=== PATIENT | female | born 1940 | race Caucasian/White ===

== ENCOUNTER 2016-09-17 20:30 | Emergency (ER) | payer MEDICARE, MEDICAID ==
--- NOTE | 2016-09-17 20:56 | ER Document Report ---
ED General - General Stated Complaint: ALTERED MENTAL STATUS Time seen by provider: 20:55 Mode of Arrival: Medic Information source: Outside Facility Records TRAVEL OUTSIDE OF THE [place] IN LAST 30 DAYS: No - HPI Patient complains to provider of: altered mental status Onset: This evening Notes: Patient is a 76-year-old female sent from local half-way for change in mental status, patient is nonverbal which half-way staff reports is not her baseline, I am unable to obtain any details from patient - Related Data Allergies/Adverse Reactions: codeine [Codeine] Allergy (Mild, Verified 03/30/14 01:51) Past Medical History - General Information source: Outside Facility Records - Social History Smoking Status: Unknown if Ever Smoked Family History: Reviewed & Not Pertinent, Other - Past Medical History Cardiac Medical History: Reports: Hx Heart Attack, Hx Hypercholesterolemia, Hx Hypertension Pulmonary Medical History: Denies: Hx Tuberculosis Neurological Medical History: Reports: Hx Cerebrovascular Accident Endocrine Medical History: Reports: Hx Diabetes Mellitus Type 1, Hx Diabetes Mellitus Type 2, Hx Hypothyroidism Renal/ Medical History: Reports: Hx End Stage Renal Disease - CRF, Hx Renal Insufficiency Musculoskeltal Medical History: Reports Hx Arthritis Skin Medical History: Reports Hx Psoriasis Psychiatric Medical History: Reports: Hx Bipolar Disorder, Hx Dementia, Hx Depression Past Surgical History: Reports: Hx Cardiac Surgery - pacemaker, Hx Pacemaker - Immunizations Hx Diphtheria, Pertussis, Tetanus Vaccination: Yes Hx Pneumococcal Vaccination: 08/23/13 Review of Systems - Review of Systems -: Yes ROS unobtainable due to patient's medical condition Physical Exam - Vital signs Vitals: Temp Pulse Resp BP Pulse Ox 97.9 F 59 L 16 149/55 H 94 09/17/16 20:37 09/17/16 20:37 09/17/16 20:37 09/17/16 20:37 09/17/16 20:37 Interpretation: Normal - General General appearance: Other - non-verbal In distress: Mild - HEENT Head: Normocephalic, Atraumatic Eyes: Normal Conjunctiva: Normal Eyelashes: Normal Pupils: Pinpoint Ears: Normal Sinus: Normal Mucous membranes: Other - Drooling Neck: Normal - Respiratory Respiratory status: No respiratory distress Chest status: Nontender Breath sounds: Nonproductive cough, Rhonchi Chest palpation: Normal - Cardiovascular Rhythm: Regular Heart sounds: Normal auscultation - Abdominal Inspection: Normal Distension: No distension Bowel sounds: Normal Tenderness: Nontender Organomegaly: No organomegaly - Back Back: Normal - Extremities Arm: Other - Left upper extremity contracted - Neurological On[place]imo Coma Scale Eye Opening: To Voice [place] Coma Scale Verbal: None [place] Coma Scale Motor: Withdraws to Pain [place] Coma Scale Total: 8 - Skin Skin Temperature: Warm Skin Moisture: Dry Skin Color: Normal Skin irregularity: other - Diffuse plaque psoriasis Course - Re-evaluation Re-evalutation: 09/18/16 02:28 Patient vital signs are stable, she has been resting comfortably, evaluation in the emergency room consistent with urinary tract infection, patient periodically wakes up, is able to answer yes and no questions appropriately, she was given a dose of antibiotics in the emergency room, she will be discharged with a prescription for same and advised to follow-up with a primary care provider or return if symptoms worsen - Vital Signs Vital signs: Temp Pulse Resp BP Pulse Ox 97.9 F 59 L 16 129/53 H 97 09/17/16 20:37 09/17/16 20:37 09/18/16 02:09 09/18/16 02:09 09/18/16 02:09 - Laboratory Result Diagrams: 09/17/16 22:45 09/17/16 22:45 Laboratory results interpreted by me: 09/17/16 09/17/16 09/17/16 21:25 22:45 22:45 RDW 14.5 H Sodium 147.1 H BUN 28 H Est GFR ( Amer) 52 L Est GFR (Non-Af Amer) 43 L Glucose 142 H Urine Protein 100 H Urine Blood MODERATE H Ur Leukocyte Esterase LARGE H - Diagnostic Test Radiology reviewed: Image reviewed, Reports reviewed - EKG Interpretation by Me EKG shows normal: Sinus rhythm Rate: Normal Rhythm: NSR [place]/QRS: RBBB, LAHB/LAFB When compared to previous EKG there are: No significant change Discharge - Discharge Clinical Impression: UTI (lower urinary tract infection) Condition: Stable Disposition: HOME, SELF-CARE Instructions: Urinary Tract Infection ([facility]) Additional Instructions: Follow up with your primary care provider in one to 2 days. Return to the emergency room immediately if symptoms worsen or any additional concerns. Prescriptions: Sulfamethoxazole/Trimethoprim [Bactrim Ds Tablet] 1 each PO BID #20 tablet
[2016-09-17] MEDS ORDERED: ONDANSETRON HCL INJ/PF 4 MG/2 ML SDV IV ONE (21:29)
[2016-09-17 22:12] LABS: VENOUS BLOOD BASE EXCESS 3.6 mmol/L; VENOUS BLOOD HCO3 30.2 mmol/L (20-32); VENOUS BLOOD PCO2 53.9 mmHg (35-63); VENOUS BLOOD PH 7.37 (7.30-7.42)
[2016-09-17 22:29] LABS: APPEARANCE,URINE CLOUDY; BILIRUBIN,URINE NEGATIVE (NEGATIVE); GLUCOSE, URINE NEGATIVE (NEGATIVE); KETONES,URINE NEGATIVE (NEGATIVE); LEUKOCYTE ESTERASE,URINE LARGE (NEGATIVE); NITRITE,URINE NEGATIVE (NEGATIVE); PROTEIN,URINE 100 mg/dL (NEGATIVE); URINE SPECIFIC GRAVITY 1.018; UROBILINOGEN,URINE NEGATIVE mg/dL (<2.0)
[2016-09-17 22:37] LABS: URINE BARBITURATES SCREEN NEGATIVE; URINE METHADONE SCREEN NEGATIVE; URINE OPIATES LOW NEGATIVE; URINE PHENCYCLIDINE SCREEN NEGATIVE
[2016-09-17 23:16] LABS: ABSOLUTE EOSINOPHILS # (AUTO) 0.1 10^3/uL (0.0-0.6); ABSOLUTE LYMPHOCYTES (AUTO) 1.7 10^3/uL (0.5-4.7); ABSOLUTE MONOCYTES (AUTO) 0.4 10^3/uL (0.1-1.4); ABSOLUTE NEUT (AUTO) 6.4 10^3/uL (1.7-8.2); BASOPHILS % (AUTO) 0.2 % (0-2); EOSINOPHILS % (AUTO) 1.1 % (0-6); HEMATOCRIT 40.3 % (36.0-47.0); HEMOGLOBIN 13.3 g/dL (12.0-15.5); HGB HCT DIFFERENCE -0.4; LYMPHOCYTES % (AUTO) 19.7 % (13-45); MEAN CORPUSCULAR HEMOGLOBIN 30.6 pg (27.0-33.4); MEAN CORPUSCULAR HGB CONC 32.9 g/dL (32.0-36.0); MEAN CORPUSCULAR VOLUME 93 fl (80-97); MONOCYTES % (AUTO) 4.8 % (3-13); RED BLOOD COUNT 4.33 10^6/uL (3.72-5.28); RED CELL DISTRIBUTION WIDTH 14.5 % (11.5-14.0); SEGMENTED NEUTROPHILS % (AUTO) 74.2 % (42-78); WHITE BLOOD COUNT 8.6 10^3/uL (4.0-10.5)
[2016-09-17 23:22] LABS: ALANINE AMINOTRANSFERASE 19 U/L (9-52); ALBUMIN 4.3 g/dL (3.5-5.0); ALKALINE PHOSPHATASE 64 U/L (38-126); ANION GAP 14 (5-19); ASPARTATE AMINO TRANSFERASE 21 U/L (14-36); BILIRUBIN,TOTAL 0.3 mg/dL (0.2-1.3); BLOOD UREA NITROGEN 28 mg/dL (7-20); CARBON DIOXIDE 28 mmol/L (22-30); CHLORIDE 105 mmol/L (98-107); CREATININE RESULT 1.22 mg/dL (0.52-1.25); GLUCOSE 142 mg/dL (75-110); MAGNESIUM 1.8 mg/dL (1.6-2.3); POTASSIUM 4.7 mmol/L (3.6-5.0); SODIUM 147.1 mmol/L (137-145); TOTAL PROTEIN 7.4 g/dL (6.3-8.2)
[2016-09-17] MEDS ORDERED: SULFAMETHOXAZOLE/TRIMETHOPRIM 800-160 MG TABLET PO ONE (23:32)
[2016-09-17] MEDS ORDERED: NORMAL SALINE 1000 ML 1,000 ML IV PRN (23:51)
[2016-09-18 07:26] VITALS: BP 128/59
--- NOTE | 2016-09-18 12:43 | EKG REPORT ---
SEVERITY:- ABNORMAL ECG - SINUS RHYTHM RBBB AND LAFB : Confirmed by: Maria Manrique MD 18-Sep-2016 12:42:30
== END 2016-09-18 07:28 | disposition home or self-care (01) ==
LOC: ER 20:30
DX: N39.0 Urinary tract infection, site not specified (principal); R41.82 Altered mental status, unspecified; E78.00 Pure hypercholesterolemia, unspecified; E11.22 Type 2 diabetes mellitus with diabetic chronic kidney disease; I12.0 Hypertensive chronic kidney disease with stage 5 chronic kidney disease or end stage renal disease; N18.6 End stage renal disease; I25.2 Old myocardial infarction; Z86.73 Personal history of transient ischemic attack (TIA), and cerebral infarction without residual deficits; Z88.6 Allergy status to analgesic agent; Z95.0 Presence of cardiac pacemaker
CPT/HCPCS: 93005; 99285; 96361; 96374; 36415; 87040; 87086; 83735; 85025; 87088; 80053; 81001; 87186; 80307; 82803; 83880; 71010; 70450; 93010; J2405; J7030

== ENCOUNTER 2016-10-02 04:25 | Emergency (ER) | payer MEDICARE, MEDICAID ==
--- NOTE | 2016-10-02 04:45 | ER Document Report ---
ED Fall - General Stated Complaint: FALL NO KNOWN INJURY Notes: Patient is a 76-year-old female that comes by EMS from [facility]-term [facility] for chief complaint of a fall, patient was reported to have rolled out of her bed onto a rubber mat which is adjacent to her bed, the fall is approximately 2 feet, patient fell, staff witnessed her after she had rotated herself around on the mat. No loss of consciousness, no reported head or neck injury, no vomiting reported. Patient is denying any areas of pain at this time. Patient is not on any blood thinners. TRAVEL OUTSIDE OF THE [place] IN LAST 30 DAYS: No - Related data Allergies/Adverse Reactions: codeine [Codeine] Allergy (Mild, Verified 03/30/14 01:51) Past Medical History - General Information source: Patient, Emergency Med Personnel - Social History Smoking Status: Never Smoker Frequency of alcohol use: None Drug Abuse: None Lives with: Family Family History: Reviewed & Not Pertinent, Other - Past Medical History Cardiac Medical History: Reports: Hx Heart Attack, Hx Hypercholesterolemia, Hx Hypertension Pulmonary Medical History: Denies: Hx Tuberculosis Neurological Medical History: Reports: Hx Cerebrovascular Accident Endocrine Medical History: Reports: Hx Diabetes Mellitus Type 2, Hx Hypothyroidism Renal/ Medical History: Reports: Hx End Stage Renal Disease - CRF, Hx Renal Insufficiency Musculoskeltal Medical History: Reports Hx Arthritis Skin Medical History: Reports Hx Psoriasis Psychiatric Medical History: Reports: Hx Bipolar Disorder, Hx Dementia, Hx Depression Past Surgical History: Reports: Hx Cardiac Surgery - pacemaker, Hx Pacemaker - Immunizations Hx Diphtheria, Pertussis, Tetanus Vaccination: Yes Hx Pneumococcal Vaccination: 08/23/13 Review of Systems - Review of Systems Constitutional: No symptoms reported EENT: No symptoms reported Cardiovascular: No symptoms reported Respiratory: No symptoms reported Gastrointestinal: No symptoms reported Genitourinary: No symptoms reported Female Genitourinary: No symptoms reported Musculoskeletal: See HPI Skin: No symptoms reported Hematologic/Lymphatic: No symptoms reported Neurological/Psychological: See HPI Physical Exam - Vital signs Vitals: Temp Pulse Resp BP Pulse Ox 98.1 F 59 L 18 152/47 H 93 10/02/16 04:34 10/02/16 04:34 10/02/16 04:34 10/02/16 04:34 10/02/16 04:34 Interpretation: Normal - General General appearance: Appears well, Alert In distress: None - HEENT Head: Normocephalic, Atraumatic Eyes: Normal Conjunctiva: Normal Extraocular movements intact: Yes Eyelashes: Normal Pupils: PERRL Ears: Normal External canal: Normal Tympanic membrane: Normal Sinus: Normal Nasal: Normal Mouth/Lips: Normal Mucous membranes: Normal Pharynx: Normal Neck: Normal - Respiratory Respiratory status: No respiratory distress Chest status: Nontender Breath sounds: Normal. No: Decreased air movement, Wheezing Chest palpation: Normal - Cardiovascular Rhythm: Regular. No: Tachycardia Heart sounds: Normal auscultation, S1 appreciated, S2 appreciated Murmur: No - Abdominal Inspection: Normal Distension: No distension Bowel sounds: Normal Tenderness: Nontender Organomegaly: No organomegaly - Back Back: Normal - non-tender back and spine, no saddle anesthesia, no signs of injury, patient moving all extremities, normal distal N/V exam, Nontender. No: Tender, Vertebra tenderness - Extremities General upper extremity: Other - left arm contracted slightly, normal UE exam otherwise General lower extremity: Other - patient complains with palpation over bilateraly femoral bursa and proximal thigh areas, otherwise unremarkable exam, no signs of injury - Neurological Neuro grossly intact: Yes Cognition: Normal Orientation: AAOx4 Onesimo Coma Scale Eye Opening: Spontaneous [place] Coma Scale Verbal: Oriented [place] Coma Scale Motor: Obeys Commands [place] Coma Scale Total: 15 Speech: Normal Motor strength normal: LUE, RUE, LLE, RLE Sensory: Normal - Psychological Associated symptoms: Normal affect, Normal mood - Skin Skin Temperature: Warm Skin Moisture: Dry Skin Color: Normal Course - Re-evaluation Re-evalutation: Patient well-appearing, reported at baseline, no signs of injury on exam, small complaints of pain with palpation of her hips and thighs, x-ray negative for any acute abnormality. - Vital Signs Vital signs: Temp Pulse Resp BP Pulse Ox 98.4 F 74 16 110/62 97 10/02/16 05:50 10/02/16 05:50 10/02/16 05:50 10/02/16 05:50 10/02/16 05:50 - Diagnostic Test Radiology reviewed: Image reviewed, Reports reviewed Discharge - Discharge Clinical Impression: Fall Qualifiers: Encounter type: initial encounter Qualified Code(s): W19.XXXA - Unspecified fall, initial encounter Condition: Stable Disposition: HOME, SELF-CARE Additional Instructions: Based on exam questionable for hip pain/injury x-rays were performed of the hips , this shows arthritis but no fracture. No other signs of injury are seen on examination tonight. Follow-up with primary care. Take Tylenol for pain if needed. Return to emergency department for any concerning or worsening symptoms including body swelling, abdominal pain, chest pain, passing out, vomiting, etc.
[2016-10-02 05:51] VITALS: BP 110/62
== END 2016-10-02 06:14 | disposition home or self-care (01) ==
LOC: ER 04:25
DX: M25.551 Pain in right hip (principal); M25.552 Pain in left hip; M79.652 Pain in left thigh; M79.651 Pain in right thigh; W06.XXXA Fall from bed, initial encounter; Y92.122 Bedroom in nursing home as the place of occurrence of the external cause; I25.2 Old myocardial infarction; I12.0 Hypertensive chronic kidney disease with stage 5 chronic kidney disease or end stage renal disease; E11.22 Type 2 diabetes mellitus with diabetic chronic kidney disease; N18.6 End stage renal disease; Z88.5 Allergy status to narcotic agent; Z95.0 Presence of cardiac pacemaker
CPT/HCPCS: 73522; 99284

== ENCOUNTER 2017-01-16 22:50 | Inpatient (IN) | payer MEDICARE, MEDICAID ==
--- NOTE | 2017-01-16 23:08 | ER Document Report ---
ED General - General Stated Complaint: ALTERED MENTAL STATUS Time Seen by Provider: 01/16/17 22:55 Notes: Patient is a 76-year-old female [id number] for chief complaint of altered mental status, EMS was unable to tell me how long patient has had altered mental status, apparently her baseline is being responsive and alert although they believe she is nonverbal, tonight patient was noted to be with decreased responsiveness, only responding to shaking or painful stimuli on initial evaluation reportedly. Patient reportedly takes her pills and cooperates although today she will not. Patient also coughed /vomiting out greenish mucus earlier today, and she was suctioned. No fevers, no diarrhea, no fall or injury, no other symptoms reported. Past medical history of multi-infarct dementia, insulin-dependent diabetes, pacemaker, chronic renal failure, cardiomyopathy. TRAVEL OUTSIDE OF THE [place] IN LAST 30 DAYS: No - Related Data Allergies/Adverse Reactions: codeine [Codeine] Allergy (Mild, Verified 03/30/14 01:51) Past Medical History - General Information source: Transfer Record, Emergency Med Personnel - Social History Smoking Status: Never Smoker Frequency of alcohol use: None Drug Abuse: None Lives with: Family Family History: Reviewed & Not Pertinent, Other - Past Medical History Cardiac Medical History: Reports: Hx Heart Attack, Hx Hypercholesterolemia, Hx Hypertension Pulmonary Medical History: Denies: Hx Tuberculosis Neurological Medical History: Reports: Hx Cerebrovascular Accident Endocrine Medical History: Reports: Hx Diabetes Mellitus Type 2, Hx Hypothyroidism Renal/ Medical History: Reports: Hx End Stage Renal Disease - CRF, Hx Renal Insufficiency Musculoskeltal Medical History: Reports Hx Arthritis Skin Medical History: Reports Hx Psoriasis Psychiatric Medical History: Reports: Hx Bipolar Disorder, Hx Dementia, Hx Depression Past Surgical History: Reports: Hx Cardiac Surgery - pacemaker, Hx Pacemaker - Immunizations Hx Diphtheria, Pertussis, Tetanus Vaccination: Yes Hx Pneumococcal Vaccination: 08/23/13 Review of Systems - Review of Systems Constitutional: No symptoms reported EENT: No symptoms reported Cardiovascular: No symptoms reported Respiratory: No symptoms reported Gastrointestinal: No symptoms reported Genitourinary: No symptoms reported Female Genitourinary: No symptoms reported Musculoskeletal: No symptoms reported Skin: No symptoms reported Hematologic/Lymphatic: No symptoms reported Neurological/Psychological: See HPI Physical Exam - Vital signs Vitals: Temp 98.1 F 01/16/17 22:55 - General General appearance: Other - patient sleeping, grunts when stimulated or addressed, no obvious distress - HEENT Head: Normocephalic, Atraumatic Eyes: Normal Conjunctiva: Normal Extraocular movements intact: Yes Eyelashes: Normal Pupils: Pinpoint Nasal: Normal Mouth/Lips: Normal Mucous membranes: Dry Neck: Normal - Respiratory Respiratory status: No respiratory distress. No: Labored, Tachypnea Breath sounds: Other - a few scattered rhonchi. No: Decreased air movement - Cardiovascular Rhythm: Regular, Bradycardia - borderline Heart sounds: Normal auscultation, S1 appreciated, S2 appreciated - Abdominal Inspection: Normal Tenderness: Nontender. No: Tender, Guarding - Back Back: Normal, Nontender - Extremities General upper extremity: Normal inspection, Normal color. No: Edema, Normal ROM - upper extremity contractures, worse on the left General lower extremity: Normal inspection, Normal color. No: Edema - Neurological Neuro grossly intact: No - grunting, irritable [place] Coma Scale Eye Opening: To Pain [place] Coma Scale Verbal: Incomprehensible [place] Coma Scale Motor: Localizes to Pain [place] Coma Scale Total: 9 - Skin Skin Temperature: Warm Skin Moisture: Dry Skin Color: Normal Course - Re-evaluation Re-evalutation: Patient grunts in response and if she is agitated (moving her, moving her arms for her) she will use her right arm to swing at us. Lungs with some congestion sounds but good air movement. No hypoxia on my evaluation. No tachycardia, hypotension, or fever. Abdomen soft on exam. No obvious cellulitis noted. Workup pending. Urine drug screen performed, this was done because patient's pupils noted to be pinpoint, however this is unremarkable. CT of the head shows no acute abnormality, chest x-ray with no obvious acute findings. CBC shows leukocytosis with elevation of neutrophils but no bandemia, chemistry shows mildly elevated potassium, baseline renal functioning, otherwise unremarkable. Dialysis consistent with infection with bacteria, large amount of white blood cells, this was a catheterized sample. Suspect altered mental status secondary to urinary tract infection in a patient with vascular dementia. Giving Rocephin , patient was given 500 cc fluid bolus. Discussed with Dr. Sherie Mulligan, recommend contacting responsible green party in case patient needs to be restrained because of her altered mental state. 01/17/17 03:29 I spoke with responsible green party/emergency contact Abby Noriega at [phone] , she states that we can do whatever we need to do including possible restraints while patient is altered, however she also makes a request for the patient to have her be placed in DO NOT RESUSCITATE status, she does not want CPR, intubation, or patient placed on ventilation. DNR form completed and signed. Dr. Mulligan admitting to telemetry - Vital Signs Vital signs: Temp Pulse Resp BP Pulse Ox 98.1 F 13 102/55 L 91 L 01/16/17 22:55 01/17/17 03:02 01/17/17 03:02 01/17/17 03:02 - Laboratory Result Diagrams: 01/16/17 23:35 01/16/17 23:35 Laboratory results interpreted by me: 01/16/17 01/16/17 01/16/17 23:35 23:35 23:35 WBC 13.0 H RDW 14.7 H Absolute Neutrophils 9.4 H Potassium 5.5 H BUN 30 H Est GFR ( Amer) 54 L Est GFR (Non-Af Amer) 44 L Glucose 147 H Calcium 10.9 H Ur Leukocyte Esterase MODERATE H Discharge - Discharge Clinical Impression: Altered mental status Qualifiers: Altered mental status type: unspecified Qualified Code(s): R41.82 - Altered mental status, unspecified Urinary tract infection Qualifiers: Urinary tract infection type: site unspecified Hematuria presence: without hematuria Qualified Code(s): N39.0 - Urinary tract infection, site not specified Disposition: ADMITTED INPATIENT Admitting Provider: Hospitalist Unit Admitted: Telemetry
[2017-01-16 23:51] LABS: ABSOLUTE BASOPHILS # (AUTO) 0.1 10^3/uL (0.0-0.2); ABSOLUTE LYMPHOCYTES (AUTO) 2.8 10^3/uL (0.5-4.7); ABSOLUTE MONOCYTES (AUTO) 0.6 10^3/uL (0.1-1.4); ABSOLUTE NEUT (AUTO) 9.4 10^3/uL (1.7-8.2); BASOPHILS % (AUTO) 0.4 % (0-2); EOSINOPHILS % (AUTO) 0.3 % (0-6); HEMATOCRIT 41.4 % (36.0-47.0); HEMOGLOBIN 13.7 g/dL (12.0-15.5); HGB HCT DIFFERENCE -0.3; LYMPHOCYTES % (AUTO) 21.8 % (13-45); MEAN CORPUSCULAR HEMOGLOBIN 30.9 pg (27.0-33.4); MEAN CORPUSCULAR VOLUME 94 fl (80-97); MONOCYTES % (AUTO) 4.9 % (3-13); RED BLOOD COUNT 4.42 10^6/uL (3.72-5.28); RED CELL DISTRIBUTION WIDTH 14.7 % (11.5-14.0); SEGMENTED NEUTROPHILS % (AUTO) 72.6 % (42-78)
[2017-01-17 00:08] LABS: APPEARANCE,URINE CLOUDY; BILIRUBIN,URINE NEGATIVE (NEGATIVE); GLUCOSE, URINE NEGATIVE (NEGATIVE); KETONES,URINE NEGATIVE (NEGATIVE); LEUKOCYTE ESTERASE,URINE MODERATE (NEGATIVE); NITRITE,URINE NEGATIVE (NEGATIVE); PROTEIN,URINE NEGATIVE (NEGATIVE); URINE SPECIFIC GRAVITY 1.023; UROBILINOGEN,URINE NEGATIVE mg/dL (<2.0)
[2017-01-17 00:14] LABS: ALANINE AMINOTRANSFERASE 27 U/L (9-52); ALBUMIN 4.4 g/dL (3.5-5.0); ALKALINE PHOSPHATASE 77 U/L (38-126); ANION GAP 14 (5-19); ASPARTATE AMINO TRANSFERASE 26 U/L (14-36); BILIRUBIN,DIRECT 0.3 mg/dL (0.0-0.4); BILIRUBIN,TOTAL 0.5 mg/dL (0.2-1.3); BLOOD UREA NITROGEN 30 mg/dL (7-20); CALCIUM 10.9 mg/dL (8.4-10.2); CARBON DIOXIDE 29 mmol/L (22-30); CHLORIDE 101 mmol/L (98-107); CREATININE RESULT 1.18 mg/dL (0.52-1.25); GLUCOSE 147 mg/dL (75-110); POTASSIUM 5.5 mmol/L (3.6-5.0); SODIUM 144.3 mmol/L (137-145); TOTAL PROTEIN 7.7 g/dL (6.3-8.2)
[2017-01-17 00:22] LABS: URINE BARBITURATES SCREEN NEGATIVE; URINE METHADONE SCREEN NEGATIVE; URINE OPIATES LOW NEGATIVE; URINE PHENCYCLIDINE SCREEN NEGATIVE
[2017-01-17] MEDS ORDERED: CEFTRIAXONE 1 GM/D5W RTU 50 ML IV ONE (00:36)
[2017-01-17] MEDS ORDERED: NORMAL SALINE 1000 ML 500 ML IV ONE (00:36)
--- NOTE | 2017-01-17 01:01 | RADIOLOGY REPORT (SQ) ---
EXAM DESCRIPTION: CT HEAD WITHOUT COMPLETED DATE/TIME: 01/17/2017 12:50 am REASON FOR STUDY: altered mental status, decreased responsiveness COMPARISON: 09/17/2016 TECHNIQUE: Axial images acquired through the brain without intravenous contrast. Images reviewed wi th bone, brain and subdural windows. Images stored on PACS. All CT scanners at this facility use dose modulation, iterative reconstruction, and/or weight based d osing when appropriate to reduce radiation dose to as low as reasonably achievable (ALARA). [facility]: Dose Right [facility]: CareDose [facility]: Dose Right [facility]: Teradose 4D [facility]: ReInnervate RADIATION DOSE: 64.61mGy. LIMITATIONS: None. FINDINGS: VENTRICLES: Prominent. CEREBRUM: No masses. No hemorrhage. No midline shift. Re- demonstration scattered lacunar infarcts . Areas of low density in the white matter most likely due to chronic micro-vascular ischemic change . No evidence for acute infarction. CEREBELLUM: No masses. No hemorrhage. No alteration of density. No evidence for acute infarction. EXTRAAXIAL SPACES: Age-related involutional change. No fluid collections. No masses. ORBITS AND GLOBE: No intra- or extraconal masses. Normal contour of globe without masses. CALVARIUM: No fracture. PARANASAL SINUSES: No fluid or mucosal thickening. SOFT TISSUES: No mass or hematoma. OTHER: No other significant finding. IMPRESSION: STABLE CT APPEARANCE OF THE BRAIN, DEMONSTRATING CHRONIC CHANGES OF ATROPHY AND MICROVAS CULAR ISCHEMIA. NO ACUTE PROCESS. TECHNICAL DOCUMENTATION: JOB ID: [id number] Quality ID # [id number]: Final reports with documentation of one or more dose reduction techniques (e.g., Au tomated exposure control, adjustment of the mA and/or kV according to patient size, use of iterative reconstruction technique) 2010 [employer]- All Rights Reserved
--- NOTE | 2017-01-17 01:24 | RADIOLOGY REPORT (SQ) ---
EXAM DESCRIPTION: CHEST SINGLE VIEW COMPLETED DATE/TIME: 01/17/2017 1:12 am REASON FOR STUDY: AMS COMPARISON: 09/17/2016 EXAM PARAMETERS: NUMBER OF VIEWS: One view. TECHNIQUE: Single frontal radiographic view of the chest acquired. RADIATION DOSE: NA LIMITATIONS: Suboptimal patient positioning results in obscuration of the left apical lung. FINDINGS: LUNGS AND PLEURA: No opacities, masses or pneumothorax. No pleural effusion. MEDIASTINUM AND HILAR STRUCTURES: No masses. Contour normal. HEART AND VASCULAR STRUCTURES: Heart normal in size. Normal vasculature. BONES: No acute findings. HARDWARE: Left anterior chest wall cardiac pacer OTHER: No other significant finding. IMPRESSION: Limited examination. No discrete radiographic evidence of acute cardiopulmonary abnorma lity. TECHNICAL DOCUMENTATION: JOB ID: [id number]
[2017-01-17] MEDS ORDERED: HYDROCODONE/ACETAMINOPHEN 5-325 MG TABLET PO PRN (03:34)
[2017-01-17] MEDS ORDERED: INSULIN LISPRO 100 UNIT/ML 3 ML VIAL SUBCUT PRN (03:36)
[2017-01-17] MEDS ORDERED: MAGNESIUM HYDROXIDE SUSP 30 ML UDCUP PO PRN (03:36)
[2017-01-17] MEDS ORDERED: DEXTROSE 50%-WATER 25 GM/50 ML DISP.SYRIN IV PRN ×2 (03:36)
[2017-01-17] MEDS ORDERED: ACETAMINOPHEN 325 MG TABLET PO PRN (03:36)
[2017-01-17] MEDS ORDERED: GLUCAGON,HUMAN RECOMB 1 MG INJ IM PRN (03:36)
[2017-01-17] MEDS ORDERED: DEXTROSE 40% GEL 15 GM TUBE PO PRN ×2 (03:36)
[2017-01-17] MEDS ORDERED: IPRATROPIUM/ALBUTEROL 0.5-2.5 MG/3 ML AMPUL NEB PRN (03:36)
[2017-01-17] MEDS ORDERED: NORMAL SALINE 1000 ML 1,000 ML IV PRN (03:45)
[2017-01-17] MEDS ORDERED: LACTULOSE SYRUP 20 GM/30 ML UDCUP PO ONE (05:17)
[2017-01-17] MEDS ORDERED: LACTULOSE SYRUP 20 GM/30 ML UDCUP NG ONE (05:17)
[2017-01-17] MEDS ORDERED: HYDROCODONE/ACETAMINOPHEN 5-325 MG TABLET NG PRN (05:19)
[2017-01-17] MEDS ORDERED: ACETAMINOPHEN 325 MG TABLET NG PRN (05:19)
--- NOTE | 2017-01-17 05:29 | PDOC H&P ---
History of Present Illness Admission Date/PCP: 01/17/17 03:36 Patient complains of: Altered mental status History of Present Illness: ZAMZAM BIANCHI is a 76 year old female with a past medical history of vascular dementia, hypertension, CVA, and diabetes who is a long-term prison resident with left-sided contractures and poorly verbal who is found by staff at the [facility] to refuse p.o. medications and diet and subsequently transferred to the emergency room for evaluation where she is found to have leukocytosis hyperkalemia and it urinalysis suggestive of urinary tract infection. Her CODE STATUS is verified by family to be DNR though understand restraints are required for NG tube and IV treatment. Is unable to provide history appearing chronically ill with cachexia and temporal wasting. Past Medical History Cardiac Medical History: Reports: Myocardial Infarction, Hyperlipidema, Hypertension Pulmonary Medical History: Denies: Tuberculosis Endocrine Medical History: Reports: Diabetes Mellitus Type 1, Diabetes Mellitus Type 2, Hypothyroidism Renal/ Medical History: Reports: End Stage Renal Disease - CRF Musculoskeltal Medical History: Reports: Arthritis Skin Medical History: Reports: Psoriasis Psychiatric Medical History: Reports: Bipolar Disorder, Dementia, Depression Past Surgical History Past Surgical History: Reports: Pacemaker Social History Information Source: [facility] Records Lives with: Family, Longterm Smoking Status: Never Smoker Frequency of Alcohol Use: None Hx Recreational Drug Use: No Hx Prescription Drug Abuse: No - Advance Directive Resuscitation Status: Do Not Resuscitate Family History Family History: Other - Unobtainable Parental Family History Reviewed: No - Unobtainable Children Family History Reviewed: No Sibling(s) Family History Reviewed.: No - Unobtainable unobtainable Medication/Allergy Home Medications: Acetaminophen [Tylenol 325 mg Tablet] 325 mg PO Q4H PRN 01/15/12 Amlodipine/Valsartan [Exforge 10-160 mg Tablet] 1 each PO DAILY 01/15/12 Aspirin/Dipyridamole [Aggrenox 25 mg/200 mg Capsule SA] 1 cap.sr PO BID Ca Carbonate/Vitamin D2/Soyb [Calcium 600 with Soy Caplet] 1 each PO DAILY 01/14 Calcipotriene [Dovonex Solution] 60 ml TP BID 01/15/12 Glimepiride 2 mg PO DAILY 01/15/12 Hydrocortisone [Hydrocortisone 0.5% Cream 28.35 gm] 1 applic TP DAILY 01/15/12 Multivitamin [Vitamin A Day] 1 each PO DAILY 01/15/12 Pravastatin Sodium 40 mg PO QHS 01/15/12 Ranitidine HCl [Zantac 300 mg Tablet] 300 mg PO DAILY 01/15/12 Carvedilol [Coreg 12.5 mg Tablet] 12.5 mg PO DAILY 10/18/12 Lidocaine [Lidoderm 5% (700 mg) Transdermal Patch] 1 patch TP Q12 10/18/12 Sertraline HCl 100 mg PO QAM 03/14/14 Alprazolam [Xanax 0.25 mg Tablet] 0.25 mg PO BID #30 tablet 03/16/14 Folic Acid [Folvite 1 mg Tablet] 1 mg PO DAILY #30 tablet 03/16/14 Hydrocodone/Acetaminophen [Vicodin 5-300 mg Tablet] 1 tab PO Q8HP PRN #10 tab Levothyroxine Sodium [Tirosint] 150 mcg PO DAILY #30 capsule 03/16/14 Quetiapine Fumarate [Seroquel 25 mg Tablet] 12.5 mg PO BID #30 tablet 03/16/14 Clobetasol Propionate/Emoll [Clobetasol Emollient 0.05% Crm] 1 applic TP BID Haloperidol Decanoate 25 mg IM Q14D 06/13/14 Insulin Aspart [Novolog Insulin (Aspart) 100 unit/mL] 0 unit SUBCUT .SLD SCALE 06/13/14 Lorazepam Gel 1 applic TOP TID 06/13/14 Mineral Oil/Petrolatum,White [Eucerin Cream 114 Gm/Jar] 1 applic TP BID Nystatin [Mycostatin Cream] 1 applic TP BID 06/13/14 Nitrofurantoin/Nitrofuran Mac [Macrobid 100 mg Capsule] 1 tab PO BID #20 capsule 07/06/14 Sulfamethoxazole/Trimethoprim [Bactrim Ds Tablet] 1 each PO BID #20 tablet 09/18 Allergies/Adverse Reactions: codeine [Codeine] Allergy (Mild, Verified 03/30/14 01:51) Review of Systems ROS unobtainable: Due to mental status - Profound dementia Physical Exam Vital Signs: Temp Pulse Resp BP Pulse Ox 98.1 F 15 104/46 L 91 L 01/16/17 22:55 01/17/17 05:03 01/17/17 05:03 01/17/17 05:03 General appearance: PRESENT: disheveled, mild distress, thin, other - Temporal wasting and cachexia unable to track. ABSENT: cooperative Head exam: PRESENT: atraumatic, normocephalic Eye exam: PRESENT: conjunctiva pink, EOMI, PERRLA. ABSENT: scleral icterus Ear exam: PRESENT: normal external ear exam Mouth exam: PRESENT: dry mucosa, tongue midline Neck exam: ABSENT: carotid bruit, JVD, lymphadenopathy, thyromegaly Respiratory exam: PRESENT: clear to auscultation cadence. ABSENT: rales, rhonchi, wheezes Cardiovascular exam: PRESENT: RRR. ABSENT: diastolic murmur, rubs, systolic murmur Pulses: PRESENT: normal dorsalis pedis pul GI/Abdominal exam: PRESENT: normal bowel sounds, soft. ABSENT: distended, guarding, mass, organolmegaly, rebound, tenderness Rectal exam: PRESENT: deferred Extremities exam: PRESENT: full ROM. ABSENT: calf tenderness, clubbing, pedal edema Neurological exam: PRESENT: altered, CN II-XII grossly intact, aphasic. ABSENT : motor sensory deficit Psychiatric exam: PRESENT: flat affect Skin exam: PRESENT: dry, intact, warm. ABSENT: cyanosis, rash Results Impressions: Head CT 01/16/17 23:05 IMPRESSION: STABLE CT APPEARANCE OF THE BRAIN, DEMONSTRATING CHRONIC CHANGES OF ATROPHY AND MICROVASCULAR ISCHEMIA. NO ACUTE PROCESS. Chest X-Ray 01/16/17 23:06 IMPRESSION: Limited examination. No discrete radiographic evidence of acute cardiopulmonary abnormality. Assessment & Plan - Diagnosis (1) Urinary tract infection Qualifiers: Urinary tract infection type: site unspecified Hematuria presence: without hematuria Qualified Code(s): N39.0 - Urinary tract infection, site not specified Is this a current diagnosis for this admission?: YesPlan: Supportive care, empiric antibiotics, follow-up blood and urine culture with CBC and chemistry (2) Hyperkalemia Is this a current diagnosis for this admission?: YesPlan: NG tube placement for lactulose versus Kayexalate reevaluate chemistry (3) Encephalopathy acute Is this a current diagnosis for this admission?: YesPlan: Secondary to dementia on delirium with acute illness continue supportive care restraints as needed (4) Altered mental status Qualifiers: Altered mental status type: unspecified Qualified Code(s): R41.82 - Altered mental status, unspecified (5) Dementia Plan: Supportive care restraints as needed - Inpatient Certification Medical Necessity: Need Close Monitoring Due to Risk of Patient Decompensation
[2017-01-17] MEDS ORDERED: PHARMACY COMMUNICATION ORDER MC NR (05:30)
[2017-01-17] MEDS ORDERED: SERTRALINE HCL 50 MG TABLET NG SCH (08:00)
[2017-01-17] MEDS ORDERED: SERTRALINE HCL 50 MG TABLET PO SCH (08:00)
[2017-01-17] MEDS ORDERED: GLIMEPIRIDE 1 MG TABLET PO SCH (08:00)
[2017-01-17] MEDS ORDERED: NORMAL SALINE 1000 ML 2,000 ML IV ONE (09:45)
[2017-01-17] MEDS ORDERED: LEVOTHYROXINE SODIUM 0.15 MG TABLET PO SCH (10:00)
[2017-01-17] MEDS ORDERED: VALSARTAN 160 MG TABLET PO SCH (10:00)
[2017-01-17] MEDS ORDERED: VALSARTAN 160 MG TABLET NG SCH (10:00)
[2017-01-17] MEDS ORDERED: CARVEDILOL 12.5 MG TABLET NG SCH (10:00)
[2017-01-17] MEDS ORDERED: ALPRAZOLAM 0.25 MG TABLET PO SCH (10:00)
[2017-01-17] MEDS ORDERED: QUETIAPINE FUMARATE 25 MG TABLET NG SCH (10:00)
[2017-01-17] MEDS ORDERED: QUETIAPINE FUMARATE 25 MG TABLET PO SCH (10:00)
[2017-01-17] MEDS ORDERED: AMLODIPINE BESYLATE 10 MG TABLET PO SCH (10:00)
[2017-01-17] MEDS ORDERED: ASPIRIN/DIPYRIDAMOLE 25-200 MG 1 CAP.SR CPMP.12HR PO SCH (10:00)
[2017-01-17] MEDS ORDERED: CARVEDILOL 12.5 MG TABLET PO SCH (10:00)
[2017-01-17] MEDS ORDERED: BISACODYL 10 MG SUPP.RECT PR PRN (10:42)
[2017-01-17] MEDS: HEPARIN SOD (PORCINE) 5,000 UNIT/ML 1 ML SYRINGE SUBCUT SCH ×3 (12:22→23:15)
[2017-01-17] MEDS: DOCUSATE SODIUM 100 MG CAPSULE PO SCH ×2 (12:22→17:34)
[2017-01-17] MEDS: LEVOTHYROXINE SODIUM 0.15 MG TABLET NG SCH (12:22)
[2017-01-17] MEDS: FAMOTIDINE INJ/PF 20 MG/2 ML SDV IV SCH ×2 (12:31→23:15)
[2017-01-17] MEDS: CEFTRIAXONE 1 GM/D5W RTU 50 ML IV SCH (12:31)
[2017-01-17] MEDS: NORMAL SALINE 1000 ML 1,000 ML IV PRN (12:32)
--- NOTE | 2017-01-17 14:34 | RADIOLOGY REPORT (SQ) ---
EXAM DESCRIPTION: KUB/ABDOMEN (SINGLE VIEW) COMPLETED DATE/TIME: 01/17/2017 2:25 pm REASON FOR STUDY: PAIN COMPARISON: None. NUMBER OF VIEWS: One view. TECHNIQUE: Supine radiographic image of the abdomen acquired. LIMITATIONS: Limited study. The right side is not completely included. FINDINGS: BOWEL GAS PATTERN: Normal bowel gas pattern. No dilated loops. CALCIFICATIONS: No suspicious calcifications. SOFT TISSUES: No gross mass or suggestion of organomegaly. HARDWARE: Surgical clips. BONES: No acute fracture. No worrisome bone lesions. OTHER: No other significant finding. IMPRESSION: NO RADIOGRAPHIC EVIDENCE FOR ACUTE ABDOMINAL DISEASE. TECHNICAL DOCUMENTATION: JOB ID: [id number] [email or web address]- All Rights Reserved
--- NOTE | 2017-01-17 14:35 | RADIOLOGY REPORT (SQ) ---
EXAM DESCRIPTION: CHEST SINGLE VIEW COMPLETED DATE/TIME: 01/17/2017 2:25 pm REASON FOR STUDY: ?RLL pna COMPARISON: 01/17/2017 0451 hours. EXAM PARAMETERS: NUMBER OF VIEWS: One view. TECHNIQUE: Single frontal radiographic view of the chest acquired. RADIATION DOSE: NA LIMITATIONS: None. FINDINGS: LUNGS AND PLEURA: No opacities, masses or pneumothorax. No pleural effusion. MEDIASTINUM AND HILAR STRUCTURES: No masses. Contour normal. HEART AND VASCULAR STRUCTURES: Heart normal in size. Normal vasculature. BONES: No acute findings. HARDWARE: Pacemaker. OTHER: No other significant finding. IMPRESSION: NO ACUTE RADIOGRAPHIC FINDING IN THE CHEST. TECHNICAL DOCUMENTATION: JOB ID: [id number]
[2017-01-17] MEDS ORDERED: RISPERIDONE 0.5 MG TAB.RAPDIS PO PRN (16:35)
--- NOTE | 2017-01-17 17:05 | PDOC PROGRESS REPORT ---
Subjective Progress Note for:: 01/17/17 Subjective:: Called by nursing staff for hypotension. Selected Entries 01/17/17 01/17/17 08:02 10:00 Temperature 97.7 F Pulse Rate 59 L Respiratory 16 Rate Blood Pressure 85/28 L O2 Sat by Pulse 92 Oximetry Oxygen Delivery Room Air Method ( includes room air) Patient was given 2 L normal saline bolus and evaluated. Patient responsive to pain and noxious stimuli but otherwise unable to obtain any review of systems from patient. Physical Exam Vital Signs: Temp Pulse Resp BP Pulse Ox 98.2 F 60 15 131/49 H 99 01/17/17 05:45 01/17/17 06:00 01/17/17 05:45 01/17/17 05:45 01/17/17 05:45 Intake & Output 01/16/17 01/17/17 01/18/17 06:59 06:59 06:59 Weight 55.8 kg Exam: GENERAL: Responsive only to pain, noxious stimuli HEENT: conjunctiva clear, nonicteric, dry mucous membranes, no JVD, midline trachea RESPIRATORY: rhonchi RLL CARDIAC: Regular rate and rhythm, no murmurs/gallops/rubs ABDOMEN: Soft, mildly distended, mildly tender, hypoactive bowel sounds, no rebound, no guarding, rigidity EXTREMETIES: No edema, cyanosis, clubbing NEUROLOGIC: Left upper extremity and contracted bilateral lower extremity contractures, left-sided facial droop Skin: Erythematous scale on flexor surfaces Results Impressions: Head CT 01/16/17 23:05 IMPRESSION: STABLE CT APPEARANCE OF THE BRAIN, DEMONSTRATING CHRONIC CHANGES OF ATROPHY AND MICROVASCULAR ISCHEMIA. NO ACUTE PROCESS. Chest X-Ray 01/16/17 23:06 IMPRESSION: Limited examination. No discrete radiographic evidence of acute cardiopulmonary abnormality. Assessment & Plan - Diagnosis (1) Sepsis Is this a current diagnosis for this admission?: YesPlan: Likely secondary to UTI However had concerns for previously undiagnosed pneumonia (2) Urinary tract infection Qualifiers: Urinary tract infection type: site unspecified Hematuria presence: without hematuria Qualified Code(s): N39.0 - Urinary tract infection, site not specified Is this a current diagnosis for this admission?: YesPlan: Patient empirically placed on Rocephin pending cultures. (3) Hypotension Is this a current diagnosis for this admission?: YesPlan: Likely secondary to intravascular volume depletion (4) Hemiparesis affecting left side as late effect of cerebrovascular accident Is this a current diagnosis for this admission?: Yes (5) Encephalopathy acute Is this a current diagnosis for this admission?: Yes (6) Dementia Qualifiers: Dementia type: Lewy body dementia Dementia behavioral disturbance: with behavioral disturbance Qualified Code(s): G31.83 - Dementia with Lewy bodies; F02.81 - Dementia in other diseases classified elsewhere with behavioral disturbance Is this a current diagnosis for this admission?: YesPlan: Patient has history of Lewy body dementia with behavioral disturbance. Continue supportive care and we will resume her medications once able. IV Ativan as needed if she does take this at home. I do find it suspicious the patient is recorded to have taken Ativan daily but her urine toxicology is negative. Will give Ativan here and repeat urine toxicology. (7) Hypothyroidism Qualifiers: Hypothyroidism type: unspecified Qualified Code(s): E03.9 - Hypothyroidism, unspecified Is this a current diagnosis for this admission?: YesPlan: Synthroid (8) Cerebral atherosclerosis Is this a current diagnosis for this admission?: Yes (9) Do not resuscitate Is this a current diagnosis for this admission?: YesPlan: Abby Granados is listed as surrogate decision-maker - Time Time Spent with patient: 25-34 minutes Medications reviewed and adjusted accordingly: Yes
[2017-01-17] MEDS: LORAZEPAM INJ 2 MG/1 ML VIAL IV PRN (17:34)
[2017-01-17] MEDS: CALCIUM CARBONATE 500 MG TABLET PO SCH (17:34)
[2017-01-17] MEDS: CLOBETASOL PROPIONATE 0.05% CREAM 15 GM TOP SCH (17:35)
[2017-01-17] MEDS ORDERED: (PENDING PHARMACY ID) (Betamet Diprop/Prop Gly [Betamethasone Dp Aug 0.05% Cream] 1 APPLIC TOP SCH (18:00)
[2017-01-17] MEDS ORDERED: TACROLIMUS TOP SCH (18:00)
[2017-01-17] MEDS ORDERED: [UNRECOGNIZED DRUG - OTHER] TOP SCH (21:00)
[2017-01-17] MEDS ORDERED: CALCIPOTRIENE TOP SCH (21:00)
[2017-01-17] MEDS ORDERED: DIAZEPAM INJ 10 MG/2 ML DISP.SYRIN IV ONE (22:15)
[2017-01-17] MEDS: CARVEDILOL 12.5 MG TABLET PO SCH (23:15)
[2017-01-17] MEDS: ASPIRIN/DIPYRIDAMOLE 25-200 MG 1 CAP.SR CPMP.12HR PO SCH (23:15)
[2017-01-18 04:49] LABS: ABSOLUTE EOSINOPHILS # (AUTO) 0.1 10^3/uL (0.0-0.6); ABSOLUTE LYMPHOCYTES (AUTO) 2.6 10^3/uL (0.5-4.7); ABSOLUTE MONOCYTES (AUTO) 0.4 10^3/uL (0.1-1.4); ABSOLUTE NEUT (AUTO) 4.8 10^3/uL (1.7-8.2); BASOPHILS % (AUTO) 0.3 % (0-2); EOSINOPHILS % (AUTO) 1.6 % (0-6); HEMOGLOBIN 11.7 g/dL (12.0-15.5); HGB HCT DIFFERENCE 0.1; LYMPHOCYTES % (AUTO) 32.6 % (13-45); MEAN CORPUSCULAR HEMOGLOBIN 31.3 pg (27.0-33.4); MEAN CORPUSCULAR HGB CONC 33.6 g/dL (32.0-36.0); MEAN CORPUSCULAR VOLUME 93 fl (80-97); MONOCYTES % (AUTO) 4.4 % (3-13); RED BLOOD COUNT 3.76 10^6/uL (3.72-5.28); RED CELL DISTRIBUTION WIDTH 14.5 % (11.5-14.0); SEGMENTED NEUTROPHILS % (AUTO) 61.1 % (42-78); WHITE BLOOD COUNT 7.9 10^3/uL (4.0-10.5)
[2017-01-18 05:00] LABS: ANION GAP 11 (5-19); BLOOD UREA NITROGEN 16 mg/dL (7-20); CALCIUM 8.7 mg/dL (8.4-10.2); CARBON DIOXIDE 22 mmol/L (22-30); CHLORIDE 108 mmol/L (98-107); CREATININE RESULT 0.87 mg/dL (0.52-1.25); GLUCOSE 70 mg/dL (75-110); MAGNESIUM 1.8 mg/dL (1.6-2.3); POTASSIUM 3.9 mmol/L (3.6-5.0); SODIUM 141.3 mmol/L (137-145)
[2017-01-18] MEDS: HEPARIN SOD (PORCINE) 5,000 UNIT/ML 1 ML SYRINGE SUBCUT SCH ×3 (06:09→22:52)
[2017-01-18] MEDS: NORMAL SALINE 1000 ML 1,000 ML IV PRN (06:10)
[2017-01-18] MEDS ORDERED: SERTRALINE HCL 50 MG TABLET PO SCH (08:00)
[2017-01-18] MEDS ORDERED: LEVOTHYROXINE SODIUM 0.025 MG TABLET PO SCH (08:00)
[2017-01-18] MEDS ORDERED: PYRIDOXINE PO SCH (10:00)
[2017-01-18] MEDS ORDERED: CALCIPOTRIENE TOP SCH ×2 (10:00→21:00)
[2017-01-18] MEDS ORDERED: [UNRECOGNIZED DRUG - OTHER] PO SCH (10:00)
[2017-01-18] MEDS ORDERED: CYANOCOBALAMIN/FA/PYRIDOXINE TABLET PO SCH (10:00)
[2017-01-18] MEDS ORDERED: HYDROPHIL PETROLAT TOP SCH (10:00)
[2017-01-18] MEDS ORDERED: AMLODIPINE PO SCH (10:00)
[2017-01-18] MEDS ORDERED: CYANOCOBALAMIN PO SCH (10:00)
[2017-01-18] MEDS ORDERED: VALSARTAN PO SCH (10:00)
[2017-01-18] MEDS ORDERED: [UNRECOGNIZED DRUG - OTHER] TOP SCH (10:00)
[2017-01-18] MEDS ORDERED: MINERAL OIL TOP SCH (10:00)
[2017-01-18] MEDS: CALCIUM CARBONATE 500 MG TABLET PO SCH ×2 (10:26→18:03)
[2017-01-18] MEDS: POLYETHYLENE GLYCOL 3350 POWDER 17 GM/1 PACKET PO SCH (10:26)
[2017-01-18] MEDS: VALSARTAN 160 MG TABLET PO SCH (10:26)
[2017-01-18] MEDS: FAMOTIDINE 20 MG TABLET PO SCH (10:26)
[2017-01-18] MEDS: AMLODIPINE BESYLATE 10 MG TABLET PO SCH (10:26)
[2017-01-18] MEDS: ASPIRIN/DIPYRIDAMOLE 25-200 MG 1 CAP.SR CPMP.12HR PO SCH ×2 (10:26→22:11)
[2017-01-18] MEDS: LEVOTHYROXINE SODIUM 0.15 MG TABLET NG SCH (10:27)
[2017-01-18] MEDS: CETIRIZINE 10 MG TABLET PO SCH (10:27)
[2017-01-18] MEDS: FAMOTIDINE INJ/PF 20 MG/2 ML SDV IV SCH ×2 (10:27→22:12)
[2017-01-18] MEDS: CARVEDILOL 12.5 MG TABLET PO SCH ×2 (10:27→22:12)
[2017-01-18] MEDS: DOCUSATE SODIUM 100 MG CAPSULE PO SCH ×2 (10:27→18:03)
[2017-01-18] MEDS: CHOLECALCIFEROL (D3) 1,000 UNIT TABLET PO SCH (10:27)
[2017-01-18] MEDS: CEFTRIAXONE 1 GM/D5W RTU 50 ML IV SCH (10:28)
[2017-01-18] MEDS: CLOBETASOL PROPIONATE 0.05% CREAM 15 GM TOP SCH ×2 (10:29→17:39)
[2017-01-18] MEDS: DIVALPROEX SODIUM 125 MG CAP.SPRINK PO SCH (10:29)
[2017-01-18] MEDS: PANTOT AC/MIN OIL/PET HY-PHL OINT 50 GM TOP SCH (10:29)
[2017-01-18] MEDS: HYDROCORTISONE 1% CREAM 28.35 GM TP SCH ×2 (10:30→22:11)
[2017-01-18] MEDS: SERTRALINE HCL 50 MG TABLET PO SCH (10:41)
--- NOTE | 2017-01-18 14:23 | PDOC PROGRESS REPORT ---
Subjective Progress Note for:: 01/18/17 Subjective:: Overnight, patient was confused and disoriented. Today she reports she feels better. Her caregiver is at bedside, Damion. Patient denies fever, chills, chest pain, shortness of breath, nausea, vomiting , constipation, diarrhea. Physical Exam Vital Signs: Temp Pulse Resp BP Pulse Ox 98.3 F 61 16 117/45 L 98 01/18/17 12:00 01/18/17 13:32 01/18/17 13:32 01/18/17 12:00 01/18/17 12:00 Intake & Output 01/17/17 01/18/17 01/19/17 06:59 06:59 06:59 Intake Total 3707 Balance 3707 Weight 55.8 kg 58.1 kg 58.1 kg Exam: GENERAL: A+Ox1, NAD HEENT: conjunctiva clear, nonicteric, dry mucous membranes, no JVD, midline trachea RESPIRATORY: CTAB CARDIAC: Regular rate and rhythm, no murmurs/gallops/rubs ABDOMEN: Soft, not distended, nontender, hypoactive bowel sounds, no rebound, no guarding, rigidity EXTREMETIES: No edema, cyanosis, clubbing NEUROLOGIC: Left upper extremity and contracted bilateral lower extremity contractures, Skin: Erythematous scale on flexor surfaces Results Laboratory Results: 01/18/17 04:13 01/18/17 04:13 01/18/17 01/18/17 04:13 04:13 WBC 7.9 RBC 3.76 Hgb 11.7 L Hct 35.0 L MCV 93 MCH 31.3 MCHC 33.6 RDW 14.5 H Plt Count 183 Seg Neutrophils % 61.1 Lymphocytes % 32.6 Monocytes % 4.4 Eosinophils % 1.6 Basophils % 0.3 Absolute Neutrophils 4.8 Absolute Lymphocytes 2.6 Absolute Monocytes 0.4 Absolute Eosinophils 0.1 Absolute Basophils 0.0 Sodium 141.3 Potassium 3.9 Chloride 108 H Carbon Dioxide 22 Anion Gap 11 BUN 16 Creatinine 0.87 Est GFR ( Amer) > 60 Est GFR (Non-Af Amer) > 60 Glucose 70 L Calcium 8.7 Magnesium 1.8 Impressions: Head CT 01/16/17 23:05 IMPRESSION: STABLE CT APPEARANCE OF THE BRAIN, DEMONSTRATING CHRONIC CHANGES OF ATROPHY AND MICROVASCULAR ISCHEMIA. NO ACUTE PROCESS. KUB X-Ray 01/17/17 05:17 IMPRESSION: NO RADIOGRAPHIC EVIDENCE FOR ACUTE ABDOMINAL DISEASE. Chest X-Ray 01/17/17 14:00 IMPRESSION: NO ACUTE RADIOGRAPHIC FINDING IN THE CHEST. Assessment & Plan - Diagnosis (1) Sepsis Qualifiers: Sepsis type: Streptococcus group B Qualified Code(s): A40.1 - Sepsis due to streptococcus, group B Is this a current diagnosis for this admission?: YesPlan: Likely secondary to UTI (2) Urinary tract infection Qualifiers: Urinary tract infection type: site unspecified Hematuria presence: without hematuria Qualified Code(s): N39.0 - Urinary tract infection, site not specified Is this a current diagnosis for this admission?: YesPlan: Patient with Group B streptococcus Patient transitioned to ampicillin. (3) Hypotension Is this a current diagnosis for this admission?: YesPlan: Improved. Secondary to sepsis. (4) Hemiparesis affecting left side as late effect of cerebrovascular accident Is this a current diagnosis for this admission?: Yes (5) Encephalopathy acute Is this a current diagnosis for this admission?: YesPlan: Improved, but not quite back to baseline according to caregiver. (6) Dementia Qualifiers: Dementia type: Lewy body dementia Dementia behavioral disturbance: with behavioral disturbance Qualified Code(s): G31.83 - Dementia with Lewy bodies; F02.81 - Dementia in other diseases classified elsewhere with behavioral disturbance Is this a current diagnosis for this admission?: YesPlan: Patient has history of Lewy body dementia with behavioral disturbance. Continue supportive care and we will resume her medications once able. transition to home medications Repeat urine toxicology. (7) Hypothyroidism Qualifiers: Hypothyroidism type: unspecified Qualified Code(s): E03.9 - Hypothyroidism, unspecified Is this a current diagnosis for this admission?: YesPlan: Synthroid (8) Cerebral atherosclerosis Is this a current diagnosis for this admission?: Yes (9) Do not resuscitate Is this a current diagnosis for this admission?: Yes - Time Time Spent with patient: 25-34 minutes Medications reviewed and adjusted accordingly: Yes Anticipated discharge: SNF Within: within 24 hours
[2017-01-18] MEDS ORDERED: AMPICILLIN TRIHYD 500 MG CAPSULE PO ONE (15:30)
[2017-01-18 17:43] LABS: URINE BARBITURATES SCREEN NEGATIVE; URINE METHADONE SCREEN NEGATIVE; URINE OPIATES LOW NEGATIVE; URINE PHENCYCLIDINE SCREEN NEGATIVE
[2017-01-18] MEDS: AMPICILLIN TRIHYD 500 MG CAPSULE PO SCH (23:21)
[2017-01-19] MEDS: LORAZEPAM INJ 2 MG/1 ML VIAL IV PRN ×2 (00:35→18:16)
[2017-01-19] MEDS: AMPICILLIN TRIHYD 500 MG CAPSULE PO SCH ×3 (06:53→18:48)
[2017-01-19] MEDS: HEPARIN SOD (PORCINE) 5,000 UNIT/ML 1 ML SYRINGE SUBCUT SCH ×2 (06:53→18:48)
[2017-01-19] MEDS ORDERED: LEVOTHYROXINE SODIUM 0.025 MG TABLET PO SCH (08:00)
[2017-01-19] MEDS ORDERED: LEVOTHYROXINE SODIUM 0.15 MG TABLET PO SCH (08:00)
--- NOTE | 2017-01-19 10:07 | Physician Advisory Note ---
Physician Advisor ProgressNote .: Pursuant to the plan for [facility], I have reviewed the medical record for this patient. Physician Advisor Statement: Possible documentation opportunities if attending agrees: 1. "suspected early sepsis, POA, with AMS, hypoxemia, leukocytosis, & then acute hypotension, likely due to UTI" - Initial O2 sat 88% on RA gives P/F ratio 257. ED dr reported total GCS of only 9 initially. Initial WBC 13.0. MAP dropped from initial 124 to 70- 80s, then to 60s & as low as 47 within a couple hrs of adm. - Pt did not have tachycardia, but is chronically on beta-saranya which would prevent this. - Therefore, pt met Sepsis-3 (SOFA & qSOFA) criteria for dx of acute sepsis. SOFA score = 5 initially,then 6 with development of hypotension. 2. Do you believe the acute hypotension on 01/17 was due to possible acute sepsi s manifesting itself further, or simply due to volume depletion? If you agree, please consider documenting "I believe this pt's acute hypotension was due to sepsis." 3. "Lt hemiparesis due to past CVA" 4. "suspected protein-calorie malnutrition [state mild, mod, or severe] with BMI 24.5, ____[?wt loss, ?appetite loss, ]" [if possible, give specifics on intake, wt loss, loss of SQ fat & muscle mass, diminished hand cementer oil well strength, & clinical importance such as (A) nutritional assessment ordered, (B) modified diet or supplements ordered, (C) additional labs ordered, (D) prolonged wound healing time, (E) delayed infxn clearance] - H&P already noted "cachexia"/temporal wasting. As always, if concerned about any unstable VS or abnormal labs, please comment on them - what bad things they might indicate, why they concern you - & note what doing about them. Please also document each day the potential clinical problems you are concerned could occur if pt not kept in hospital for tx at this time. (These points are huerta - if present in each note, attending's status decision should be sufficiently supported.) Discussion: 76yo from SNF, w/CKD stage __, DM-2, HTN, HLD, ___ cardiomyopathy w/pacemaker, Lewy body dementia w/beh disturbance, CVA w/Lt hemiparesis/contractures, hypothyroidism, bipolar d/o - but no underlying lung dz - came to ED late 01/16 PM with decreased responsiveness, coughed/vomited greenish mucus (was suctioned @[facility]), scattered rhonchi, neg CXR but evidence of volume depletion, (+)U/A. Initial VS = T98.1, HR 62, R 16-21, BP 134/119 sat 88%. WBC 13.0, K 5.5, Ca 10.9, BUN 30, Cr 1.18, glc 147, CT & CXR = no acute changes. Shortly after admission, despite prompt initiation of IV Rocephin, 500ml IVF bolus initially & then IVF @200/hr, pt dropped BP from 130s-140s systolic to 100s systolic, then as low as 85/28. Attending documented concern for sepsis, continued IVF aggressive resuscitation & IV abx. She also noted pt reportedly takes Ativan daily but UDS was negative, which made her suspicious that pt might be having benzodiazepine withdrawal (repeat UDS, however, remained neg even after Ativan given in hospital). Attending ordered Rocephin IV, IV NS @200ml/hr, tele monitoring, falls & aspir & sz precautions, I/Os, daily wts, VS q4h, prn nebs. Status: A pt w/UTI & associated AMS, alone or w/intravascular volume depletion, is most appropriate to come in as Outpt Obs. However, this Medicare pt, who had already spent 1MN in hospital care in the ED prior to adm order, did meet Sepsis -3 criteria at the time of admission, & shortly thereafter dropped her BP severely despite ongoing IVF resuscitation, and the oncoming attending was called by nurse who was concerned about patient's instability. Attending was also concerned, & documented her concern for presence of sepsis due to UTI & possible PNA. She discontinued pt's amlodipine, ordered CXR repeat given concern for PNA, & ordered O2. She certainly had clinical reasons to consider pt not sufficiently stable for d/c on 01/17 & needing 2nd MN of hosptial care/ monitoring. Hypotension simply due to volume depletion would be less likely to drop so quickly after already starting IVF than hypotension due to evolving sepsis. Indeed, attending documented on 01/18 that she felt the hypotension was due to sepsis. Pt at higher risk for acute morbidity such as acute CHF/pulmonary edema from IVF resuscitation given undelrying cardiomyopathy. Also at increased risk for SANTOS given underlying CKD & intravascular volume depletion. As of 01/18, after 2MN of hospital Inpt care, although BP & WBC were improved, pt was hypoglycemic w/glc 70, & attending documented the pt's mental status was not yet back to baseline, & continued IVF while adjusting abx based on cx results, continuing to monitor closely clinically for potential new issues to develop. She also restarted amlodipine with monitoring for toleration. Tx & monitoring in inpatient hospital setting medically reasonable & necessary to protect pt's health, safety, & medical condition. Appropriate for Inpt status. Thanks for your help with documentation accuracy/specificity improvement! Diana Stanley MD ON LICENSE OF [facility] Physician Advisor, Fellow of Hospital Medicine
[2017-01-19] MEDS: CARVEDILOL 12.5 MG TABLET PO SCH (11:26)
[2017-01-19] MEDS: ASPIRIN/DIPYRIDAMOLE 25-200 MG 1 CAP.SR CPMP.12HR PO SCH (11:26)
[2017-01-19] MEDS: CHOLECALCIFEROL (D3) 1,000 UNIT TABLET PO SCH (11:27)
[2017-01-19] MEDS: SERTRALINE HCL 50 MG TABLET PO SCH (11:28)
[2017-01-19] MEDS: DOCUSATE SODIUM 100 MG CAPSULE PO SCH (11:28)
[2017-01-19] MEDS: VALSARTAN 160 MG TABLET PO SCH (11:28)
[2017-01-19] MEDS: AMLODIPINE BESYLATE 10 MG TABLET PO SCH (11:29)
[2017-01-19] MEDS: CETIRIZINE 10 MG TABLET PO SCH (11:29)
[2017-01-19] MEDS: FAMOTIDINE INJ/PF 20 MG/2 ML SDV IV SCH (11:29)
[2017-01-19] MEDS: FAMOTIDINE 20 MG TABLET PO SCH (11:29)
[2017-01-19] MEDS: DIVALPROEX SODIUM 125 MG CAP.SPRINK PO SCH (11:30)
[2017-01-19] MEDS: POLYETHYLENE GLYCOL 3350 POWDER 17 GM/1 PACKET PO SCH (11:30)
[2017-01-19] MEDS: CALCIUM CARBONATE 500 MG TABLET PO SCH (11:30)
[2017-01-19] MEDS: CLOBETASOL PROPIONATE 0.05% CREAM 15 GM TOP SCH ×2 (11:32→18:48)
[2017-01-19] MEDS: PANTOT AC/MIN OIL/PET HY-PHL OINT 50 GM TOP SCH (11:32)
[2017-01-19] MEDS: HYDROCORTISONE 1% CREAM 28.35 GM TP SCH ×2 (11:33→20:19)
--- NOTE | 2017-01-19 11:55 | PDOC TRANSFER SUMMARY ---
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 accident Is this a current diagnosis for this admission?: Yes (3) Hyperkalemia Is this a current diagnosis for this admission?: Yes (4) Dementia Is this a current diagnosis for this admission?: Yes (5) Do not resuscitate Is this a current diagnosis for this admission?: Yes - Additional Information Resuscitation Status: Do Not Resuscitate Discharge Diet: Regular Discharge Activity: Activity As Tolerated Home Medications: Acetaminophen [Tylenol 325 mg Tablet] 650 mg PO TID 01/17/17 Aspirin/Dipyridamole [Aggrenox 25 mg-200 mg Capsule] 1 cap PO Q12 01/17/17 Betamet Diprop/Prop Gly [Betamethasone Dp Aug 0.05% Cream] 1 applic TOP BID Calcipotriene [Dovonex] 1 applic TOP MOTUWETHFR@1000 01/17/17 Calcipotriene [Dovonex] 1 applic TOP MOTUWETHFR@209901/17/17 Calcipotriene [Dovonex] 1 applic TOP SUFRSA@99901/17/17 Calcipotriene [Dovonex] 1 applic TOP SUFRSA@209901/17/17 Clobetasol Propionate [Temovate 0.05% Cream 15 gm] 1 applic TOP BID 01/17/17 Hydrocortisone/Oatmeal/Aloe/E [Hydrocortisone 1% Cream] 1 applic TOP SUMOTUWETHFR@1000 01/17/17 Hydrocortisone/Oatmeal/Aloe/E [Hydrocortisone 1% Cream] 1 applic TOP SUMOTUWETHFR@209901/17/17 Levothyroxine Sodium [Synthroid] 175 mcg PO ACBRKFST 01/17/17 Mineral Oil/Hydrophil Petrolat [Aquaphor Ointment] 1 applic TOP DAILY 01/17/17 Polyethylene Glycol 3350 [Miralax Powder 17 gm/Packet] 17 gm PO DAILY 01/17/17 Risperidone [Risperdal] 0.5 mg PO BIDP PRN 01/17/17 Sertraline HCl [Zoloft 50 mg Tablet] 50 mg PO QAM 01/17/17 Tacrolimus [Protopic] 1 applic TOP BID 01/17/17 Ampicillin Trihydrate [Princepen 500 mg Capsule] 500 mg PO Q6 #28 capsule History of Present Illness Admission Date/PCP: 01/17/17 03:36 Patient complains of: Altered mental status History of Present Illness: ZAMZAM BIANCHI is a 76 year old female with a past medical history of vascular dementia, hypertension, CVA, and diabetes who is a long[facility]term [facility] resident with left-sided contractures and poorly verbal who is found by staff at the [facility] to refuse p.o. medications and diet and subsequently transferred to the emergency room for evaluation where she is found to have leukocytosis hyperkalemia and it urinalysis suggestive of urinary tract infection. Her CODE STATUS is verified by family to be DNR though understand restraints are required for NG tube and IV treatment. Is unable to provide history appearing chronically ill with cachexia and temporal wasting. Hospital Course Hospital Course: Patient was admitted for altered mental status. She has end-stage dementia and resides at a dementia care facility. She was found to have urinary tract infection with culture growing group B Streptococcus species. She has been transitioned to oral ampicillin for this infection. Her mental status is at baseline. At baseline she is basically nonverbal for the most part. She has poor oral intake. She is taking oral medications inconsistently and therefore medication regimen has been significantly reduced. I think regarding patient's advanced dementia further discussions need to be held between primary care provider and family regarding end-of-life/palliative care. Patient is currently a DO NOT RESUSCITATE status. Physical Exam Vital Signs: Temp Pulse Resp BP Pulse Ox 97.6 F 60 17 146/43 H 98 01/19/17 08:24 01/19/17 08:24 01/19/17 08:24 01/19/17 08:24 01/19/17 08:24 Intake & Output 01/18/17 01/19/17 01/20/17 06:59 06:59 06:59 Intake Total 7395 3750 Balance 4276 3750 Weight 58.1 kg 56.8 kg GENERAL: No acute distress HEENT: Conjunctiva clear, nonicteric, moist mucous membranes, no JVD, midline trachea RESPIRATORY: Clear to auscultation bilaterally, no wheezes, no rhonchi CARDIAC: Regular rate and rhythm, no murmurs/gallops/rubs ABDOMEN: Soft, nondistended, nontender, positive bowel sounds, no rebound, no guarding EXTREMETIES: No edema, cyanosis, clubbing NEUROLOGIC: Sleeping, nonverbal SKIN: Diffuse rash Results Laboratory Results: 01/18/17 04:13 01/18/17 04:13 01/18/17 06:15 MRSA Surveillance Culture - Preliminary Nasophary (Mrsa Only) 01/17/17 00:34 Blood Culture - Preliminary Blood NO GROWTH AFTER 48 HOURS 01/16/17 23:35 Urine Culture - Final Catheterized Urine Group B Beta Streptococcus 01/16/17 23:35 Blood Culture - Preliminary Blood NO GROWTH AFTER 48 HOURS Impressions: Head CT 01/16/17 23:05 IMPRESSION: STABLE CT APPEARANCE OF THE BRAIN, DEMONSTRATING CHRONIC CHANGES OF ATROPHY AND MICROVASCULAR ISCHEMIA. NO ACUTE PROCESS. KUB X-Ray 01/17/17 05:17 IMPRESSION: NO RADIOGRAPHIC EVIDENCE FOR ACUTE ABDOMINAL DISEASE. Chest X-Ray 01/17/17 14:00 IMPRESSION: NO ACUTE RADIOGRAPHIC FINDING IN THE CHEST. Transfer Plan - Time Spent with Patient Time spent with patient: Greater than 30 Minutes
[2017-01-19 21:11] VITALS: BP 133/55
[2017-01-22] MEDS ORDERED: CALCIPOTRIENE TOP SCH (10:00)
== END 2017-01-19 20:20 | DRG 871 ==
LOC: ER 22:50 → EH 01-17 03:36 → UNDOADMIN 01-17 03:38 → EH 01-17 03:38 → 4N 01-17 05:43
PROVIDERS: ADMIT Internal Medicine; ATTEND Internal Medicine
PROC: 0DH67UZ Insertion of Feeding Device into Stomach, Via Natural or Artificial Opening (ICD-10-PCS; principal; 2017-01-17)
PROC: 3E0F73Z Introduction of Anti-inflammatory into Respiratory Tract, Via Natural or Artificial Opening (ICD-10-PCS; 2017-01-17)
DX: A40.1 Sepsis due to streptococcus, group B (principal); G93.41 Metabolic encephalopathy; N18.6 End stage renal disease; N39.0 Urinary tract infection, site not specified; R64 Cachexia; I69.354 Hemiplegia and hemiparesis following cerebral infarction affecting left non-dominant side; I12.0 Hypertensive chronic kidney disease with stage 5 chronic kidney disease or end stage renal disease; F01.50 Vascular dementia, unspecified severity, without behavioral disturbance, psychotic disturbance, mood disturbance, and anxiety; I25.2 Old myocardial infarction; E87.5 Hyperkalemia; Z66 Do not resuscitate; E78.5 Hyperlipidemia, unspecified; M24.50 Contracture, unspecified joint; M19.90 Unspecified osteoarthritis, unspecified site; E11.22 Type 2 diabetes mellitus with diabetic chronic kidney disease; I70.90 Unspecified atherosclerosis; E03.9 Hypothyroidism, unspecified; F31.9 Bipolar disorder, unspecified; Z95.0 Presence of cardiac pacemaker; Z79.899 Other long term (current) drug therapy; Z78.1 Physical restraint status; Z79.4 Long term (current) use of insulin; Z88.6 Allergy status to analgesic agent; Z68.24 Body mass index [BMI] 24.0-24.9, adult
CPT/HCPCS: 36415; 70450; 71010; 74000; 80048; 80053; 80164; 80307; 81001; 82962; 83036; 83735; 85025; 87040; 87086; 87088; 96361; 96365; 99285; J0696; J1644; J2060; J3360; J3490; J7030; S0028

== ENCOUNTER 2017-02-08 19:20 | Emergency (ER) | payer MEDICARE, MEDICAID ==
--- NOTE | 2017-02-08 19:34 | ER Document Report ---
ED Fall - General Stated Complaint: FALL, SHOULDER PAIN Time Seen by Provider: 02/08/17 19:26 Mode of Arrival: Medic Information source: Patient, Emergency Med Personnel, [facility] Records Cannot obtain history due to: Dementia Notes: 76-year-old female patient from the [facility] found on the floor beside her wheelchair , unwitnessed fall. She was laying on her left side. She has complained of left shoulder pain. She is known to suffer frequent falls. She does suffer from multi-infarct dementia, insulin diabetes, coronary artery disease with cardiomyopathy and prior ID, hyperlipidemia and hypertension. She has chronic renal insufficiency. Depression and bipolar disorder. At this time she is alert, does complain of pain to her left shoulder. TRAVEL OUTSIDE OF THE [place] IN LAST 30 DAYS: No - Related data Allergies/Adverse Reactions: codeine [Codeine] Allergy (Mild, Verified 03/30/14 01:51) Past Medical History - General Information source: Patient, Emergency Med Personnel, [facility] Records Cannot obtain history due to: Dementia - Social History Smoking Status: Unknown if Ever Smoked Cigarette use (# per day): No Chew tobacco use (# tins/day): No Smoking Education Provided: No Frequency of alcohol use: None Drug Abuse: None Lives with: Long-Term Family History: Other - Unobtainable - Past Medical History Cardiac Medical History: Reports: Hx Coronary Artery Disease, Hx Heart Attack, Hx Hypercholesterolemia, Hx Hypertension, Other - Cardiomyopathy Pulmonary Medical History: Reports: None EENT Medical History: Reports: None Neurological Medical History: Reports: Hx Cerebrovascular Accident - Multiple infarcts Endocrine Medical History: Reports: Hx Diabetes Mellitus Type 2, Hx Hypothyroidism Renal/ Medical History: Reports: Hx Renal Insufficiency GI Medical History: Reports: None Musculoskeltal Medical History: Reports Hx Arthritis Skin Medical History: Reports Hx Psoriasis Psychiatric Medical History: Reports: Hx Bipolar Disorder, Hx Dementia - Multi- infarct dementia, Hx Depression Past Surgical History: Reports: Hx Pacemaker - Immunizations Hx Diphtheria, Pertussis, Tetanus Vaccination: Yes Hx Pneumococcal Vaccination: 08/23/13 Review of Systems - Review of Systems Constitutional: Weakness EENT: No symptoms reported Cardiovascular: No symptoms reported Respiratory: No symptoms reported Gastrointestinal: No symptoms reported Genitourinary: No symptoms reported Female Genitourinary: Post menopausal Musculoskeletal: Joint pain, Other - Left upper extremity contractures Skin: Rash - Psoriasis Neurological/Psychological: Dementia, Loss of power Physical Exam - Vital signs Vitals: Temp Pulse Resp BP Pulse Ox 98.4 F 59 L 18 148/60 H 96 02/08/17 19:49 02/08/17 19:49 02/08/17 19:49 02/08/17 19:49 02/08/17 19:49 Interpretation: Normal - General General appearance: Appears well, Alert In distress: None - HEENT Head: Normocephalic, Atraumatic Eyes: Normal Pupils: PERRL Neck: Other - The patient reports tenderness on posterior cervical palpation. She is able to rotate her head to the right and to the left. She is able to flex her neck and complains of pain but she localizes that pain to the shoulder when she flexes her neck. - Respiratory Respiratory status: No respiratory distress Breath sounds: Normal - Cardiovascular Rhythm: Regular - Abdominal Inspection: Normal Distension: No distension Bowel sounds: Normal Tenderness: Nontender - Back Back: Other - Kyphosis - Extremities General upper extremity: Other - Contractures in the fingers hand wrist and elbow of the left upper extremity General lower extremity: Other - Left hip is internally rotated with the knees partially flexed and leg maintained crossing underneath the right leg. It is possible to uncross the legs and externally rotate the hip to place the thigh in neutral position, but this does meet some resistance due to chronic contracture. Shoulder: Tender - Left shoulder is tender and there is palpable crepitance. Calf: Other - A wound bandaged on the anterior tibial surface of the right leg - Neurological Neuro grossly intact: Yes - except for weakness and contractures of the left side [place] Coma Scale Verbal: Oriented - Oriented to person and place - Psychological Associated symptoms: Normal affect, Normal mood - Skin Skin Temperature: Warm Skin Moisture: Dry Skin Color: Normal Skin irregularity: other - Psoriasis lesions seen on the extremities Course - Vital Signs Vital signs: Temp Pulse Resp BP Pulse Ox 98.4 F 59 L 18 148/60 H 96 02/08/17 19:49 02/08/17 19:49 02/08/17 19:49 02/08/17 19:49 02/08/17 19:49 - Laboratory Result Diagrams: 02/08/17 20:04 02/08/17 20:04 Laboratory results interpreted by me: 02/08/17 02/08/17 02/08/17 19:47 20:04 20:04 Hgb 11.8 L Hct 35.7 L RDW 14.5 H Est GFR (Non-Af Amer) 58 L Glucose 160 H Urine Blood SMALL H - Diagnostic Test Radiology reviewed: Image reviewed, Reports reviewed - X-ray of the left shoulder shows an old healed proximal humeral neck fracture which is healed at a very abnormal angle. Appears to be an acute inferior subluxation of the glenohumeral relationship. Discharge - Discharge Clinical Impression: Fall Qualifiers: Encounter type: initial encounter Qualified Code(s): W19.XXXA - Unspecified fall, initial encounter Subluxation of left shoulder joint Qualifiers: Encounter type: initial encounter Qualified Code(s): S43.002A - Unspecified subluxation of left shoulder joint, initial encounter Condition: Stable Disposition: HOME, SELF-CARE Additional Instructions: Your left shoulder was injured when you fell. It was not refractured. The x- ray appears to have subluxed the shoulder joint which is similar to a dislocation but it did not completely come out of the socket. You were given a sling to wear to protect the shoulder joint from movement. You should follow-up with your doctor or a local orthopedic doctor this week for recheck. RETURN TO THE EMERGENCY ROOM IF ANY NEW OR WORSENING SYMPTOMS.
[2017-02-08 19:52] VITALS: BP 148/60
[2017-02-08 20:07] LABS: APPEARANCE,URINE CLEAR; BILIRUBIN,URINE NEGATIVE (NEGATIVE); GLUCOSE, URINE NEGATIVE (NEGATIVE); KETONES,URINE NEGATIVE (NEGATIVE); LEUKOCYTE ESTERASE,URINE NEGATIVE (NEGATIVE); NITRITE,URINE NEGATIVE (NEGATIVE); PROTEIN,URINE NEGATIVE (NEGATIVE); URINE SPECIFIC GRAVITY 1.014; UROBILINOGEN,URINE NEGATIVE mg/dL (<2.0)
[2017-02-08 20:21] LABS: ABSOLUTE EOSINOPHILS # (AUTO) 0.2 10^3/uL (0.0-0.6); ABSOLUTE LYMPHOCYTES (AUTO) 3.3 10^3/uL (0.5-4.7); ABSOLUTE MONOCYTES (AUTO) 0.5 10^3/uL (0.1-1.4); ABSOLUTE NEUT (AUTO) 4.2 10^3/uL (1.7-8.2); BASOPHILS % (AUTO) 0.4 % (0-2); EOSINOPHILS % (AUTO) 2.8 % (0-6); HEMATOCRIT 35.7 % (36.0-47.0); HEMOGLOBIN 11.8 g/dL (12.0-15.5); HGB HCT DIFFERENCE -0.3; LYMPHOCYTES % (AUTO) 40.2 % (13-45); MEAN CORPUSCULAR HEMOGLOBIN 31.2 pg (27.0-33.4); MEAN CORPUSCULAR HGB CONC 33.1 g/dL (32.0-36.0); MEAN CORPUSCULAR VOLUME 95 fl (80-97); MONOCYTES % (AUTO) 6.1 % (3-13); RED BLOOD COUNT 3.78 10^6/uL (3.72-5.28); RED CELL DISTRIBUTION WIDTH 14.5 % (11.5-14.0); SEGMENTED NEUTROPHILS % (AUTO) 50.5 % (42-78); WHITE BLOOD COUNT 8.2 10^3/uL (4.0-10.5)
[2017-02-08 20:35] LABS: ALANINE AMINOTRANSFERASE 31 U/L (9-52); ALBUMIN 3.8 g/dL (3.5-5.0); ALKALINE PHOSPHATASE 64 U/L (38-126); ANION GAP 11 (5-19); ASPARTATE AMINO TRANSFERASE 28 U/L (14-36); BILIRUBIN,DIRECT 0.3 mg/dL (0.0-0.4); BILIRUBIN,TOTAL 0.3 mg/dL (0.2-1.3); BLOOD UREA NITROGEN 19 mg/dL (7-20); CALCIUM 9.3 mg/dL (8.4-10.2); CARBON DIOXIDE 25 mmol/L (22-30); CHLORIDE 103 mmol/L (98-107); CREATININE RESULT 0.94 mg/dL (0.52-1.25); GLUCOSE 160 mg/dL (75-110); POTASSIUM 4.5 mmol/L (3.6-5.0); SODIUM 139.3 mmol/L (137-145); TOTAL PROTEIN 7.1 g/dL (6.3-8.2)
--- NOTE | 2017-02-08 20:42 | RADIOLOGY REPORT (SQ) ---
EXAM DESCRIPTION: SHOULDER LEFT 2 OR MORE VIEWS COMPLETED DATE/TIME: 02/08/2017 8:29 pm REASON FOR STUDY: fall, shoulder pain COMPARISON: 05/06/2015 NUMBER OF VIEWS: Three views. TECHNIQUE: Internal rotation, external rotation, and Y view images acquired of the left shoulder. LIMITATIONS: None. FINDINGS: MINERALIZATION: Osteopenia. BONES: Mild inferior subluxation of the glenohumeral relationship. Old healed proximal humerus fract ure appears stable. No acute fracture. No worrisome bone lesions. JOINTS: No dislocation. VISUALIZED LUNGS AND RIBS: No pneumothorax. No rib fracture. SOFT TISSUES: No radiopaque foreign body. OTHER: No other significant finding. IMPRESSION: Mild inferior subluxation of the glenohumeral relationship. Old healed proximal humerus fracture appears stable. No acute fracture. TECHNICAL DOCUMENTATION: JOB ID: [id number] [employer]- All Rights Reserved
--- NOTE | 2017-02-08 22:15 | RADIOLOGY REPORT (SQ) ---
EXAM DESCRIPTION: CT CERVICAL SPINE WITHOUT COMPLETED DATE/TIME: 02/08/2017 10:01 pm REASON FOR STUDY: fall, neck pain COMPARISON: 03/30/2014 TECHNIQUE: Axial images acquired through the cervical spine without intravenous contrast. Images re viewed with lung, soft tissue and bone windows. Reconstructed coronal and sagittal MPR images review ed. Images stored on PACS. All CT scanners at this facility use dose modulation, iterative reconstruction, and/or weight based d osing when appropriate to reduce radiation dose to as low as reasonably achievable (ALARA). [facility]: Dose Right [facility]: CareDose [facility]: Dose Right [facility]: Teradose 4D [facility]: Smart E-Sign RADIATION DOSE: Up-to-date CT equipment and radiation dose reduction techniques were employed. CTDIv ol: 14.2 mGy. DLP: 267 mGy-cm. mGy. LIMITATIONS: None. FINDINGS: ALIGNMENT: Anatomic. MINERALIZATION: Normal. VERTEBRAL BODIES: No fractures or dislocation. DISCS: Multilevel disc space narrowing with osteophytes. FACETS, LATERAL MASSES, POSTERIOR ELEMENTS: Facet arthropathy. No fractures. No dislocation. No ac phan findings. HARDWARE: None in the spine. VISUALIZED RIBS: No fractures. LUNG APICES AND SOFT TISSUES: No significant or acute findings. OTHER: No other significant finding. IMPRESSION: CHRONIC DEGENERATIVE CHANGES. NO ACUTE FINDINGS. TECHNICAL DOCUMENTATION: JOB ID: [id number] Quality ID # [id number]: Final reports with documentation of one or more dose reduction techniques (e.g., Au tomated exposure control, adjustment of the mA and/or kV according to patient size, use of iterative reconstruction technique) 2010 [employer]- All Rights Reserved
== END 2017-02-08 22:50 | disposition home or self-care (01) ==
LOC: ER 19:20
DX: S43.002A Unspecified subluxation of left shoulder joint, initial encounter (principal); M25.512 Pain in left shoulder; W19.XXXA Unspecified fall, initial encounter
CPT/HCPCS: 36415; 72125; 80053; 81001; 85025; 99284

== ENCOUNTER 2017-02-12 14:12 | Emergency (ER) | payer MEDICARE, MEDICAID ==
--- NOTE | 2017-02-12 14:59 | ER Document Report ---
HPI - HPI Patient complains to provider of: sent to ed via ems by [facility] staff. Yelling no fall reported, fall last week Onset: Last week Onset/Duration: Intermittent Quality of pain: Other - pain with movement of left arm Associated Symptoms: None Exacerbated by: Movement Relieved by: Denies Similar symptoms previously: Yes Recently seen / treated by doctor: Yes - ROS ROS below otherwise negative: Yes - CONSTITUTIONAL Constitutional: DENIES: Fever, Chills - EENT EENT: DENIES: Sore Throat, Ear Pain, Nasal Drainage-Clear, Nasal Drainage- Purulent, Congestion, Eye problems - NEURO Neurology: DENIES: Headache, Weakness, Vision blurred, Dizzinesss / Vertigo - CARDIOVASCULAR Cardiovascular: DENIES: Chest pain - RESPIRATORY Respiratory: DENIES: Trouble Breathing, Coughing - GASTROINTESTINAL Gastrointestinal: DENIES: Abdominal Pain, Nausea, Patient vomiting, Diarrhea, Constipation, Black / Bloody Stools - URINARY Urinary: DENIES: Dysuria, Urgency, Frequency - REPRODUCTIVE Reproductive: DENIES: :, Postmenopausal, Abnormal bleeding / discharge - MUSCULOSKELETAL Musculoskeletal: REPORTS: Extremity pain - left upper arm. DENIES: Back Pain, Neck Pain, Swelling - DERM Skin Color: Normal Skin Problems: None Past Medical History - General Information source: Emergency Med Personnel, [facility] Records, Outside Facility Records Cannot obtain history due to: Dementia - Social History Smoking Status: Never Smoker Cigarette use (# per day): No Chew tobacco use (# tins/day): No Smoking Education Provided: No Frequency of alcohol use: None Drug Abuse: None Lives with: Group Home Family History: Other - Unobtainable - Past Medical History Cardiac Medical History: Reports: Hx Coronary Artery Disease, Hx Heart Attack, Hx Hypercholesterolemia, Hx Hypertension Pulmonary Medical History: Reports: None EENT Medical History: Reports: None Neurological Medical History: Reports: Hx Cerebrovascular Accident - Multiple infarcts Endocrine Medical History: Reports: Hx Diabetes Mellitus Type 2, Hx Hypothyroidism Renal/ Medical History: Reports: Hx End Stage Renal Disease - CRF, Hx Renal Insufficiency Malignancy Medical History: Reports: None GI Medical History: Reports: None Musculoskeltal Medical History: Reports Hx Arthritis Skin Medical History: Reports Hx Psoriasis Psychiatric Medical History: Reports: Hx Bipolar Disorder, Hx Dementia - Multi- infarct dementia, Hx Depression Past Surgical History: Reports: Hx Cardiac Surgery - pacemaker, Hx Pacemaker - Immunizations Hx Diphtheria, Pertussis, Tetanus Vaccination: Yes Hx Pneumococcal Vaccination: 08/23/13 Vertical Provider Document - CONSTITUTIONAL Agree With Documented VS: Yes Exam Limitations: No Limitations - INFECTION CONTROL TRAVEL OUTSIDE OF THE [place] IN LAST 30 DAYS: No - HEENT HEENT: Atraumatic, Normal ENT Exam, Normocephalic - RESPIRATORY Respiratory: Breath Sounds Normal, No Respiratory Distress, Chest Non-Tender - CARDIOVASCULAR Cardiovascular: Regular Rate - GI/ABDOMEN Gastrointestinal: Abdomen Soft, Abdomen Non-Tender, No Organomegaly, Normal Bowel Sounds - MUSCULOSKELETAL/EXTREMETIES Notes: Contracted arm and hand on the left side. She has a sling along from a old fracture. She was seen here last week for a fall with injury to this arm. - NEURO Level of Consciousness: Awake, Alert, Confused, Agitated - DERM Integumentary: negative: Laceration - skin tear to left leg Course - Vital Signs Vital signs: Temp Pulse Resp BP Pulse Ox 98.6 F 60 16 173/50 H 02/12/17 14:23 02/12/17 14:23 02/12/17 14:23 02/12/17 14:23 Discharge - Discharge Clinical Impression: Left shoulder pain Qualifiers: Chronicity: chronic Qualified Code(s): M25.512 - Pain in left shoulder Condition: Stable [facility]position[facility] Additional Instructions: Continue all current medications and treatments. Can follow-up with her primary doctor Wednesday or Wednesday. Acetaminophen Acetaminophen may be taken for pain relief or fever control. It's much safer than aspirin, offering a wider range of "safe" dosages. It is safe during . Some brand names are Tylenol, Panadol, Datril, Anacin 3, Tempra, and Liquiprin. Acetaminophen can be repeated every four hours. The following are maximum recommended dosages: WEIGHT Dose Drops Elixir Chewable( 80mg) (LBS.) drprs=droppers tsp=teaspoon 6 40 mg .4 ml (1/2) 6-11 80 mg .8 ml (full) 1/2 tsp 1 tab 12-16 120 mg 1 1/2 drprs 3/4 tsp 1 1/2 tabs 17-23 160 mg 2 drprs 1 tsp 2 tabs 24-30 240 mg 3 drprs 1 1/2 tsp 3 tabs 30-35 320 mg 2 tsp 4 tabs 36-41 360 mg 2 1/4 tsp 4 1 /2 tabs 42-47 400 mg 2 1/2 tsp 5 tabs 48-53 480 mg 3 tsp 6 tabs 54-59 520 mg 3 1/4 tsp 6 1 /2 tabs 60-64 560 mg 3 1/2 tsp 7 tabs 65-70 600 mg 3 3/4 tsp 7 1 /2 tabs 71-76 640 mg 4 tsp 8 tabs 77-82 720 mg 4 1/2 tsp 9 tabs 83-88 800 mg 5 tsp 10 tabs >89 pounds or adults 650 mg to 900 mg Acetaminophen can be repeated every four hours. Maximum daily dose not to exceed 4000 mg. These maximum recommended dosages are slightly higher than the dosages written on the product container, but these dosages are very safe and well below the toxic dosage for acetaminophen. FOLLOW-UP CARE: If you have been referred to a physician for follow-up care, call the physician s office for an appointment as you were instructed or within the next two days. If you experience worsening or a significant change in your symptoms, notify the physician immediately or return to the Emergency Department at any time for re-evaluation. Forms: Elevated Blood Pressure
--- NOTE | 2017-02-12 16:09 | RADIOLOGY REPORT (SQ) ---
EXAM DESCRIPTION: SHOULDER LEFT 2 OR MORE VIEWS COMPLETED DATE/TIME: 02/12/2017 3:54 pm REASON FOR STUDY: pain COMPARISON: Left humerus film 03/27/2014, left shoulder films 04/26/2015 NUMBER OF VIEWS: Three views. TECHNIQUE: Internal rotation, external rotation, and Y view images acquired of the left shoulder. LIMITATIONS: Limited patient positioning FINDINGS: MINERALIZATION: Osteoporotic BONES: Chronic healed fracture of the left proximal humeral metaphysis with valgus angulation at the fracture site. JOINTS: Advanced osteoarthritis at the left glenohumeral joint. No gross dislocation. Acromioclavic ular joint intact. VISUALIZED LUNGS AND RIBS: No pneumothorax. No rib fracture. SOFT TISSUES: Left-sided pacemaker OTHER: No other significant finding. IMPRESSION: Old healed fracture of the left proximal humeral metaphysis. No acute re-injury. Advanced osteoarthritis at the glenohumeral joint TECHNICAL DOCUMENTATION: JOB ID: [id number] [employer]- All Rights Reserved
[2017-02-12 17:05] VITALS: BP 140/51
== END 2017-02-12 17:32 ==
LOC: ER 14:12
DX: M25.512 Pain in left shoulder (principal); Z91.81 History of falling; I25.10 Atherosclerotic heart disease of native coronary artery without angina pectoris; E78.00 Pure hypercholesterolemia, unspecified; E03.9 Hypothyroidism, unspecified; E11.22 Type 2 diabetes mellitus with diabetic chronic kidney disease; I12.0 Hypertensive chronic kidney disease with stage 5 chronic kidney disease or end stage renal disease; N18.6 End stage renal disease; Z86.73 Personal history of transient ischemic attack (TIA), and cerebral infarction without residual deficits; Z95.0 Presence of cardiac pacemaker; I25.2 Old myocardial infarction
CPT/HCPCS: 99284

== ENCOUNTER 2017-07-18 08:14 | Inpatient (IN) | payer MEDICARE, MEDICAID ==
[2017-07-18 08:45] LABS: VENOUS BLOOD BASE EXCESS 1.8 mmol/L; VENOUS BLOOD HCO3 25.8 mmol/L (20-32); VENOUS BLOOD PCO2 38.3 mmHg (35-63); VENOUS BLOOD PH 7.45 (7.30-7.42)
[2017-07-18 08:46] LABS: ABSOLUTE EOSINOPHILS # (AUTO) 0.2 10^3/uL (0.0-0.6); ABSOLUTE LYMPHOCYTES (AUTO) 2.2 10^3/uL (0.5-4.7); ABSOLUTE MONOCYTES (AUTO) 0.5 10^3/uL (0.1-1.4); ABSOLUTE NEUT (AUTO) 3.6 10^3/uL (1.7-8.2); BASOPHILS % (AUTO) 0.6 % (0-2); EOSINOPHILS % (AUTO) 2.4 % (0-6); HEMATOCRIT 30.8 % (36.0-47.0); HEMOGLOBIN 10.2 g/dL (12.0-15.5); HGB HCT DIFFERENCE -0.2; LYMPHOCYTES % (AUTO) 33.7 % (13-45); MEAN CORPUSCULAR HEMOGLOBIN 31.2 pg (27.0-33.4); MEAN CORPUSCULAR HGB CONC 33.1 g/dL (32.0-36.0); MEAN CORPUSCULAR VOLUME 94 fl (80-97); RED BLOOD COUNT 3.27 10^6/uL (3.72-5.28); RED CELL DISTRIBUTION WIDTH 15.3 % (11.5-14.0); SEGMENTED NEUTROPHILS % (AUTO) 55.3 % (42-78); WHITE BLOOD COUNT 6.4 10^3/uL (4.0-10.5)
[2017-07-18 08:49] LABS: PROTHROMBIN TIME 14.8 SEC (11.4-15.4)
--- NOTE | 2017-07-18 08:54 | ER Document Report ---
ED Fever - General Stated Complaint: FEVER Time Seen by Provider: 07/18/17 08:35 Mode of Arrival: Medic Information source: Emergency Med Personnel TRAVEL OUTSIDE OF THE [place] IN LAST 30 DAYS: No - HPI Patient complains to provider of: fever, refusing meds Onset: This morning - Pt. is from [facility] and found to have fever this am of 101.2. Also was refusing to take her meds. 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 Pt is non-verbal - Related Data Allergies/Adverse Reactions: codeine [Codeine] Allergy (Mild, Verified 03/30/14 01:51) Past Medical History - General Information source: Emergency Med Personnel - Social History Smoking Status: Never Smoker Cigarette use (# per day): No Chew tobacco use (# tins/day): No Smoking Education Provided: No Family History: Other - Unobtainable - Past Medical History Cardiac Medical History: Reports: Hx Coronary Artery Disease, Hx Heart Attack, Hx Hypercholesterolemia, Hx Hypertension Neurological Medical History: Reports: Hx Cerebrovascular Accident - Multiple infarcts Endocrine Medical History: Reports: Hx Diabetes Mellitus Type 2, Hx Hypothyroidism Renal/ Medical History: Reports: Hx End Stage Renal Disease - CRF, Hx Renal Insufficiency Musculoskeltal Medical History: Reports Hx Arthritis Skin Medical History: Reports Hx Psoriasis Psychiatric Medical History: Reports: Hx Bipolar Disorder, Hx Dementia - Multi- infarct dementia, Hx Depression Past Surgical History: Reports: Hx Cardiac Surgery - pacemaker, Hx Pacemaker - Immunizations Hx Diphtheria, Pertussis, Tetanus Vaccination: Yes Hx Pneumococcal Vaccination: 08/23/13 Review of Systems - Review of Systems -: Yes ROS unobtainable due to patient's medical condition Physical Exam - General General appearance: Alert In distress: None - pt is non-verbal -- will only moan to painful stimuli - HEENT Head: Normocephalic Ears: Normal Tympanic membrane: Normal Sinus: Normal Mucous membranes: Normal Pharynx: Normal Neck: Normal - Respiratory Respiratory status: No respiratory distress Breath sounds: Normal - Cardiovascular Rhythm: Regular Heart sounds: Normal auscultation - Abdominal Inspection: Normal Bowel sounds: Normal Organomegaly: No organomegaly - Extremities General upper extremity: Normal inspection General lower extremity: Normal inspection - Neurological Neuro grossly intact: Yes - pt is alert and is seen to move all extremities Course - Laboratory Result Diagrams: 07/18/17 08:27 07/18/17 08:27
[2017-07-18 09:08] LABS: ALANINE AMINOTRANSFERASE 39 U/L (9-52); ALBUMIN 3.6 g/dL (3.5-5.0); ALKALINE PHOSPHATASE 52 U/L (38-126); ANION GAP 13 (5-19); ASPARTATE AMINO TRANSFERASE 29 U/L (14-36); BILIRUBIN,DIRECT 0.3 mg/dL (0.0-0.4); BILIRUBIN,TOTAL 0.5 mg/dL (0.2-1.3); BLOOD UREA NITROGEN 35 mg/dL (7-20); CALCIUM 9.5 mg/dL (8.4-10.2); CARBON DIOXIDE 24 mmol/L (22-30); CHLORIDE 109 mmol/L (98-107); CREATININE RESULT 1.37 mg/dL (0.52-1.25); GLUCOSE 111 mg/dL (75-110); POTASSIUM 4.6 mmol/L (3.6-5.0); SODIUM 145.6 mmol/L (137-145); TOTAL PROTEIN 6.6 g/dL (6.3-8.2)
[2017-07-18 09:09] LABS: APPEARANCE,URINE SLIGHTLY-CLOUDY; BILIRUBIN,URINE NEGATIVE (NEGATIVE); GLUCOSE, URINE NEGATIVE (NEGATIVE); KETONES,URINE NEGATIVE (NEGATIVE); LEUKOCYTE ESTERASE,URINE NEGATIVE (NEGATIVE); NITRITE,URINE NEGATIVE (NEGATIVE); PROTEIN,URINE NEGATIVE (NEGATIVE); URINE SPECIFIC GRAVITY 1.017; UROBILINOGEN,URINE NEGATIVE mg/dL (<2.0)
--- NOTE | 2017-07-18 09:55 | RADIOLOGY REPORT (SQ) ---
EXAM DESCRIPTION: CHEST PA/LAT COMPLETED DATE/TIME: 07/18/2017 9:17 am REASON FOR STUDY: fever, cough COMPARISON: Chest films 09/03/2014, 01/17/2017 EXAM PARAMETERS: NUMBER OF VIEWS: two views TECHNIQUE: Digital Frontal and Lateral radiographic views of the chest acquired. RADIATION DOSE: NA LIMITATIONS: none FINDINGS: LUNGS AND PLEURA: New right upper lobe airspace disease is present worrisome for pneumonia . No pleural effusion. No pneumothorax. MEDIASTINUM AND HILAR STRUCTURES: No masses or contour abnormalities. HEART AND VASCULAR STRUCTURES: Stable mild cardiomegaly BONES: Old healed left humeral head and left lateral rib fractures HARDWARE: Left-sided pacemaker OTHER: No other significant finding. IMPRESSION: Right upper lobe airspace disease worrisome for pneumonia TECHNICAL DOCUMENTATION: JOB ID: [id number] [employer]- All Rights Reserved
[2017-07-18] MEDS ORDERED: NORMAL SALINE 1000 ML 1,000 ML IV ONE (09:58)
[2017-07-18] MEDS ORDERED: LEVOFLOXACIN 750 MG/D5W RTU 750 MG/150 ML RTUPB IV ONE (09:58)
[2017-07-18] MEDS ORDERED: LEVALBUTEROL HCL NEB 1.25 MG/3 ML AMPUL NEB PRN (11:27)
[2017-07-18] MEDS ORDERED: GUAIFENESIN SYRP 200 MG/10 ML UDC PO PRN (11:27)
[2017-07-18] MEDS ORDERED: NORMAL SALINE 1000 ML 1,000 ML IV PRN (11:27)
[2017-07-18] MEDS ORDERED: CEFTRIAXONE 1 GM/D5W RTU 1 GM/50 ML RTUPB IV SCH (12:00)
[2017-07-18] MEDS ORDERED: PIPERACILLIN SODIUM/TAZOBACTAM 3.375 GM in NORMAL SALINE 100 ML IV SCH (12:00)
[2017-07-18] MEDS ORDERED: VANCOMYCIN HCL 0 MG in DEXTROSE 5%-WATER 250 ML IV NR (12:00)
--- NOTE | 2017-07-18 12:14 | PDOC H&P ---
History of Present Illness History of Present Illness: ZAMZAM BIANCHI is a 77 year old female with a past medical history significant for advanced dementia, left sided hemiparesis secondary to CVA, HTN, hyperlipidemia, CAD, DM2, hypothyroidism and psoriasis. She presents to the emergency department today via EMS from [facility] with a complaint of fever of 101, nonproductive cough, and decreased alertness from her baseline. Workup in the emergency department revealed grossly normal left, however, chest x-ray does demonstrate a right upper lobe pneumonia. Blood cultures were obtained and she was managed with IV fluids and provided IV Levaquin. She is referred to the hospitalist service for admission. Past Medical History Cardiac Medical History: Reports: Coronary Artery Disease, Myocardial Infarction , Hyperlipidema, Hypertension Endocrine Medical History: Reports: Diabetes Mellitus Type 2, Hypothyroidism Musculoskeltal Medical History: Reports: Arthritis Skin Medical History: Reports: Psoriasis Psychiatric Medical History: Reports: Bipolar Disorder, Dementia - Multi- infarct dementia, Depression Past Surgical History Past Surgical History: Reports: Pacemaker Social History Information Source: Emergency Med Personnel, [facility] Records Lives with: Custodial Smoking Status: Never Smoker Frequency of Alcohol Use: None Hx Recreational Drug Use: No Drugs: None Hx Prescription Drug Abuse: No - Advance Directive Resuscitation Status: Do Not Resuscitate Family History Family History: Other - Unobtainable 2/2 advanced dementia Parental Family History Reviewed: No Children Family History Reviewed: No Sibling(s) Family History Reviewed.: No Medication/Allergy Home Medications: Acetaminophen [Tylenol 325 mg Tablet] 650 mg PO TID 01/17/17 Aspirin/Dipyridamole [Aggrenox 25 mg-200 mg Capsule] 1 cap PO Q12 01/17/17 Betamet Diprop/Prop Gly [Betamethasone Dp Aug 0.05% Cream] 1 applic TOP BID Calcipotriene [Dovonex] 1 applic TOP MOTUWETHFR@99901/17/17 Calcipotriene [Dovonex] 1 applic TOP MOTUWETHFR@209901/17/17 Calcipotriene [Dovonex] 1 applic TOP SUFRSA@1000 01/17/17 Calcipotriene [Dovonex] 1 applic TOP SUFRSA@209901/17/17 Clobetasol Propionate [Temovate 0.05% Cream 15 gm] 1 applic TOP BID 01/17/17 Hydrocortisone/Oatmeal/Aloe/E [Hydrocortisone 1% Cream] 1 applic TOP SUMOTUWETHFR@1000 01/17/17 Hydrocortisone/Oatmeal/Aloe/E [Hydrocortisone 1% Cream] 1 applic TOP SUMOTUWETHFR@2100 01/17/17 Levothyroxine Sodium [Synthroid] 175 mcg PO ACBRKFST 01/17/17 Mineral Oil/Hydrophil Petrolat [Aquaphor Ointment] 1 applic TOP DAILY 01/17/17 Polyethylene Glycol 3350 [Miralax Powder 17 gm/Packet] 17 gm PO DAILY 01/17/17 Risperidone [Risperdal] 0.5 mg PO BIDP PRN 01/17/17 Sertraline HCl [Zoloft 50 mg Tablet] 50 mg PO QAM 01/17/17 Tacrolimus [Protopic] 1 applic TOP BID 01/17/17 Ampicillin Trihydrate [Princepen 500 mg Capsule] 500 mg PO Q6 #28 capsule Allergies/Adverse Reactions: codeine [Codeine] Allergy (Mild, Verified 03/30/14 01:51) Review of Systems ROS unobtainable: Due to mental status Physical Exam Vital Signs: Temp Pulse Resp BP Pulse Ox 98.7 F 50 L 14 122/56 L 94 07/18/17 08:58 07/18/17 08:35 07/18/17 10:00 07/18/17 08:48 07/18/17 10:00 Intake & Output 07/17/17 07/18/17 07/19/17 06:59 06:59 06:59 Weight 63.503 kg General appearance: PRESENT: no acute distress, thin, well-developed, well- nourished Head exam: PRESENT: atraumatic, normocephalic Eye exam: PRESENT: conjunctiva pink, EOMI, PERRLA. ABSENT: scleral icterus Ear exam: PRESENT: normal external ear exam Mouth exam: PRESENT: moist, tongue midline Teeth exam: PRESENT: poor dentation Neck exam: ABSENT: carotid bruit, JVD, lymphadenopathy, thyromegaly Respiratory exam: PRESENT: decreased breath sounds - Bibasilar, rhonchi, symmetrical, unlabored. ABSENT: rales, wheezes Cardiovascular exam: PRESENT: RRR, tachycardia. ABSENT: diastolic murmur, rubs , systolic murmur Pulses: PRESENT: normal dorsalis pedis pul Vascular exam: PRESENT: normal capillary refill GI/Abdominal exam: PRESENT: normal bowel sounds, soft. ABSENT: distended, guarding, mass, organolmegaly, rebound, tenderness Rectal exam: PRESENT: deferred Extremities exam: ABSENT: calf tenderness, clubbing, full ROM - Contracture noted to her left hand, lower extremity drawn up and resistant to passive range of motion, pedal edema Neurological exam: PRESENT: alert, awake, CN II-XII grossly intact - Does not participate in exam, aphasic. ABSENT: motor sensory deficit Psychiatric exam: PRESENT: appropriate affect, normal mood. ABSENT: homicidal ideation, suicidal ideation Skin exam: PRESENT: dry, intact, warm. ABSENT: cyanosis, rash Results Laboratory Results: 07/18/17 08:27 07/18/17 08:27 07/18/17 07/18/17 07/18/17 08:27 08:27 08:27 WBC 6.4 RBC 3.27 L Hgb 10.2 L Hct 30.8 L MCV 94 MCH 31.2 MCHC 33.1 RDW 15.3 H Plt Count 224 Seg Neutrophils % 55.3 Lymphocytes % 33.7 Monocytes % 8.0 Eosinophils % 2.4 Basophils % 0.6 Absolute Neutrophils 3.6 Absolute Lymphocytes 2.2 Absolute Monocytes 0.5 Absolute Eosinophils 0.2 Absolute Basophils 0.0 VBG pH VBG pCO2 VBG HCO3 VBG Base Excess Sodium 145.6 H Potassium 4.6 Chloride 109 H Carbon Dioxide 24 Anion Gap 13 BUN 35 H Creatinine 1.37 H Est GFR ( Amer) 45 L Est GFR (Non-Af Amer) 37 L Glucose 111 H Lactic Acid 0.7 Calcium 9.5 Total Bilirubin 0.5 AST 29 ALT 39 Alkaline Phosphatase 52 Total Protein 6.6 Albumin 3.6 Urine Color Urine Appearance Urine pH Ur Specific [place] Urine Protein Urine Glucose (UA) Urine Ketones Urine Blood Urine Nitrite Ur Leukocyte Esterase Urine WBC (Auto) Urine RBC (Auto) 07/18/17 07/18/17 08:27 08:45 WBC RBC Hgb Hct MCV MCH MCHC RDW Plt Count Seg Neutrophils % Lymphocytes % Monocytes % Eosinophils % Basophils % Absolute Neutrophils Absolute Lymphocytes Absolute Monocytes Absolute Eosinophils Absolute Basophils VBG pH 7.45 H VBG pCO2 38.3 VBG HCO3 25.8 VBG Base Excess 1.8 Sodium Potassium Chloride Carbon Dioxide Anion Gap BUN Creatinine Est GFR ( Amer) Est GFR (Non-Af Amer) Glucose Lactic Acid Calcium Total Bilirubin AST ALT Alkaline Phosphatase Total Protein Albumin Urine Color YELLOW Urine Appearance SLIGHTLY-CLOUDY Urine pH 6.0 Ur Specific [place] 1.017 Urine Protein NEGATIVE Urine Glucose (UA) NEGATIVE Urine Ketones NEGATIVE Urine Blood NEGATIVE Urine Nitrite NEGATIVE Ur Leukocyte Esterase NEGATIVE Urine WBC (Auto) 2 Urine RBC (Auto) 5 Impressions: Chest X-Ray 07/18/17 08:39 IMPRESSION: Right upper lobe airspace disease worrisome for pneumonia Assessment & Plan - Diagnosis (1) Right upper lobe pneumonia Is this a current diagnosis for this admission?: Yes Plan: Patient presented with decreased mental status from baseline, fever of greater than 101, and cough. Right upper lobe airspace disease concerning for pneumonia demonstrated on chest x-ray. We will admit to the medical floor for pneumonia. She will be empirically placed on antibiotics with coverage for MRSA as the patient is a long-term resident of a healthcare facility. Will narrow antibiotics as blood cultures results. Supportive care provided with supplemental oxygen as needed, scheduled duo nebs and Xopenex as needed, Tylenol for fever, and Mucinex. (2) Acute kidney injury (nontraumatic) Is this a current diagnosis for this admission?: Yes Plan: Likely secondary to dehydration in the setting of fever. Will rehydrate with IV fluids and monitor lab values. Pharmacy to dose vancomycin. (3) Hypernatremia Is this a current diagnosis for this admission?: Yes Plan: Likely some secondary to dehydration, will receive IV fluids and trend labs. (4) Anemia Is this a current diagnosis for this admission?: Yes Plan: Patient hemoglobin of 10.2, slightly down from previous lab in January 2017. There are no overt signs of bleeding. Will monitor. (5) Hemiparesis affecting left side as late effect of cerebrovascular accident Is this a current diagnosis for this admission?: Yes Plan: Left-sided hemiparesis from previous CVA. Patient is nonverbal at present. For safety, we will place on aspiration precautions with a pured diet and nectar thickened liquids pending evaluation by speech therapy. Her Aggrenox will be resumed once reconciled by pharmacy. (6) Hypothyroidism Is this a current diagnosis for this admission?: Yes Plan: We will continue Synthroid once reconciled by pharmacy. (7) Advanced dementia Is this a current diagnosis for this admission?: Yes Plan: We will continue Zoloft and risperidone once reconciled by pharmacy. - Time Time Spent: 50 to 70 Minutes Medications reviewed and adjusted accordingly: Yes Anticipated discharge: SNF - Inpatient Certification Based on my medical assessment, after consideration of the patient's comorbidities, presenting symptoms, or acuity I expect that the services needed warrant INPATIENT care.: Yes I certify that my determination is in accordance with my understanding of Medicare's requirements for reasonable and necessary INPATIENT services [42 CFR 412.3e].: Yes Medical Necessity: Need For IV Fluids, Need for IV Antibiotics
[2017-07-18] MEDS ORDERED: ENOXAPARIN SODIUM INJ 30 MG/0.3 ML DISP.SYRIN SUBCUT ONE (12:30)
[2017-07-18] MEDS: VANCOMYCIN HCL 500 MG in DEXTROSE 5%-WATER 100 ML IV SCH (13:13)
[2017-07-18] MEDS: PIPERACILLIN SODIUM/TAZOBACTAM 2.25 GM in NORMAL SALINE 50 ML IV SCH ×2 (15:48→23:29)
[2017-07-18] MEDS: IPRATROPIUM/ALBUTEROL 0.5-2.5 MG/3 ML AMPUL NEB SCH (16:20)
[2017-07-18] MEDS ORDERED: LORAZEPAM 0.5 MG TABLET PO PRN (19:29)
[2017-07-18] MEDS ORDERED: RISPERIDONE 0.5 MG TAB.RAPDIS ONE (22:36)
[2017-07-18] MEDS: CARVEDILOL 12.5 MG TABLET PO SCH (23:30)
[2017-07-18] MEDS: GUAIFENESIN 600 MG TABLET.SA PO SCH (23:30)
[2017-07-18] MEDS: ASPIRIN/DIPYRIDAMOLE 25-200 MG 1 CAP.SR CPMP.12HR PO SCH (23:30)
[2017-07-18] MEDS: ACETAMINOPHEN 325 MG TABLET PO PRN (23:31)
[2017-07-18] MEDS: RISPERIDONE 0.25 MG TABLET PO SCH (23:32)
[2017-07-19] MEDS: IPRATROPIUM/ALBUTEROL 0.5-2.5 MG/3 ML AMPUL NEB SCH ×4 (00:07→20:58)
[2017-07-19] MEDS: PIPERACILLIN SODIUM/TAZOBACTAM 2.25 GM in NORMAL SALINE 50 ML IV SCH ×4 (03:02→22:07)
[2017-07-19 05:54] LABS: ABSOLUTE EOSINOPHILS # (AUTO) 0.1 10^3/uL (0.0-0.6); ABSOLUTE LYMPHOCYTES (AUTO) 1.2 10^3/uL (0.5-4.7); ABSOLUTE MONOCYTES (AUTO) 0.6 10^3/uL (0.1-1.4); ABSOLUTE NEUT (AUTO) 5.4 10^3/uL (1.7-8.2); BASOPHILS % (AUTO) 0.5 % (0-2); EOSINOPHILS % (AUTO) 0.8 % (0-6); HEMATOCRIT 28.4 % (36.0-47.0); HEMOGLOBIN 9.6 g/dL (12.0-15.5); HGB HCT DIFFERENCE 0.4; MEAN CORPUSCULAR HEMOGLOBIN 31.8 pg (27.0-33.4); MEAN CORPUSCULAR HGB CONC 33.6 g/dL (32.0-36.0); MEAN CORPUSCULAR VOLUME 95 fl (80-97); MONOCYTES % (AUTO) 7.7 % (3-13); RED CELL DISTRIBUTION WIDTH 15.1 % (11.5-14.0); WHITE BLOOD COUNT 7.3 10^3/uL (4.0-10.5)
[2017-07-19] MEDS ORDERED: (PENDING PHARMACY ID) (Levothyroxine Sodium [Synthroid] 175 MCG) PO SCH (06:00)
--- NOTE | 2017-07-19 06:00 | EKG REPORT ---
SEVERITY:- ABNORMAL ECG - VENTRICULAR-PACED RHYTHM : Confirmed by: Maria Manrique MD 19-Jul-2017 05:59:56
[2017-07-19 06:15] LABS: ANION GAP 14 (5-19); BLOOD UREA NITROGEN 24 mg/dL (7-20); CALCIUM 8.6 mg/dL (8.4-10.2); CARBON DIOXIDE 20 mmol/L (22-30); CHLORIDE 111 mmol/L (98-107); CREATININE RESULT 1.16 mg/dL (0.52-1.25); GLUCOSE 162 mg/dL (75-110); POTASSIUM 4.6 mmol/L (3.6-5.0)
[2017-07-19] MEDS: LEVOTHYROXINE SODIUM 0.075 MG TABLET PO SCH (06:37)
[2017-07-19] MEDS: LEVOTHYROXINE SODIUM 0.1 MG TABLET PO SCH (06:37)
[2017-07-19] MEDS ORDERED: NORMAL SALINE 1000 ML 1,000 ML IV PRN (08:11)
[2017-07-19] MEDS ORDERED: INSULIN LISPRO 100 UNIT/ML 3 ML VIAL SUBCUT PRN (08:13)
[2017-07-19] MEDS ORDERED: DEXTROSE 40% GEL 15 GM TUBE PO PRN ×2 (08:13)
[2017-07-19] MEDS ORDERED: DEXTROSE 50%-WATER 25 GM/50 ML DISP.SYRIN IV PRN ×2 (08:13)
[2017-07-19] MEDS ORDERED: GLUCAGON,HUMAN RECOMB 1 MG INJ IM PRN (08:13)
[2017-07-19] MEDS ORDERED: ENOXAPARIN SODIUM INJ 30 MG/0.3 ML DISP.SYRIN SUBCUT SCH (10:00)
[2017-07-19] MEDS ORDERED: (PENDING PHARMACY ID) (Amlodipine Besylate/Valsartan [Amlodipine-Valsartan 10-320 Mg] 1 TA PO SCH (10:00)
[2017-07-19] MEDS ORDERED: (PENDING PHARMACY ID) (Calcium Carbonate [Calcium] 600 MG) PO SCH (10:00)
[2017-07-19] MEDS ORDERED: (PENDING PHARMACY ID) (Cyanocobalamin/Folic Ac/Vit B6 [Folbic Tablet] 1 TAB) PO SCH (10:00)
[2017-07-19] MEDS: POLYETHYLENE GLYCOL 3350 POWDER 17 GM/1 PACKET PO SCH (10:47)
[2017-07-19] MEDS: CARVEDILOL 12.5 MG TABLET PO SCH ×2 (10:47→22:10)
[2017-07-19] MEDS: RISPERIDONE 0.25 MG TABLET PO SCH ×2 (10:51→22:08)
[2017-07-19] MEDS: GLIMEPIRIDE 1 MG TABLET PO SCH (10:52)
[2017-07-19] MEDS: AMLODIPINE BESYLATE 10 MG TABLET PO SCH (10:52)
[2017-07-19] MEDS: CALCIUM CARBONATE 500 MG TABLET PO SCH ×2 (10:53→22:11)
[2017-07-19] MEDS: CYANOCOBALAMIN/FA/PYRIDOXINE TABLET PO SCH (10:53)
[2017-07-19] MEDS: GUAIFENESIN 600 MG TABLET.SA PO SCH ×2 (10:53→22:10)
[2017-07-19] MEDS: ASPIRIN/DIPYRIDAMOLE 25-200 MG 1 CAP.SR CPMP.12HR PO SCH ×2 (10:54→22:10)
[2017-07-19] MEDS: CETIRIZINE 10 MG TABLET PO SCH (10:54)
[2017-07-19] MEDS: MINERAL OIL/PETROLATUM,WHITE CREAM 114 GM TP SCH ×2 (10:56→17:38)
[2017-07-19] MEDS: VALSARTAN 160 MG TABLET PO SCH (10:58)
[2017-07-19] MEDS ORDERED: IPRATROPIUM/ALBUTEROL 0.5-2.5 MG/3 ML AMPUL NEB SCH (12:00)
--- NOTE | 2017-07-19 13:05 | PDOC PROGRESS REPORT ---
Subjective Progress Note for:: 07/19/17 Subjective:: Patient is seen on morning rounds for follow-up on pneumonia. Patient is resting in bed comfortably. She is awake and alert this morning. She is conversational and answers most questions appropriately but is noted to be globally confused. Baseline mental status is unknown, however, patient is a resident of a long-term care memory facility. She denies pain, difficulty breathing, chest pain but does not or is unable to answer further questions. She appears to be comfortable and in no acute distress. Physical Exam Vital Signs: Temp Pulse Resp BP Pulse Ox 97.3 F 52 L 20 147/50 H 98 07/19/17 11:49 07/19/17 11:49 07/19/17 11:49 07/19/17 11:49 07/19/17 11:49 Pulse Oximeter Continuous Start: 07/18/17 11: 27 Freq: RTQ4 Status: Active Document 07/19/17 11:33 [facility] (Rec: 07/19/17 11:34 [facility] [place] [email or web address]) Pulse Oximetry Assessment Oxygen Saturation (92-100) 98 Oxygen Delivery Method Room Air Fraction of Inspired Oxygen (FIO2) 21 Equipment Usage Equipment in Use Continuous SpO2 Machine # N 3 Intake & Output 07/18/17 07/19/17 07/20/17 06:59 06:59 06:59 Intake Total 1666 Output Total 115 Balance 1551 Weight 62.5 kg General appearance: PRESENT: no acute distress, well-developed, well-nourished, other - Overweight Head exam: PRESENT: atraumatic, normocephalic Eye exam: PRESENT: conjunctiva pink, EOMI, PERRLA. ABSENT: scleral icterus Ear exam: PRESENT: normal external ear exam Mouth exam: PRESENT: moist, tongue midline Teeth exam: PRESENT: edentulous Neck exam: ABSENT: carotid bruit, JVD, lymphadenopathy, thyromegaly Respiratory exam: PRESENT: crackles, decreased breath sounds - Bibasilar, though patient with poor participation in exam, rhonchi, symmetrical, unlabored. ABSENT: rales, wheezes Cardiovascular exam: PRESENT: RRR. ABSENT: diastolic murmur, rubs, systolic murmur Pulses: PRESENT: normal dorsalis pedis pul Vascular exam: PRESENT: normal capillary refill GI/Abdominal exam: PRESENT: normal bowel sounds, soft. ABSENT: distended, guarding, mass, organolmegaly, rebound, tenderness Rectal exam: PRESENT: deferred Extremities exam: PRESENT: full ROM. ABSENT: calf tenderness, clubbing, pedal edema Neurological exam: PRESENT: alert, awake, CN II-XII grossly intact, other - Pleasantly confused.. ABSENT: oriented to person, oriented to place, oriented to time, oriented to situation, motor sensory deficit Psychiatric exam: PRESENT: appropriate affect, normal mood. ABSENT: homicidal ideation, suicidal ideation Skin exam: PRESENT: dry, intact, warm. ABSENT: cyanosis, rash Results Laboratory Results: 07/19/17 04:54 07/19/17 04:54 07/19/17 07/19/17 04:54 04:54 WBC 7.3 RBC 3.00 L Hgb 9.6 L Hct 28.4 L MCV 95 MCH 31.8 MCHC 33.6 RDW 15.1 H Plt Count 171 Seg Neutrophils % 74.0 Lymphocytes % 17.0 Monocytes % 7.7 Eosinophils % 0.8 Basophils % 0.5 Absolute Neutrophils 5.4 Absolute Lymphocytes 1.2 Absolute Monocytes 0.6 Absolute Eosinophils 0.1 Absolute Basophils 0.0 Sodium 145.0 Potassium 4.6 Chloride 111 H Carbon Dioxide 20 L Anion Gap 14 BUN 24 H Creatinine 1.16 Est GFR ( Amer) 55 L Est GFR (Non-Af Amer) 45 L Glucose 162 H Calcium 8.6 Impressions: Chest X-Ray 07/18/17 08:39 IMPRESSION: Right upper lobe airspace disease worrisome for pneumonia Assessment & Plan - Diagnosis (1) Right upper lobe pneumonia Is this a current diagnosis for this admission?: Yes Plan: Patient presented with decreased mental status from baseline, fever of greater than 101, and cough. Right upper lobe airspace disease concerning for pneumonia demonstrated on chest x-ray. Fever overnight to 100.1. Maintaining oxygen saturations on room air. We will admit to the medical floor for pneumonia. She will be empirically placed on antibiotics with coverage for MRSA as the patient is a long-term resident of a healthcare facility. Will narrow antibiotics as blood cultures results. Supportive care provided with supplemental oxygen as needed, scheduled duo nebs and Xopenex as needed, Tylenol for fever, and Mucinex. Blood cultures: No growth 24 hours Urine culture: No growth 24 hours (2) Acute kidney injury (nontraumatic) Is this a current diagnosis for this admission?: Yes Plan: Improved (Creat 1.37-->1.16) Likely secondary to dehydration in the setting of fever. Will continue IV fluids and monitor lab values. Pharmacy to dose vancomycin. (3) Hypernatremia Is this a current diagnosis for this admission?: Yes Plan: Resolved. Likely was secondary to dehydration, will receive IV fluids and trend labs. (4) Anemia Is this a current diagnosis for this admission?: Yes Plan: Hemoglobin slightly down from previous labs in January 2017. Likely chronic anemia with some component of hemodilution as she is now receiving IVF. There are no overt signs of bleeding. Will monitor. (5) Hemiparesis affecting left side as late effect of cerebrovascular accident Is this a current diagnosis for this admission?: Yes Plan: Left-sided hemiparesis from previous CVA. Does have weak manager alliance to right hand. We will place on aspiration precautions with a pured diet . Was evaluated by ST today w/ recommendations for thin liquids and follow up MBSS tomorrow. Resume home dose Aggrenox. (6) Hypothyroidism Is this a current diagnosis for this admission?: Yes Plan: Resume home dose levothyroxine. (7) Advanced dementia Is this a current diagnosis for this admission?: Yes Plan: We will continue Zoloft and risperidone. - Time Time Spent with patient: 25-34 minutes Medications reviewed and adjusted accordingly: Yes Within: within 72 hours - Inpatient Certification Based on my medical assessment, after consideration of the patient's comorbidities, presenting symptoms, or acuity I expect that the services needed warrant INPATIENT care.: Yes I certify that my determination is in accordance with my understanding of Medicare's requirements for reasonable and necessary INPATIENT services [42 CFR 412.3e].: Yes Medical Necessity: Need for IV Antibiotics
[2017-07-19] MEDS: VANCOMYCIN HCL 500 MG in DEXTROSE 5%-WATER 100 ML IV SCH (13:28)
[2017-07-19] MEDS: DIVALPROEX SODIUM 125 MG CAP.SPRINK PO SCH (17:37)
[2017-07-19] MEDS: ACETAMINOPHEN 325 MG TABLET PO PRN (22:11)
[2017-07-20] MEDS: IPRATROPIUM/ALBUTEROL 0.5-2.5 MG/3 ML AMPUL NEB SCH ×4 (02:40→20:33)
[2017-07-20] MEDS: PIPERACILLIN SODIUM/TAZOBACTAM 2.25 GM in NORMAL SALINE 50 ML IV SCH ×4 (02:42→21:43)
[2017-07-20] MEDS: LEVOTHYROXINE SODIUM 0.075 MG TABLET PO SCH (06:06)
[2017-07-20] MEDS: LEVOTHYROXINE SODIUM 0.1 MG TABLET PO SCH (06:06)
[2017-07-20 06:44] LABS: HEMATOCRIT 27.1 % (36.0-47.0); HEMOGLOBIN 9.2 g/dL (12.0-15.5); HGB HCT DIFFERENCE 0.5; MEAN CORPUSCULAR HEMOGLOBIN 32.2 pg (27.0-33.4); MEAN CORPUSCULAR HGB CONC 34.1 g/dL (32.0-36.0); MEAN CORPUSCULAR VOLUME 94 fl (80-97); RED BLOOD COUNT 2.87 10^6/uL (3.72-5.28); RED CELL DISTRIBUTION WIDTH 15.3 % (11.5-14.0); WHITE BLOOD COUNT 7.6 10^3/uL (4.0-10.5)
[2017-07-20 07:12] LABS: ANION GAP 12 (5-19); BLOOD UREA NITROGEN 15 mg/dL (7-20); CALCIUM 8.5 mg/dL (8.4-10.2); CARBON DIOXIDE 21 mmol/L (22-30); CHLORIDE 115 mmol/L (98-107); CREATININE RESULT 1.07 mg/dL (0.52-1.25); GLUCOSE 124 mg/dL (75-110); POTASSIUM 4.1 mmol/L (3.6-5.0)
[2017-07-20] MEDS ORDERED: SERTRALINE HCL 50 MG TABLET PO SCH (10:00)
[2017-07-20] MEDS ORDERED: CARVEDILOL 12.5 MG TABLET PO SCH (11:27)
--- NOTE | 2017-07-20 11:27 | ST Inp Modified Barium Swallow ---
Medical Diagnosis - Medical Diagnoses Medical Diagnosis Description & ICD-10 Code(s): right upper lobe pneumonia ST Inpatient MBS - General Date: 07/20/17 - History History Obtained From: Other - EMR -: Medical - Per EMR: dementia, left side hemiparesis secondary to CVA, HTN, hyperlipidemia, CAD, DMII, hypothyroidism, psoriasis. Patient seen in her room yesterday for bedside dysphagia evaluation. Swallow apeared safe on multiple trials, however, rough breath sounds persisted, unable to establish consistent clear voicing. MBSS recommended to rule out aspiration. Medications: Medications Reviewed Allergies: Refer to medical record - Subjective Current Nutritional Means: PO Current PO Diet: Pureed - thin liquids Current Symptoms: Pneumonia Pain: no signs/symptoms of pain - Objective Assessment: Upright, Left Lateral - Food Trials Food Trials Used: Thin liquids - Attempted honey liquid and puree trials, patient did not accept these trials. The Patient: fed by ST, via straw - Assessment Labial Function: Within Normal Limits Lingual Function: Within Normal Limits Mandibular Function: Age appropriate Dentition: Edentulous Laryngeal Function: no volitional swallow, no volitional cough/clear - Pharyngeal Stage Initiation of Pharyngeal Stage: Delayed Decreased Laryngeal Elevation: No Reduced Velo-Pharyngeal Closure: no Reduced Pressure Generation: No Reduced Tongue Base Retraction: No Pre-Swallowing Pooling in Valleculae: Moderate Pre-Swallowing Pooling in Pyriforms: None Reduced Thyro-Hyiod Approximation: No Reduced Epiglottic Excursion: No Post Swallow Residuals in Valleculae: None Post Swallow Residuals in Pyriforms: None Pahryngeal Stage Comments: Patient awake and alert, however, reduced ability to follow commands. Few oral trials able to be given due to reduced acceptance by patient. Able to see swallow of thin liquid through straw, no aspiration/ penetration seen. - Impression/Summary Laryngeal Penetration: No Tracheal Aspiration: no Risk of Aspiration: Mild Risk of Nutritional Compromise: Mild - Recommendations Solid Diet Recommendations: Pureed Liquid Diet Recommendations: Thin Strict Aspitarion Precautions: Yes Dysphagia Therapy with REINFORCEMENT MAKER: No Recommended Techniques: Fully Upright During Meal, Med Crushed in Applesauce Supervision: requires assistance - Time Total Time: 20 Total Timed Minutes: 20 ST F.L. Impairment Category - Rationale Based On Rationale Based On: Func. Asses. Tool Results - Swallowing Current G8996: CJ 20-39% Impaired Goal G8997: CJ 20-39% Impaired Discharge G8998: CJ 20-39% Impaired Charge G Code? - - -: Yes
[2017-07-20] MEDS ORDERED: (PENDING PHARMACY ID) (Risperidone [Risperdal] 0.5 MG) PO PRN (11:28)
[2017-07-20] MEDS ORDERED: RISPERIDONE 1 MG TABLET PO PRN (11:47)
[2017-07-20] MEDS: VALSARTAN 160 MG TABLET PO SCH (12:14)
[2017-07-20] MEDS: RISPERIDONE 0.25 MG TABLET PO SCH ×2 (12:17→21:43)
[2017-07-20] MEDS: CETIRIZINE 10 MG TABLET PO SCH (12:18)
[2017-07-20] MEDS: AMLODIPINE BESYLATE 10 MG TABLET PO SCH (12:19)
[2017-07-20] MEDS: POLYETHYLENE GLYCOL 3350 POWDER 17 GM/1 PACKET PO SCH (12:19)
[2017-07-20] MEDS: ASPIRIN/DIPYRIDAMOLE 25-200 MG 1 CAP.SR CPMP.12HR PO SCH ×2 (12:20→21:44)
[2017-07-20] MEDS: CYANOCOBALAMIN/FA/PYRIDOXINE TABLET PO SCH (12:21)
[2017-07-20] MEDS: CALCIUM CARBONATE 500 MG TABLET PO SCH ×2 (12:22→21:45)
--- NOTE | 2017-07-20 12:23 | PROGRESS NOTE E ---
Progress Note NAME: ZAMZAM BIANCHI : 1940 AGE: 77Y DATE: 07/20/2017 ROOM: 423 SUBJECTIVE: The patient is currently lying in bed. The patient is not extremely responsive. She will wake up to a sternal rub. According to staff, this has been the patient's baseline since admission. The patient has had no reported episodes of vomiting nor diarrhea. The patient has been afebrile. Her blood pressure has been in a good range. Heart rate has been a little on the low side, and the patient is unable to voice any specific concerns at this time. REVIEW OF SYSTEMS: Rest of review of systems is negative. MEDICATIONS: Medications have been reviewed. OBJECTIVE: GENERAL: The patient is a 77-year-old female who is not extremely responsive. She does not appear to be in any acute distress. VITAL SIGNS: Temperature is 98.7, pulse 51, respirations 17, blood pressure 151/40, oxygen saturation 97% on room air. SKIN: Warm and dry. No rash. She is not diaphoretic. HEENT: Pupils equal, round, and reactive to light and accommodation. Conjunctiva is pink. There is no JVP. CARDIOVASCULAR SYSTEM: Heart is regular, bradycardic. No rub. CHEST: The patient does have rhonchorous breath sounds noted in upper lung quigley. ABDOMEN: Soft, nontender, nondistended. BACK: No CVA tenderness or sacral edema. EXTREMITIES: No clubbing, cyanosis, edema. PSYCHIATRIC: The patient is not very responsive. DIAGNOSTICS: Lab values are as follows: Hematology obtained on 07/20/2017: WBCs are 7.6, hemoglobin is 9.2, hematocrit is 27.1, platelet count is 161,000. Chemistry obtained on 07/20/2017: Sodium is 148, potassium 4.1, chloride is 115, carbon dioxide 21, BUN 15, creatinine is 1.07. Glucose 124, calcium is 8.5. IMPRESSION AND PLAN: 1. ASPIRATION PNEUMONIA. Will continue Zosyn and discontinue vancomycin. The patient is currently awaiting a modified barium swallow. The patient is currently afebrile. Will continue current measures and follow. 2. ACUTE KIDNEY INJURY. The patient's creatinine has improved with hydration. Will discontinue hydration for now. 3. ANEMIA. Some of this is hemodilution; however, it appears that it is probably a chronic issue. The patient has no overt evidence of bleeding. 4. HEMIPARESIS OF THE LEFT SIDE. This is due to the patient's cerebrovascular accident in the past. 5. HYPOTHYROIDISM. Will continue levothyroxine. 6. ADVANCED DEMENTIA. Will continue the patient's home medications, but will transition Zoloft to Cymbalta given the patient's bradycardia. 7. BRADYCARDIA. Will also half the patient's beta saranya. The patient does have a pacemaker placed. I am uncertain of when this will spike. 8. CORONARY ARTERY DISEASE. Will continue the patient's home medications. 9. HYPOTHYROIDISM. Will continue the patient's home medication. DISPOSITION: The patient is a DNR/DNI. Pending patient's symptomatology, diagnostic findings, especially results of the modified barium, will follow. Time spent on this followup including assessment, plan, physical examination, attempt at patient education, review of previous and current medical records is 35 minutes. DICTATING PHYSICIAN: EDY HERRING NP [id number] PHY#: [id number] ID: [id number] JOB#: [id number] ACCT: [id number] cc: >
[2017-07-20] MEDS: GUAIFENESIN 600 MG TABLET.SA PO SCH ×2 (12:24→21:44)
[2017-07-20] MEDS: MINERAL OIL/PETROLATUM,WHITE CREAM 114 GM TP SCH ×2 (12:25→17:12)
[2017-07-20] MEDS: GLIMEPIRIDE 1 MG TABLET PO SCH (12:28)
[2017-07-20] MEDS ORDERED: CARVEDILOL 6.25 MG TABLET PO ONE (12:30)
[2017-07-20] MEDS ORDERED: DULOXETINE HCL 30 MG CAPSULE.DR PO ONE (12:30)
[2017-07-20] MEDS: DIVALPROEX SODIUM 125 MG CAP.SPRINK PO SCH (13:53)
--- NOTE | 2017-07-20 17:48 | RADIOLOGY REPORT (SQ) ---
EXAM DESCRIPTION: COOKIE SWALLOW COMPLETED DATE/TIME: 07/20/2017 9:20 am REASON FOR STUDY: pneumonia COMPARISON: None. TECHNIQUE: Videofluoroscopic swallowing examination was performed in conjunction with speech patholo gy. Videofluoroscopic imaging was obtained and reviewed and these are the findings: RADIATION DOSE: Fluoro time 1.25 minutes 1 images saved to PACS. LIMITATIONS: Patient would only take a single swallow. FINDINGS: The patient was brought into the fluoro room and placed upright on a modified barium swall ow chair. The patient was then given multiple consistencies mixed with barium to swallow under live fluoroscopic video guidance. The patient would only swallow a single sip of thin barium. According to the Speech Pathologist there was no penetration or aspiration noted. Please refer to the speech pa thology report for further details. IMPRESSION: LIMITED COOKIE SWALLOW WITH NO EVIDENCE OF PENETRATION OR ASPIRATION.PLEASE SEE SPEECH P ATHOLOGIST REPORT FOR OTHER FINDINGS AND RECOMMENDATIONS. COMMENT: NONE Quality ID [id number]: Final reports for procedures using fluoroscopy that document radiation exposure shanna marian, or exposure time and number of fluorographic images (if radiation exposure indices are not avail able) TECHNICAL DOCUMENTATION: JOB ID: [id number] [employer]- All Rights Reserved
[2017-07-20] MEDS: CARVEDILOL 6.25 MG TABLET PO SCH (21:45)
[2017-07-21] MEDS: IPRATROPIUM/ALBUTEROL 0.5-2.5 MG/3 ML AMPUL NEB SCH ×3 (01:49→13:43)
[2017-07-21] MEDS: PIPERACILLIN SODIUM/TAZOBACTAM 2.25 GM in NORMAL SALINE 50 ML IV SCH (02:38)
[2017-07-21] MEDS: LEVOTHYROXINE SODIUM 0.1 MG TABLET PO SCH (06:13)
[2017-07-21] MEDS: LEVOTHYROXINE SODIUM 0.075 MG TABLET PO SCH (06:13)
[2017-07-21 07:56] VITALS: BP 168/58
[2017-07-21] MEDS ORDERED: DULOXETINE HCL 30 MG CAPSULE.DR PO SCH (10:00)
--- NOTE | 2017-07-21 11:23 | TRANSFER SUMMARY E ---
Transfer Summary NAME: ZAMZAM BIANCHI : 1940 AGE: 77Y ADMITTED: 07/18/2017 TRANSFERRED: 07/21/2017 CODE STATUS: DO NOT RESUSCITATE/DO NOT INTUBATE. DISCHARGE DIAGNOSES INCLUDE: 1. Aspiration pneumonia. 2. Acute kidney injury which resolved. 3. Hemiparesis of the left side which is chronic. 4. Advanced dementia. 5. Hypothyroidism. 6. Coronary artery disease. 7. Sick sinus syndrome and pacemaker placement. 8. Bradycardia. 9. Anemia. DISCHARGE MEDICATIONS INCLUDE: 1. Augmentin suspension 250 mg/62.5 mg, 500 mg p.o. every 8 hours x8 more days. 2. Coreg 6.125 mg p.o. every 12 hours. 3. Eucerin cream apply topically as needed b.i.d. 4. Zoloft 150 mg p.o. daily. 5. Risperdal 0.5 mg p.o. every 12 hours. 6. Risperdal 0.5 mg p.o. daily p.r.n. 7. Pravachol 40 mg p.o. at hour of sleep. 8. MiraLax 1 packet p.o. daily. 9. Naftin 1 application topically b.i.d. 10. Synthroid 175 mcg p.o. every morning. 11. Ketoconazole shampoo 2% one topical application on Wednesday, Wednesday, Wednesday. 12. Endit ointment apply topically b.i.d. p.r.n. to buttocks. 13. Hydrocortisone cream 1 topical application on Wednesday, Wednesday, Wednesday at 10 and 10, apply to face. 14. Amaryl 2 mg p.o. daily. 15. Pepcid 20 mg p.o. daily. 16. Depakote Sprinkle 125 mg p.o. daily. 17. Vitamin B Complex 1 tablet p.o. daily. 18. Clobetasol 1 application topically b.i.d. to arms and legs. 19. Vitamin D 4000 units p.o. daily. 20. Zyrtec 10 mg p.o. daily. 21. Calcium 600 mg p.o. every 12 hours. 22. Calcipotriene 1 application topically on Wednesday, Wednesday, Wednesday, , Wednesday at 10 and 10, apply to face. 23. Calcipotriene 1 topical application on Wednesday, Wednesday and Wednesday, apply to body psoriasis. 24. Betamethasone dipropionate 1 application topically b.i.d., apply to scaly areas behind ears. 25. Aggrenox 1 tablet p.o. every 12 hours. 26. Amlodipine/valsartan 10 mg/320 mg 1 p.o. daily. DIET: Pureed regular with thin liquids. DIAGNOSTICS: Lab values are as follows. Hematology obtained on 07/20/2017: WBCs are 7.6, hemoglobin is 9.2, hematocrit is 27.1, platelet count is 161,000. Coagulation obtained on 07/18/2017: PT is 14.8, INR is 1.08. Blood gas obtained on 07/18/2017: The pH is 7.45, PCO2 is 38.3, bicarb is 25.8. Chemistry obtained on 07/20/2017: Sodium is 148, potassium 4.1, chloride is 115, carbon dioxide 21, BUN 15, creatinine is 1.07, glucose 124, lactic acid is 0.7, calcium is 8.5, bilirubin is 0.5, AST 29, ALT is 39, alk phos 52, total protein 6.6, albumin 3.6. Urinalysis obtained on 07/18/2017: Color yellow, appearance slightly cloudy, pH of 6.0, specific gravity is 1.017, protein negative, glucose negative, ketones negative, occult blood negative, nitrite negative, bilirubin negative, urobilinogen negative, leukocyte esterase is negative, WBCs 2, RBCs 5, epithelial squamous cells 1, mucus rare, ascorbic acid is negative. Microbiology: Blood cultures obtained on 07/18/2017 reveal no growth. Urine culture obtained on 07/18/2017 reveals no growth. Chest x-ray obtained on 07/18/2017 reveals right upper lobe airspace disease worrisome for pneumonia. Modified barium swallow obtained on 07/20/2017 reveals no evidence of penetration or aspiration. EKG obtained on 07/18/2017 reveals a ventricular paced rhythm. PHYSICAL EXAMINATION: GENERAL: On examination, the patient is a frail, chronically ill-appearing 77-year-old female who is awake, alert but goes right back to sleep. The patient is at her baseline. She does not appear to be distressed. VITAL SIGNS: As follows: Temperature is 97.5, pulse 55, respirations 17, blood pressure 168/58, oxygen saturation is 95% on room air. SKIN: Warm and dry. No rash, not diaphoretic. HEENT: Pupils equal, round, and reactive to light and accommodation. Conjunctiva is pink. There is no JVP. CARDIOVASCULAR: Heart is regular. There is no murmur or rub. CHEST: Diminished, symmetrical, unlabored. ABDOMEN: Soft, nontender, nondistended. BACK: No CVA tenderness or sacral edema. EXTREMITIES: No clubbing, cyanosis, edema. PSYCHIATRIC: The patient is at her baseline. HISTORY OF PRESENT ILLNESS: The patient is a 77-year-old female with a past medical history of end-stage dementia and left-sided hemiparesis. The patient presented to the emergency department with a chief complaint of fever, nonproductive cough and decreased alertness from baseline. The patient was unable to provide any history in terms of acute or chronic events as the patient does reside in a dementia unit; however, it was felt the patient most likely had aspirated. Given these findings the patient was referred to the hospitalist for admission and management. HOSPITAL COURSE: The patient was admitted to continuous telemetry unit. The patient was placed on Zosyn and vancomycin for 48 hours. The patient's symptoms improved tremendously. The patient underwent a modified barium swallow and the patient had no evidence of aspiration, although she is at very high risk of this. The patient's diet is recommended to be pureed and thin. The patient was transitioned over to Augmentin. Since admission the patient has had no further fevers and no hypoxia. The patient is protected regarding airway with a very strong cough and the patient has been resumed on her home medications. DISCHARGE PLANNING: The patient is to follow up with her primary care provider within 1 week for hospital followup. Time spent on this discharge, including assessment/plan, physical examination, patient education, review of records and resource alignment, is 40 minutes. DICTATING PHYSICIAN: EDY HERRING NP [id number] PHY#: [id number] ID: [id number] JOB#: [id number] ACCT: [id number] cc:EDY HERRING NP >
[2017-07-21] MEDS: RISPERIDONE 0.25 MG TABLET PO SCH (12:17)
[2017-07-21] MEDS: GLIMEPIRIDE 1 MG TABLET PO SCH (12:18)
[2017-07-21] MEDS: GUAIFENESIN 600 MG TABLET.SA PO SCH (12:18)
[2017-07-21] MEDS: CETIRIZINE 10 MG TABLET PO SCH (12:19)
[2017-07-21] MEDS: DIVALPROEX SODIUM 125 MG CAP.SPRINK PO SCH (12:20)
[2017-07-21] MEDS: CALCIUM CARBONATE 500 MG TABLET PO SCH (12:20)
[2017-07-21] MEDS: ASPIRIN/DIPYRIDAMOLE 25-200 MG 1 CAP.SR CPMP.12HR PO SCH (12:20)
[2017-07-21] MEDS: CYANOCOBALAMIN/FA/PYRIDOXINE TABLET PO SCH (12:22)
[2017-07-21] MEDS: MINERAL OIL/PETROLATUM,WHITE CREAM 114 GM TP SCH (12:23)
[2017-07-21] MEDS: CARVEDILOL 6.25 MG TABLET PO SCH (12:32)
[2017-07-21] MEDS: VALSARTAN 160 MG TABLET PO SCH (12:32)
[2017-07-21] MEDS: POLYETHYLENE GLYCOL 3350 POWDER 17 GM/1 PACKET PO SCH (12:32)
[2017-07-21] MEDS: AMLODIPINE BESYLATE 10 MG TABLET PO SCH (12:32)
[2017-07-21] MEDS ORDERED: AMOXICILLIN TR/POT CLAVULANATE 250-62.5 MG/5 ML 75 ML PO SCH (14:00)
== END 2017-07-21 13:30 | DRG 178 ==
LOC: ER 08:14 → EH 11:52 → OBSVTOIN 11:52 → 4W 14:37
PROVIDERS: ADMIT Internal Medicine; ATTEND Internal Medicine
PROC: 3E0F73Z Introduction of Anti-inflammatory into Respiratory Tract, Via Natural or Artificial Opening (ICD-10-PCS; principal; 2017-07-18)
DX: J69.0 Pneumonitis due to inhalation of food and vomit (principal); N17.9 Acute kidney failure, unspecified; I69.354 Hemiplegia and hemiparesis following cerebral infarction affecting left non-dominant side; E87.0 Hyperosmolality and hypernatremia; F03.90 Unspecified dementia, unspecified severity, without behavioral disturbance, psychotic disturbance, mood disturbance, and anxiety; E03.9 Hypothyroidism, unspecified; I25.10 Atherosclerotic heart disease of native coronary artery without angina pectoris; R00.1 Bradycardia, unspecified; D64.9 Anemia, unspecified; I10 Essential (primary) hypertension; E78.5 Hyperlipidemia, unspecified; E11.9 Type 2 diabetes mellitus without complications; L40.9 Psoriasis, unspecified; M19.90 Unspecified osteoarthritis, unspecified site; F31.9 Bipolar disorder, unspecified; E86.0 Dehydration; Z66 Do not resuscitate; Z88.6 Allergy status to analgesic agent; I25.2 Old myocardial infarction; Z95.0 Presence of cardiac pacemaker; Z79.82 Long term (current) use of aspirin; Z79.899 Other long term (current) drug therapy
CPT/HCPCS: 36415; 71020; 74230; 80048; 80053; 81001; 82803; 82962; 83605; 85025; 85027; 85610; 87040; 87086; 93005; 93010; 94762; 96365; 99285; G8996-GN; G8997-GN; G8998-GN; J1650; J1956; J2543; J3370; J3490; J7030; J7620

== ENCOUNTER 2017-07-22 08:14 | Inpatient (IN) | payer MEDICARE, MEDICAID ==
--- NOTE | 2017-07-22 08:42 | ER Document Report ---
ED General - General Mode of Arrival: Ambulatory Information source: Patient TRAVEL OUTSIDE OF THE [place] IN LAST 30 DAYS: No <SUZIE SANTANA - Last Filed: 07/22/17 09:43> <ROBERT HICKMAN - Last Filed: 07/22/17 12:19> - General Stated Complaint: FEVER Time Seen by Provider: 07/22/17 08:29 Notes: Patient is a 77 year old female that presents to the emergency department today with complaints of "refusing tylenol" according to EMS. EMS states they were given by this information by caregivers at the [facility]. Patient is demented so history is limited. (SUZIE SANTANA) - Related Data Allergies/Adverse Reactions: codeine [Codeine] Allergy (Mild, Verified 07/18/17 16:33) Past Medical History - General Information source: Patient - Social History Smoking Status: Former Smoker Frequency of alcohol use: None Drug Abuse: None Lives with: Custodial - [facility] Family History: Reviewed & Not Pertinent, Other - Unobtainable 2/2 advanced dementia - Past Medical History Cardiac Medical History: Reports: Hx Coronary Artery Disease, Hx Heart Attack, Hx Hypercholesterolemia, Hx Hypertension Neurological Medical History: Reports: Hx Cerebrovascular Accident - Multiple infarcts Endocrine Medical History: Reports: Hx Diabetes Mellitus Type 2, Hx Hypothyroidism Renal/ Medical History: Reports: Hx End Stage Renal Disease - CRF, Hx Renal Insufficiency Musculoskeltal Medical History: Reports Hx Arthritis Skin Medical History: Reports Hx Psoriasis Psychiatric Medical History: Reports: Hx Bipolar Disorder, Hx Dementia - Multi- infarct dementia, Hx Depression Past Surgical History: Reports: Hx Cardiac Surgery - pacemaker, Hx Pacemaker - Immunizations Hx Diphtheria, Pertussis, Tetanus Vaccination: Yes Hx Pneumococcal Vaccination: 08/23/13 <SUZIE SANTANA - Last Filed: 07/22/17 09:43> Review of Systems - Review of Systems -: Yes ROS unobtainable due to patient's medical condition - demented <SUZIE SANTANA - Last Filed: 07/22/17 09:43> Physical Exam <SUZIE SANTANA - Last Filed: 07/22/17 09:43> <ROBERT HICKMAN - Last Filed: 07/22/17 12:19> - Vital signs Vitals: Resp Pulse Ox 20 99 07/22/17 08:22 07/22/17 08:22 - Notes Notes: Physical Exam: General: At baseline according to records HEENT: Normocephalic. Atraumatic. PERRL. Extraocular movements intact. Oropharynx clear. Neck: Supple. Non-tender. Respiratory: Tachypneic, wheezing and rhonchi throughout. Cardiovascular: Regular rate and rhythm. Abdominal: Normal Inspection. Non-tender. No distension. Normal Bowel Sounds. Back: Non-tender. No deformity or step off. Extremities: Moves all four extremities. Upper extremities: Normal inspection. Normal ROM. Lower extremities: Normal inspection. No edema. Normal ROM. Neurological: Demented at baseline Psychological: Unable to assess Skin: Warm. Dry. Normal color. (SUZIE SANTANA) Course - Laboratory Result Diagrams: 07/22/17 08:49 07/22/17 08:49 <SUZIE SANTANA - Last Filed: 07/22/17 09:43> - Laboratory Result Diagrams: 07/22/17 08:49 07/22/17 08:49 - Diagnostic Test Radiology reviewed: Image reviewed, Reports reviewed - Resolving right upper lobe infiltrate - EKG Interpretation by Ut EKG shows normal: Sinus rhythm, [place], Intervals, QRS Complexes, ST-T Waves Rate: Normal - 59 Rhythm: NSR [place]/QRS: RBBB, LAHB/LAFB - Consults Dr. Gasca Time consulted: 12:05 Consulted provider: will come to ER <ROBERT HICKMAN - Last Filed: 07/22/17 12:19> - Re-evaluation Re-evalutation: 07/22/17 11:37 Urinalysis today compared to her admission a few days ago now suggest a urinary tract infection. She is taking Augmentin. He was on Zosyn and vancomycin while she was in the hospital. (ROBERT HICKMAN) - Vital Signs Vital signs: Temp Pulse Resp BP Pulse Ox 100.6 F H 18 113/54 L 96 07/22/17 08:45 07/22/17 12:01 07/22/17 12:01 07/22/17 12:01 - Laboratory Laboratory results interpreted by mo: 07/22/17 07/22/17 07/22/17 08:49 08:49 09:24 RBC 3.26 L Hgb 10.2 L Hct 30.3 L RDW 15.2 H Est GFR (Non-Af Amer) 55 L Creatine Kinase 156 H Albumin 3.2 L Urine Blood MODERATE H Ur Leukocyte Esterase SMALL H Discharge <SUZIE SANTANA - Last Filed: 07/22/17 09:43> - Discharge Admitting Provider: Hospitalist Unit Admitted: IMCU <ROBERT HICKMAN - Last Filed: 07/22/17 12:19> - Discharge Clinical Impression: COPD exacerbation Urinary tract infection Qualifiers: Urinary tract infection type: site unspecified Hematuria presence: with hematuria Qualified Code(s): N39.0 - Urinary tract infection, site not specified Fever Qualifiers: Fever type: unspecified Qualified Code(s): R50.9 - Fever, unspecified Condition: Stable Disposition: ADMITTED INPATIENT Scribe Attestation: 07/22/17 09:26 I personally performed the services described in the documentation, reviewed and edited the documentation which was dictated to the scribe in my presence, and it accurately records my words and actions. (ROBERT HICKMAN) Scribe Documentation - Scribe Written by Moo:: Moo Alfonso, 07/22/2017 [id number] acting as scribe for :: Joyce <SUZIE SANTANA - Last Filed: 07/22/17 09:43>
[2017-07-22] MEDS ORDERED: IPRATROPIUM/ALBUTEROL 0.5-2.5 MG/3 ML AMPUL NEB ONE (08:43)
[2017-07-22 09:07] LABS: ABSOLUTE EOSINOPHILS # (AUTO) 0.3 10^3/uL (0.0-0.6); ABSOLUTE LYMPHOCYTES (AUTO) 1.6 10^3/uL (0.5-4.7); ABSOLUTE MONOCYTES (AUTO) 0.5 10^3/uL (0.1-1.4); ABSOLUTE NEUT (AUTO) 6.2 10^3/uL (1.7-8.2); BASOPHILS % (AUTO) 0.4 % (0-2); HEMATOCRIT 30.3 % (36.0-47.0); HEMOGLOBIN 10.2 g/dL (12.0-15.5); HGB HCT DIFFERENCE 0.3; LYMPHOCYTES % (AUTO) 18.5 % (13-45); MEAN CORPUSCULAR HEMOGLOBIN 31.2 pg (27.0-33.4); MEAN CORPUSCULAR HGB CONC 33.6 g/dL (32.0-36.0); MEAN CORPUSCULAR VOLUME 93 fl (80-97); MONOCYTES % (AUTO) 6.3 % (3-13); RED BLOOD COUNT 3.26 10^6/uL (3.72-5.28); RED CELL DISTRIBUTION WIDTH 15.2 % (11.5-14.0); SEGMENTED NEUTROPHILS % (AUTO) 71.8 % (42-78); WHITE BLOOD COUNT 8.6 10^3/uL (4.0-10.5)
[2017-07-22 09:41] LABS: CREATINE KINASE MB 0.75 ng/mL (<4.55)
[2017-07-22 09:42] LABS: ALANINE AMINOTRANSFERASE 42 U/L (9-52); ALBUMIN 3.2 g/dL (3.5-5.0); ALKALINE PHOSPHATASE 52 U/L (38-126); ANION GAP 10 (5-19); ASPARTATE AMINO TRANSFERASE 26 U/L (14-36); BILIRUBIN,DIRECT 0.3 mg/dL (0.0-0.4); BILIRUBIN,TOTAL 0.3 mg/dL (0.2-1.3); BLOOD UREA NITROGEN 13 mg/dL (7-20); CALCIUM 8.8 mg/dL (8.4-10.2); CARBON DIOXIDE 26 mmol/L (22-30); CHLORIDE 107 mmol/L (98-107); CREATINE KINASE 156 U/L (30-135); CREATININE RESULT 0.98 mg/dL (0.52-1.25); GLUCOSE 99 mg/dL (75-110); POTASSIUM 3.9 mmol/L (3.6-5.0); SODIUM 142.6 mmol/L (137-145); TOTAL PROTEIN 6.5 g/dL (6.3-8.2)
[2017-07-22 09:49] LABS: TROPONIN I 0.035 ng/mL
--- NOTE | 2017-07-22 09:54 | RADIOLOGY REPORT (SQ) ---
EXAM DESCRIPTION: CHEST SINGLE VIEW COMPLETED DATE/TIME: 07/22/2017 9:21 am REASON FOR STUDY: Wheezes, rhonchi, COPD, fever, recent right upper COMPARISON: 07/18/2017 EXAM PARAMETERS: NUMBER OF VIEWS: One view. TECHNIQUE: Single frontal radiographic view of the chest acquired. RADIATION DOSE: NA LIMITATIONS: None. FINDINGS: LUNGS AND PLEURA: The previously described right upper lobe airspace disease appears impro magnolia. Residual changes are identified. Remaining lung quigley are clear. MEDIASTINUM AND HILAR STRUCTURES: No masses. Contour normal. HEART AND VASCULAR STRUCTURES: The configuration of the heart and mediastinal structures is unchanged . BONES: No acute findings. HARDWARE: Transvenous pacemaker is unchanged in position. OTHER: No other significant finding. IMPRESSION: Interval improvement in the right upper lobe airspace disease. Other findings as noted above TECHNICAL DOCUMENTATION: JOB ID: [id number] [employer]- All Rights Reserved
[2017-07-22 10:01] LABS: APPEARANCE,URINE SLIGHTLY-CLOUDY; BILIRUBIN,URINE NEGATIVE (NEGATIVE); GLUCOSE, URINE NEGATIVE (NEGATIVE); KETONES,URINE NEGATIVE (NEGATIVE); LEUKOCYTE ESTERASE,URINE SMALL (NEGATIVE); NITRITE,URINE NEGATIVE (NEGATIVE); PROTEIN,URINE NEGATIVE (NEGATIVE); UROBILINOGEN,URINE NEGATIVE mg/dL (<2.0)
[2017-07-22] MEDS ORDERED: ALBUTEROL SULFATE 0.083% NEB 2.5 MG/3 ML AMPUL NEB ONE (12:05)
[2017-07-22] MEDS ORDERED: PIPERACILLIN/TAZOBACTAM 3.375 GM VIAL IV ONE (12:20)
[2017-07-22] MEDS ORDERED: VANCOMYCIN HCL INJ 1000 MG VIAL IV ONE (12:20)
[2017-07-22] MEDS ORDERED: LEVALBUTEROL HCL NEB 0.63 MG/3 ML AMPUL NEB PRN (12:56)
--- NOTE | 2017-07-22 13:31 | EKG REPORT ---
SEVERITY:- ABNORMAL ECG - SINUS RHYTHM RBBB AND LAFB NONSPECIFIC ST-T CHANGES- INFERIOR LEADS : Confirmed by: Kaiden Jaime MD 22-Jul-2017 13:31:09
[2017-07-22] MEDS: HEPARIN SOD (PORCINE) 5,000 UNIT/ML 1 ML SYRINGE SUBCUT SCH ×2 (14:21→21:18)
[2017-07-22] MEDS ORDERED: FUROSEMIDE INJ/PF 20 MG/2 ML SDV IV ONE (15:00)
--- NOTE | 2017-07-22 16:03 | HISTORY AND PHYSICAL E ---
History and Physical NAME: ZAMZAM BIANCHI : 1940 AGE: 77Y ADMITTED: 07/22/2017 ROOM: ED02 CODE STATUS: Do Not Resuscitate/Do Not Intubate. RESIDENTIAL FACILITY: [facility]. CHIEF COMPLAINT: Fever. HISTORY OF PRESENT ILLNESS: The patient is a 77-year-old female with a past medical history of advanced dementia, as well as chronic aspiration. The patient presented to the Emergency Department via EMS from her dementia unit with a chief complaint of fever and refusing Tylenol. The patient was just discharged from our service on 07/21/2017 with a final diagnosis of aspiration pneumonia. The patient had been effectively treated for 72 hours with Zosyn and had been transitioned to Augmentin with benefit of symptoms. The patient was found to be extremely high aspiration risk and recommendations had been made for a pureed diet and honey thickened liquids. The patient was transferred back to [facility] where she was transferred back today due to a low-grade temp of 100.5. The patient was also refusing Tylenol. Given the patient's dementia, history has had to be obtained from previous and current medical records. The patient's urinalysis today as compared to just a few days ago is suggestive of a urinary tract infection. The patient is currently on Augmentin, which she was discharged on. Upon presentation to the Emergency Department, the patient was found to have a temperature of 100.6, a pulse of 67, respirations 18. The patient was found to be normotensive, and the patient appeared to be at her baseline on examination. No other history is able to be provided at this time. PAST MEDICAL HISTORY: 1. Admissions for aspiration pneumonia. 2. Recent acute kidney injury, which resolved. 3. Left-sided hemiparesis, which is chronic from known cerebrovascular disease. 4. Advanced dementia. 5. Hypothyroidism. 6. Coronary artery disease. 7. Sick sinus syndrome with pacemaker placement. 8. Persistent bradycardia. 9. Anemia. HOME MEDICATIONS: 1. Augmentin 500 mg p.o. q.8 hours. 2. Coreg 6.125 mg p.o. q.12 hours. 3. Eucerin cream topically p.r.n. b.i.d. 4. Zoloft 150 mg p.o. daily. 5. Risperdal 0.5 mg p.o. every 12 hours. 6. Risperdal 0.5 mg daily p.r.n. 7. Pravachol 40 mg p.o. q. hour sleep. 8. MiraLAX 1 packet p.o. daily. 9. Naftin 1 application topically b.i.d. 10. Synthroid 175 mcg p.o. q.a.m. 11. Ketoconazole shampoo on Wednesday, Wednesday, Wednesday. 12. Endit ointment apply topically b.i.d. p.r.n. to buttocks. 13. Hydrocortisone cream 1 topical application on Wednesday, Wednesday, Wednesday at 10 and 10, apply to face. 14. Amaryl 2 mg p.o. daily. 15. Pepcid 20 mg p.o. daily. 16. Depakote sprinkles 125 mg p.o. daily. 17. Vitamin B complex 1 tablet p.o. daily. 18. Clobetasol 1 application topically b.i.d. to arms and legs. 19. Vitamin D 4000 units p.o. daily. 20. Zyrtec 10 mg p.o. daily. 21. Calcium 600 mg p.o. q.12 hours. 22. Calcipotriene 1 application topically on Wednesday, Wednesday, Wednesday, , Wednesday at 10 and 22, apply to face. 23. Calcipotriene 1 topical application on Wednesday, Wednesday, Wednesday, apply to body psoriasis. 24. Betamethasone dipropionate 1 application topically b.i.d., apply to scaly areas behind ears. 25. Aggrenox 1 tablet p.o. q.12 hours. 26. Amlodipine/valsartan 10 mg/320 one tablet p.o. daily. ALLERGIES: CODEINE. SOCIAL HISTORY: The patient is currently a long-time resident at [facility]. She has no documented history of tobacco use or illicit drug use. No noted alcohol use. FAMILY MEDICAL HISTORY: Unable to be obtained, given the patient's dementia. PAST SURGICAL HISTORY: Includes pacemaker. REVIEW OF SYSTEMS: Unobtainable, given the patient's mentation. PHYSICAL EXAMINATION: GENERAL: On examination, the patient is a frail, chronically ill-appearing 77-year-old female who is awake, alert, and is the most alert I have seen her in quite some time. She does not appear to be distressed. VITAL SIGNS: Temperature is 100.6, pulse 57, respirations 20, blood pressure 137/55, oxygen saturation 94% on 2L nasal cannula. SKIN: Quite scaly. Multiple areas of what appears to be rosacea and psoriasis, but she is not diaphoretic. HEENT: Pupils equal, round, reactive to light and accommodation. Conjunctiva is pink. Sclera is not icterus. NECK: There is no JVP. No palpable lymphadenopathy or thyromegaly. CARDIOVASCULAR SYSTEM: Heart is regular. There is no murmur or rub. CHEST: Rhonchorous breath sounds are noted in upper lung quigley, diminished in the bases, symmetrical, unlabored. ABDOMEN: Soft, nontender, nondistended. BACK: No CVA tenderness or sacral edema. EXTREMITIES: No clubbing, cyanosis, edema, or peripheral signs of embolization, +2 pedal pulses noted bilaterally. PSYCHIATRIC: The patient is awake and alert, quite confused, which is her baseline. DIAGNOSTICS: Lab values are as follows: Hematology obtained on 07/22/2017: WBCs are 8.6, hemoglobin is 10.2, hematocrit is 30.3, platelet count is 238,000. Chemistry obtained on 07/22/2017: Sodium is 142, potassium 3.9, chloride is 107, carbon dioxide 26, BUN 13, creatinine is 0.98, glucose 99, lactic acid is 0.7, calcium is 8.8, bilirubin is 0.3, AST 26, ALT is 42, alk phos 52, CK 156, CK-MB is 0.75. Troponin is 0.035. Total protein 6.5, albumin 3.2. Urinalysis obtained on 07/22/2017: Color yellow, appearance slightly cloudy, pH is 6.0, specific gravity is 1.010, protein negative, glucose negative, ketones negative, occult blood moderate, nitrite negative, bilirubin negative, urobilinogen is negative, leukocyte esterase is negative, WBCs 28, RBCs 25, epithelial squamous cells 2, mucus rare, ascorbic acid is negative. Microbiology: Blood cultures obtained on 07/22/2017 are pending. Urine culture obtained on 07/22/2017 is pending. Chest x-ray obtained on 07/22/2017 reveals improvement in the right upper lobe airspace disease. IMPRESSION AND PLAN: 1. Reaspiration pneumonia. The patient sounds much worse clinically than she did yesterday. It appears she has reaspirated. We will cover the patient with IV antibiotic coverage, attempt to obtain sputum specimen, NTSs if needed, and also we will add Mucinex and nebulizers and follow. 2. Abnormal urinalysis. The patient may have an underlying urinary tract infection. Culture is pending. We will continue antibiotic coverage for now and follow. 3. Advanced dementia. The patient appears to be at her baseline. We will continue to monitor for alternations in her mental status. 4. Cerebrovascular disease with left-sided hemiparesis, which is chronic. We will continue medications. 5. Bipolar disorder. We will continue the patient's home medications. 6. Hypothyroidism. We will continue levothyroxine. 7. Coronary artery disease. We will continue the patient's home medications. 8. Anemia. The patient's hemoglobin appears at baseline. DISPOSITION: The patient is a Do Not Resuscitate/Do Not Intubate. Pending the patient's symptomatology and diagnostic findings, we will reevaluate in the a.m. We will admit the patient to medical, as the patient's expected length of stay should surpass 2 midnights. We will consult Palliative Care, given that the patient is persistently reaspirating and the patient's quality of life is quite poor. Time spent on this admission including assessment, plan, physical examination, patient education and specialty collaboration is 60 minutes. DICTATING PHYSICIAN: EDY HERRING NP [id number] PHY#: [id number] ID: [id number] JOB#: [id number] ACCT: [id number] cc: >
[2017-07-22] MEDS: GUAIFENESIN 600 MG TABLET.SA PO SCH (21:19)
[2017-07-22] MEDS: MEROPENEM 1 GM in NORMAL SALINE 50 ML IV SCH (21:20)
--- NOTE | 2017-07-22 22:52 | Palliative Consultation Report ---
Consultation From:: COURTNEY VILLA - HPI HPI: Palliative care consult visit 07/22/17 4:00- 4:20 PM Appreciate palliative care consult for this 77 year old woman who resides at the [facility] in [place] due to her dementia. Mrs. Tian was brought to ER from the facility due to fever and her refusal to take tylenol at the facility. Patient has recently been hospitalized for aspiration pneumonia and continues to be on Augmentin. She is still running fevers and having some symptoms. Her temp today at [facility] and ER was 100.5. Today she has positive urinalysis suggesting UTI. Ms. Tian has a guardian appointed to oversee her care but the guardian and no family with her at the time of my visit. She is in her bed, smiling and answering simple questions about temperature in the room, etc. She denies having any pain. She cannot tell me where she lives and cannot say her name clearly. I spoke with hospice nurse who states she has talked with staff at the [facility] about this patient. With her recurrent hospitalizations, infections, aspiration issues, she is appropriate for hospice care. I suggested she discuss discharge to [facility] with hospice support and if guardian agrees , perhaps she can be kept comfortable at facility and not have to return to hospital. Onset: Last week Onset/Duration: Gradual Quality of Pain: No pain Associated Symptoms: Chills, Fever, Weakness Past Medical History(Consults) - General Information Source: [facility] Records Home Medications: Acetaminophen [Tylenol] 650 mg PO Q8 07/22/17 Amlodipine Besylate/Valsartan [Amlodipine-Valsartan 10-320 mg] 1 tab PO DAILY Amoxicillin/Potassium Clav [Amox Tr-K Clv 250-62.5/5 Susp] 500 mg PO Q8 Aspirin/Dipyridamole [Aggrenox 25 mg-200 mg Capsule] 1 cap PO Q12 07/22/17 Betamet Diprop/Prop Gly [Betamethasone Dp Aug 0.05% Cream] 1 applic TP BID 07/22 Calcipotriene [Dovonex Cream] 1 applic TP MOTUWETHFR@1000,1800 07/22/17 Calcipotriene [Dovonex Cream] 1 applic TP SUFRSA@1000,1800 07/22/17 Calcium Carbonate [Calcium] 600 mg PO BID 07/22/17 Carvedilol [Coreg 12.5 mg Tablet] 12.5 mg PO Q12 07/22/17 Cetirizine HCl [Zyrtec 10 mg Tablet] 10 mg PO DAILY 07/22/17 Clobetasol Propionate/Emoll [Clobetasol Emollient 0.05% Crm] 1 applic TP BID Clobetasol Propionate/Emoll [Clobetasol Emollient 0.05% Crm] 1 applic TP BIDP PRN 07/22/17 Guaifenesin [Mucinex] 600 mg PO Q12HP PRN 07/22/17 Hydrocortisone Acetate/Danyel Echo [Cortaid With Aloe 0.5% Cream] 1 applic TP SUFRSA @1000,1800 07/22/17 Insulin Aspart [Novolog Insulin 100 Unit/1 ml 10 ml] 0 unit SUBCUT .SLD SCALE Ketoconazole [Nizoral 2% Shampoo 120 Ml Bottle] 1 applic TP ASDIR PRN 07/22/17 Levothyroxine Sodium [Synthroid] 175 mcg PO Q6AM 07/22/17 Lorazepam [Ativan 0.5 mg Tablet] 0.5 mg PO TIDP PRN 07/22/17 Mineral Oil/Petrolatum,White [Minerin Creme] 1 applic TP BID 07/22/17 Naftifine HCl [Naftin] 1 applic TP BID 07/22/17 Polyethylene Glycol 3350 [Miralax Powder 17 gm/Packet] 1 packet PO DAILY Pravastatin Sodium [Pravachol] 40 mg PO QHS 07/22/17 Risperidone [Risperdal] 0.5 mg PO DAILYP PRN 07/22/17 Allergies/Adverse Reactions: codeine [Codeine] Allergy (Mild, Verified 07/18/17 16:33) - Social History Lives with: Assisted - [facility] Family History: None, Reviewed & Not Pertinent, Other - Unobtainable 2/2 advanced dementia Parental Family History Reviewed: No Children Family History Reviewed: No Sibling(s) Family History Reviewed.: No Smoking Status: Former Smoker Frequency of Alcohol Use: None Hx Recreational Drug Use: No Drugs: None Hx Prescription Drug Abuse: No - Past Medical History Cardiac Medical History: Reports: Hx Coronary Artery Disease, Hx Heart Attack, Hx Hypercholesterolemia, Hx Hypertension Pulmonary Medical History: Reports: Hx Pneumonia Neurological Medical History: Reports: Hx Cerebrovascular Accident - Multiple infarcts Endocrine Medical History: Reports: Hx Diabetes Mellitus Type 2, Hx Hypothyroidism Renal/ Medical History: Reports: Hx End Stage Renal Disease - CRF, Hx Renal Insufficiency. Denies: Hx Peritoneal Dialysis Musculoskeltal Medical History: Reports Hx Arthritis Skin Medical History: Reports Hx Psoriasis Psychiatric Medical History: Reports: Hx Bipolar Disorder, Hx Dementia - Multi- infarct dementia, Hx Depression - Surgical History Past Surgical History: Reports: Hx Cardiac Surgery - pacemaker, Hx Pacemaker Review of systems ROS unobtainable: due to mental statu Ojective:Exam Vital Signs: Temp Pulse Resp BP Pulse Ox 98.0 F 55 L 19 155/51 H 95 07/22/17 19:11 07/22/17 21:46 07/22/17 19:11 07/22/17 19:11 07/22/17 19:11 Intake & Output 07/21/17 07/22/17 07/23/17 06:59 06:59 06:59 Intake Total 400 Balance 400 Weight 57.7 kg - General General Appearance: Alert In distress: None Note:: Denies pain, no respiratory struggle, laying bed quietly with no distress. - HEENT Head: Normocephalic Eyes: Pale conjunctiva Pupils: PERRLA Mucous membrane: Moist - Respiratory Respiratory Status: No respiratory distress Breath sounds: Rhonchi - Abdominal Inspection: Normal Distension: No distension Tenderness: Nontender - Extremities Upper extremity: Normal inspection Lower extremities: Normal inspection - Neurological Cognition: Other - dementia Orientation: Oriented to person Cranial nerves: Normal Motor exam: Equal performance consultant - Psychological Associated symptoms: Normal affect Plan and Recommendation Plan and Recommendation: Patient is hospice appropriate. Hospice liason will speak to facility nurse and patients guardian about starting hospice services at [facility] after discharge from [facility]. Ms. Tian appears comfortable at present and has been admitted to room with no noted distress. WIll follow with liason.
[2017-07-23] MEDS: HEPARIN SOD (PORCINE) 5,000 UNIT/ML 1 ML SYRINGE SUBCUT SCH ×3 (05:24→21:17)
[2017-07-23 06:32] LABS: HEMATOCRIT 30.7 % (36.0-47.0); HEMOGLOBIN 10.4 g/dL (12.0-15.5); HGB HCT DIFFERENCE 0.5; MEAN CORPUSCULAR HEMOGLOBIN 31.1 pg (27.0-33.4); MEAN CORPUSCULAR HGB CONC 33.9 g/dL (32.0-36.0); MEAN CORPUSCULAR VOLUME 92 fl (80-97); RED BLOOD COUNT 3.34 10^6/uL (3.72-5.28); RED CELL DISTRIBUTION WIDTH 14.5 % (11.5-14.0); WHITE BLOOD COUNT 7.2 10^3/uL (4.0-10.5)
[2017-07-23 06:52] LABS: ANION GAP 12 (5-19); BLOOD UREA NITROGEN 14 mg/dL (7-20); CALCIUM 8.8 mg/dL (8.4-10.2); CARBON DIOXIDE 27 mmol/L (22-30); CHLORIDE 106 mmol/L (98-107); CREATININE RESULT 0.97 mg/dL (0.52-1.25); GLUCOSE 90 mg/dL (75-110); POTASSIUM 4.3 mmol/L (3.6-5.0); SODIUM 145.3 mmol/L (137-145)
[2017-07-23] MEDS: MEROPENEM 1 GM in NORMAL SALINE 50 ML IV SCH ×2 (09:43→21:17)
[2017-07-23] MEDS: GUAIFENESIN 600 MG TABLET.SA PO SCH ×2 (09:44→21:17)
[2017-07-23] MEDS ORDERED: (PENDING PHARMACY ID) (Risperidone [Risperdal] 0.5 MG) PO PRN (11:06)
[2017-07-23] MEDS ORDERED: LORAZEPAM 0.5 MG TABLET PO PRN (11:06)
[2017-07-23] MEDS ORDERED: (PENDING PHARMACY ID) (Amlodipine Besylate/Valsartan [Amlodipine-Valsartan 10-320 Mg] 1 TA PO SCH (11:15)
[2017-07-23] MEDS ORDERED: (PENDING PHARMACY ID) (Levothyroxine Sodium [Synthroid] 175 MCG) PO SCH (11:15)
[2017-07-23] MEDS ORDERED: (PENDING PHARMACY ID) (Betamet Diprop/Prop Gly [Betamethasone Dp Aug 0.05% Cream] 1 APPLIC TP SCH (11:15)
[2017-07-23] MEDS ORDERED: (PENDING PHARMACY ID) (Calcium Carbonate [Calcium] 600 MG) PO SCH (11:15)
[2017-07-23] MEDS ORDERED: RISPERIDONE 0.25 MG TABLET PO PRN (11:30)
[2017-07-23] MEDS ORDERED: CARVEDILOL 12.5 MG TABLET PO ONE (12:00)
[2017-07-23] MEDS: CALCIUM CARBONATE 500 MG TABLET PO SCH (17:09)
--- NOTE | 2017-07-23 17:53 | PDOC PROGRESS REPORT ---
Subjective Progress Note for:: 07/23/17 Subjective:: Frequent aspiration pneumonias secondary to end-stage dementia. Patient is not cooperative. She has some contractures noted. Attempt to contact her POA who is a 40 and however patient has 2 grown sons who are not actively engaging in her care. Hospice discussion was initiated yesterday via chart. POA states she will need to attempt to reach out to her signs to make sure that everyone is on board with the decision of comfort measures only. Despite measures pure food and thickened liquids patient continues to aspirate with frequent hospitalizations and antibiotics. Reason For Visit: FEVER Physical Exam Vital Signs: Temp Pulse Resp BP Pulse Ox 98.2 F 73 17 152/53 H 93 07/23/17 15:20 07/23/17 15:20 07/23/17 15:20 07/23/17 15:20 07/23/17 15:20 Intake & Output 07/22/17 07/23/17 07/24/17 06:59 06:59 06:59 Intake Total 624 60 Balance 624 60 Weight 57.7 kg General appearance: PRESENT: disheveled, thin Teeth exam: PRESENT: poor dentation Respiratory exam: PRESENT: decreased breath sounds, rhonchi GI/Abdominal exam: PRESENT: normal bowel sounds, soft. ABSENT: distended, guarding, mass, organolmegaly, rebound, tenderness Rectal exam: PRESENT: deferred Musculoskeletal exam: PRESENT: deformity, tenderness, other - Contractures noted to lower extremities and left upper extremity Results Laboratory Results: 07/23/17 05:58 07/23/17 05:58 07/23/17 07/23/17 05:58 05:58 WBC 7.2 RBC 3.34 L Hgb 10.4 L Hct 30.7 L MCV 92 MCH 31.1 MCHC 33.9 RDW 14.5 H Plt Count 226 Sodium 145.3 H Potassium 4.3 Chloride 106 Carbon Dioxide 27 Anion Gap 12 BUN 14 Creatinine 0.97 Est GFR ( Amer) > 60 Est GFR (Non-Af Amer) 56 L Glucose 90 Calcium 8.8 Impressions: Chest X-Ray 07/22/17 08:42 IMPRESSION: Interval improvement in the right upper lobe airspace disease. Other findings as noted above Assessment & Plan - Diagnosis (1) Aspiration pneumonia Is this a current diagnosis for this admission?: Yes (2) Acute kidney injury (nontraumatic) Is this a current diagnosis for this admission?: Yes (3) Advanced dementia Is this a current diagnosis for this admission?: Yes (4) MRSA (methicillin resistant staph aureus) culture positive Is this a current diagnosis for this admission?: Yes (5) Pneumonia Qualifiers: Pneumonia type: aspiration pneumonia Laterality: right Lung location: upper lobe of lung Is this a current diagnosis for this admission?: Yes - Plan Summary Plan Summary: I recommend comfort measures with this patient possibly discharging back to the facility with hospice services. Her POA who is a good friend been taking care of her for long time will get in touch with her 2 sons regarding their wishes will let me know tomorrow.
[2017-07-23] MEDS: CARVEDILOL 12.5 MG TABLET PO SCH (21:17)
[2017-07-24] MEDS: LEVOTHYROXINE SODIUM 0.075 MG TABLET PO SCH (05:36)
[2017-07-24] MEDS: HEPARIN SOD (PORCINE) 5,000 UNIT/ML 1 ML SYRINGE SUBCUT SCH ×3 (05:36→22:07)
[2017-07-24] MEDS: LEVOTHYROXINE SODIUM 0.1 MG TABLET PO SCH (05:36)
[2017-07-24] MEDS: AMLODIPINE BESYLATE 10 MG TABLET PO SCH (08:53)
[2017-07-24] MEDS: MEROPENEM 1 GM in NORMAL SALINE 50 ML IV SCH ×2 (08:53→22:42)
[2017-07-24] MEDS: CARVEDILOL 12.5 MG TABLET PO SCH ×2 (08:53→22:40)
[2017-07-24] MEDS: CALCIUM CARBONATE 500 MG TABLET PO SCH ×2 (08:53→17:35)
[2017-07-24] MEDS: VALSARTAN 160 MG TABLET PO SCH (08:54)
[2017-07-24] MEDS: GUAIFENESIN 600 MG TABLET.SA PO SCH ×2 (08:56→22:42)
--- NOTE | 2017-07-24 17:41 | PDOC PROGRESS REPORT ---
Subjective Progress Note for:: 07/24/17 Subjective:: Frequent aspiration pneumonias secondary to end-stage dementia. Patient is not cooperative. She has some contractures noted. Attempt to contact her POA who is a 40 and however patient has 2 grown sons who are not actively engaging in her care. Hospice discussion was initiated yesterday via chart. POA states she will need to attempt to reach out to her signs to make sure that everyone is on board with the decision of comfort measures only. Despite measures pure food and thickened liquids patient continues to aspirate with frequent hospitalizations and antibiotics. Today I had a long discussion with patient's POA who wanted the patient's deacon from her [employer] to come talk with me regarding attempting to feed patient via PEG. Long lengthy discussions regarding goals of care, evaluation of if patient is a candidate versus comfort food and care. After lots of discussions I have asked him to talk with the surgeon who came to see and evaluate the patient for me for PEG placement due to her body habitus and contractures possibly having a discussion with the family regarding goals of care. Reason For Visit: FEVER Physical Exam Vital Signs: Temp Pulse Resp BP Pulse Ox 98.8 F 69 20 163/66 H 93 07/24/17 11:19 07/24/17 15:15 07/24/17 15:15 07/24/17 11:19 07/24/17 15:15 Intake & Output 07/23/17 07/24/17 07/25/17 06:59 06:59 06:59 Intake Total 624 295 Balance 624 295 Weight 57.7 kg General appearance: PRESENT: no acute distress Mouth exam: PRESENT: dry mucosa Teeth exam: PRESENT: poor dentation Respiratory exam: PRESENT: accessory muscle use, prolonged expiratory phas, wheezes Pulses: PRESENT: +1 pedal pulses bilateral GI/Abdominal exam: PRESENT: soft. ABSENT: tenderness Rectal exam: PRESENT: deferred Neurological exam: PRESENT: altered Results Laboratory Results: 07/23/17 05:58 07/23/17 05:58 Impressions: Chest X-Ray 07/22/17 08:42 IMPRESSION: Interval improvement in the right upper lobe airspace disease. Other findings as noted above Assessment & Plan - Diagnosis (1) Aspiration pneumonia Is this a current diagnosis for this admission?: Yes Plan: Goals of care discussion is necessary to determine to comfort feeds the patient or be aggressive in treating her aspiration pneumonia due to her failure to thrive and significant amount of decline in the last 6 months. No one would be surprised if patient passed in the next 6 months. She has become multidrug- resistant with aspiration pneumonia secondary to dysphagia due to her advance dementia. Long discussion with Dr. OSEGUERA who agreed that this patient would not be a very good candidate for PEG tube or would it sustain or increase her quality of life. This information was conveyed to patient's POA and taken and they agreed to comfort measures only which should be arranged in the retirement on Wednesday she will need some change in medications. Unless we can arrange hospice services in the morning (2) Acute kidney injury (nontraumatic) Is this a current diagnosis for this admission?: Yes (3) Advanced dementia Is this a current diagnosis for this admission?: Yes (4) MRSA (methicillin resistant staph aureus) culture positive Is this a current diagnosis for this admission?: Yes (5) Pneumonia Qualifiers: Pneumonia type: aspiration pneumonia Laterality: right Lung location: upper lobe of lung Is this a current diagnosis for this admission?: Yes
[2017-07-25] MEDS: HEPARIN SOD (PORCINE) 5,000 UNIT/ML 1 ML SYRINGE SUBCUT SCH ×2 (06:38→15:27)
[2017-07-25] MEDS: LEVOTHYROXINE SODIUM 0.075 MG TABLET PO SCH (06:38)
[2017-07-25] MEDS: LEVOTHYROXINE SODIUM 0.1 MG TABLET PO SCH (06:38)
[2017-07-25] MEDS: CARVEDILOL 12.5 MG TABLET PO SCH ×2 (11:23→22:45)
[2017-07-25] MEDS: CALCIUM CARBONATE 500 MG TABLET PO SCH ×2 (11:23→19:00)
[2017-07-25] MEDS: VALSARTAN 160 MG TABLET PO SCH (11:23)
[2017-07-25] MEDS: AMLODIPINE BESYLATE 10 MG TABLET PO SCH (11:23)
[2017-07-25] MEDS: MEROPENEM 1 GM in NORMAL SALINE 50 ML IV SCH (11:27)
[2017-07-25] MEDS: GUAIFENESIN SYRP 200 MG/10 ML UDC PO SCH ×3 (15:27→22:45)
--- NOTE | 2017-07-25 17:21 | PDOC PROGRESS REPORT ---
Subjective Progress Note for:: 07/25/17 Subjective:: Frequent aspiration pneumonias secondary to end-stage dementia. Patient is not cooperative. She has some contractures noted. Attempt to contact her POA who is a 39 and however patient has 2 grown sons who are not actively engaging in her care. Hospice discussion was initiated yesterday via chart. POA states she will need to attempt to reach out to her signs to make sure that everyone is on board with the decision of comfort measures only. Despite measures pure food and thickened liquids patient continues to aspirate with frequent hospitalizations and antibiotics. 07/24/17 I had a long discussion with patient's POA who wanted the patient's deacon from her [employer] to come talk with me regarding attempting to feed patient via PEG. Long lengthy discussions regarding goals of care, evaluation of if patient is a candidate versus comfort food and care. After lots of discussions I have asked him to talk with the surgeon who came to see and evaluate the patient for me for PEG placement due to her body habitus and contractures possibly having a discussion with the family regarding goals of care. 07/25/17 patient seems to be a little more alert today. Will offer comfort food. No acute distress noted Reason For Visit: FEVER Physical Exam Vital Signs: Temp Pulse Resp BP Pulse Ox 98.4 F 50 L 16 150/53 H 93 07/25/17 08:15 07/25/17 14:00 07/25/17 08:15 07/25/17 08:15 07/25/17 08:15 Intake & Output 07/24/17 07/25/17 07/26/17 06:59 06:59 06:59 Intake Total 295 360 Balance 295 360 Weight 58.9 kg General appearance: PRESENT: no acute distress, thin Head exam: PRESENT: atraumatic, normocephalic Eye exam: PRESENT: conjunctiva pink, EOMI, PERRLA. ABSENT: scleral icterus Ear exam: PRESENT: normal external ear exam Mouth exam: PRESENT: dry mucosa Neck exam: ABSENT: carotid bruit, JVD, lymphadenopathy, thyromegaly Respiratory exam: PRESENT: accessory muscle use, decreased breath sounds, rhonchi GI/Abdominal exam: PRESENT: normal bowel sounds, soft. ABSENT: distended, guarding, mass, organolmegaly, rebound, tenderness Rectal exam: PRESENT: deferred Musculoskeletal exam: PRESENT: deformity - Bilateral upper and lower extremity contracture. ABSENT: ambulatory Neurological exam: PRESENT: alert, altered Psychiatric exam: PRESENT: normal mood Focused psych exam: PRESENT: psychomotor agitation Skin exam: PRESENT: dry, warm Results Laboratory Results: 07/23/17 05:58 07/23/17 05:58 Impressions: Chest X-Ray 07/22/17 08:42 IMPRESSION: Interval improvement in the right upper lobe airspace disease. Other findings as noted above Assessment & Plan - Diagnosis (1) Aspiration pneumonia Is this a current diagnosis for this admission?: Yes (2) Acute kidney injury (nontraumatic) Is this a current diagnosis for this admission?: Yes (3) Advanced dementia Is this a current diagnosis for this admission?: Yes (4) MRSA (methicillin resistant staph aureus) culture positive Is this a current diagnosis for this admission?: Yes (5) Pneumonia Qualifiers: Pneumonia type: aspiration pneumonia Laterality: right Lung location: upper lobe of lung Is this a current diagnosis for this admission?: Yes (6) Altered mental status Qualifiers: Altered mental status type: transient alteration of awareness Qualified Code(s): R40.4 - Transient alteration of awareness Is this a current diagnosis for this admission?: Yes (7) Right upper lobe pneumonia Qualifiers: Pneumonia type: aspiration pneumonia Aspiration pneumonia type: due to regurgitated food Is this a current diagnosis for this admission?: Yes Plan: On discussion with patient POA and family members. Who are all in agreement with comfort measures and hospice services at this time. [facility] and the plan is not to rehospitalize for frequent aspiration pneumonia but only hospitalized for injury if needed. Patient is a DO NOT RESUSCITATE and she may have comfort food as she tolerates with her.'s of wakefulness and being an alert. She is advanced dementia nonverbal she is very stiff contracted not a good candidate for feeding to and she is multidrug-resistant with history of persistent sepsis secondary to aspiration and UTI. Patient's IV was leaking so we DC'd the IV, normal [facility] number labs plan to discharge back to facility tomorrow with hospice services. I did attempt to call the hospice/palliative care provider who states that hospice facility will be able to admit her tomorrow back at the facility. DC IV antibiotics and continued as needed Ativan and Roxanol if needed. - Plan Summary Plan Summary: Plan discharge to nursing tomorrow with full service hospice
[2017-07-26] MEDS: LEVOTHYROXINE SODIUM 0.075 MG TABLET PO SCH (05:49)
[2017-07-26] MEDS: LEVOTHYROXINE SODIUM 0.1 MG TABLET PO SCH (05:49)
[2017-07-26] MEDS: GUAIFENESIN SYRP 200 MG/10 ML UDC PO SCH ×3 (05:49→13:18)
[2017-07-26] MEDS: CARVEDILOL 12.5 MG TABLET PO SCH (10:38)
[2017-07-26] MEDS: CALCIUM CARBONATE 500 MG TABLET PO SCH (10:38)
[2017-07-26] MEDS: VALSARTAN 160 MG TABLET PO SCH (10:38)
[2017-07-26] MEDS: AMLODIPINE BESYLATE 10 MG TABLET PO SCH (10:38)
[2017-07-26 13:43] VITALS: BP 184/81
--- NOTE | 2017-07-26 14:01 | PDOC TRANSFER SUMMARY ---
General - Admit/Disc Date/PCP Admission Date/Primary Care Provider: 07/22/17 12:29 Discharge Date: 07/26/17 - Discharge Diagnosis (1) Acute kidney injury (nontraumatic) Is this a current diagnosis for this admission?: Yes Summary: Continue to monitor her renal function as necessary only. (2) Aspiration pneumonia Is this a current diagnosis for this admission?: Yes Summary: 77-year-old female past medical history includes advanced dementia with multiple hospitalizations for chronic aspiration pneumonia. Patient was brought in again with fever refusing Tylenol. She was started on IV antibiotics minimal benefits. She is still considered a very high risk for aspiration long discussion with family regarding feeding tube which we had Dr. Bernal the surgeon come by and evaluate the patient because of her multiple contractures she is really not a candidate for placement of the PEG without some difficulty. Patient had periods of alertness she slept a good bit where she would have periods of groaning. Long discussion with her POA and family regarding goals of care. Recommend patient return back to nursing facility for service hospice she may continue her comfort feed diet pured and if we are able to take her medications but not to force her or continue to readmit her since she has become multidrug-resistant with antibiotics blood cultures. (3) Advanced dementia Is this a current diagnosis for this admission?: Yes Summary: Advanced possible end-stage dementia with adult failure to thrive with weight loss, significant decline in the last few months. Would not be surprised if patient past 6 months or less. She is very eligible for full service hospice and she was evaluated by our palliative care team. Continue with comfort food diet as tolerated family aware of her high risk for aspiration. Would not transfer back to the hospital unless an injury due to her multidrug-resistant antibiotic use for chronic UTIs and aspiration. Continue hospice/palliative care services and nursing. (4) MRSA (methicillin resistant staph aureus) culture positive Is this a current diagnosis for this admission?: Yes (5) Pneumonia Is this a current diagnosis for this admission?: Yes Summary: Seems to be stable and afebrile she did receive some IV antibiotics (6) Altered mental status Is this a current diagnosis for this admission?: Yes (7) Right upper lobe pneumonia Is this a current diagnosis for this admission?: Yes - Additional Information Resuscitation Status: Do Not Resuscitate Discharge Diet: Regular - Pured Discharge Activity: Activity As Tolerated Home Medications: Acetaminophen [Tylenol] 650 mg PO Q8 07/22/17 Amlodipine Besylate/Valsartan [Amlodipine-Valsartan 10-320 mg] 1 tab PO DAILY Amoxicillin/Potassium Clav [Amox-Clav 250-62.5 mg/5 ml Kimberly] 500 mg PO Q8 Aspirin/Dipyridamole [Aggrenox 25 mg-200 mg Capsule] 1 cap PO Q12 07/22/17 Betamet Diprop/Prop Gly [Betamethasone Dp Aug 0.05% Cream] 1 applic TP BID 07/22 Calcipotriene [Dovonex Cream] 1 applic TP MOTUWETHFR@1000,1800 07/22/17 Calcium Carbonate [Calcium] 600 mg PO BID 07/22/17 Carvedilol [Coreg 12.5 mg Tablet] 12.5 mg PO Q12 07/22/17 Cetirizine HCl [Zyrtec 10 mg Tablet] 10 mg PO DAILY 07/22/17 Clobetasol Propionate/Emoll [Clobetasol Emollient 0.05% Crm] 1 applic TP BIDP PRN 07/22/17 Ketoconazole [Nizoral 2% Shampoo 120 ml Bottle] 1 applic TP ASDIR PRN 07/22/17 Levothyroxine Sodium [Synthroid] 175 mcg PO Q6AM 07/22/17 Risperidone [Risperdal] 0.5 mg PO DAILYP PRN 07/22/17 Guaifenesin [Robitussin Syrup 200 mg/10 ml Ud Cup] 400 mg PO Q4HWA udc Levalbuterol HCl [Xopenex Neb 0.63 mg/3 ml Ampul] 0.63 mg NEB RTQ6HP PRN vial.neb 07/26/17 Lorazepam [Ativan 0.5 mg Tablet] 0.5 mg PO TIDP PRN #30 tablet 07/26/17 Morphine Sulfate [Roxanol] 5 mg PO Q2 PRN #30 ml 07/26/17 History of Present Illness Admission Date/PCP: 07/22/17 12:29 Patient complains of: fever History of Present Illness: ZAMZAM BIANCHI is a 77 year old female patient was admitted with aspiration pneumonia fever sepsis. She was put back on antibiotics blood cultures were negative however suspect patient has some multidrug resistance due to multiple hospitalizations for recurrent aspiration pneumonia. She continued to have some failure to thrive however today she was a little better than usual. Long discussion regarding making patient n.p.o. given her feeding to due to her body contractures and habitus the surgeon did not feel that this will be a good candidate for her and she is still high risk for aspiration. So comfort food/ measures but if patient is able and can take her medications and willing then we will continue to order them but she may refuse if she likes. Hospice consult was obtained and a DNR. Patient was given a prescription for Roxanol and Ativan as needed for pain, discomfort, dyspnea and agitation. On discussion with family all of her POA and family seem to be on board with decision-making patient was stable to be discharged back to her nursing facility today. Greater than 50% of my time spent counseling for care for discharge needs and plans today approximately 45 minutes was spent Physical Exam Vital Signs: Temp Pulse Resp BP Pulse Ox 98.2 F 52 L 18 173/69 H 95 07/26/17 07:33 07/26/17 07:54 07/26/17 07:33 07/26/17 07:33 07/26/17 07:33 Intake & Output 07/25/17 07/26/17 07/27/17 06:59 06:59 06:59 Intake Total 360 160 Balance 360 160 Weight 58.9 kg 58.2 kg General appearance: PRESENT: no acute distress Head exam: PRESENT: atraumatic Eye exam: PRESENT: conjunctiva pink, EOMI, PERRLA. ABSENT: scleral icterus Mouth exam: PRESENT: dry mucosa Teeth exam: PRESENT: poor dentation Respiratory exam: PRESENT: rhonchi Cardiovascular exam: PRESENT: irregular rhythm GI/Abdominal exam: PRESENT: normal bowel sounds, soft. ABSENT: distended, guarding, mass, organolmegaly, rebound, tenderness Rectal exam: PRESENT: deferred Neurological exam: PRESENT: alert, altered Focused psych exam: PRESENT: psychomotor agitation Skin exam: PRESENT: intact, warm Results Laboratory Results: 07/23/17 05:58 07/23/17 05:58 Impressions: Chest X-Ray 07/22/17 08:42 IMPRESSION: Interval improvement in the right upper lobe airspace disease. Other findings as noted above Transfer Plan - Disposition Transfer Plan: Transfer back to her same nursing facility with full service hospice care. Comfort care measures with comfort feed by mouth as tolerated recommended thickened liquids and pured diet. Transfer back to [facility] plan admit. Was hospice today. For comfort measures only. No further IV antibiotics or p.o. antibiotics given at this time. - Time Spent with Patient Time spent with patient: Greater than 30 Minutes Qualifiers Reason(s) for not prescribing Overlap Therapy:: Comfort Measure, Hospice Care Reason(s) for not prescribing Anti-thrombolytic therapy:: Comfort Measure, Hospice Care
== END 2017-07-26 15:17 | disposition hospice, inpatient (51) | DRG 178 ==
LOC: ER 08:14 → EH 12:29 → 3S 15:36
PROVIDERS: ADMIT Internal Medicine; ATTEND Internal Medicine
DX: J69.0 Pneumonitis due to inhalation of food and vomit (principal); N17.9 Acute kidney failure, unspecified; I69.354 Hemiplegia and hemiparesis following cerebral infarction affecting left non-dominant side; N39.0 Urinary tract infection, site not specified; Z51.5 Encounter for palliative care; F03.90 Unspecified dementia, unspecified severity, without behavioral disturbance, psychotic disturbance, mood disturbance, and anxiety; R62.7 Adult failure to thrive; B95.62 Methicillin resistant Staphylococcus aureus infection as the cause of diseases classified elsewhere; Z16.24 Resistance to multiple antibiotics; I25.10 Atherosclerotic heart disease of native coronary artery without angina pectoris; I10 Essential (primary) hypertension; E11.9 Type 2 diabetes mellitus without complications; E03.9 Hypothyroidism, unspecified; M19.90 Unspecified osteoarthritis, unspecified site; L40.9 Psoriasis, unspecified; I49.5 Sick sinus syndrome; D64.9 Anemia, unspecified; F31.9 Bipolar disorder, unspecified; Z88.6 Allergy status to analgesic agent; I25.2 Old myocardial infarction; Z95.0 Presence of cardiac pacemaker
CPT/HCPCS: 36415; 51701; 71010; 80048; 80053; 81001; 82550; 82553; 83605; 84484; 85025; 85027; 87040; 87086; 93005; 93010; 94640; 99285; J1644; J1940; J2185; J2543; J3370; J3490; J7614; J7620